=== PATIENT | male | born 1965 | race African-American/Black ===

== ENCOUNTER → 2017-07-02 | Day surgery (SDC) | payer MEDICARE ==
[2017-07-02 07:48] VITALS: TEMP 97.7
--- NOTE | 2017-07-02 11:56 | SPC ---
LEFT UPPER EXTREMITY ARTERIOVENOUS DIALYSIS FISTULOGRAM AND VENOGRAM TO THE SVC: TOOL DRAWING CHECKER FOCAL STENOSIS VENOUS OUTFLOW: 07/02/2017 HISTORY: End-stage renal disease. The patient has a left upper extremity arteriovenous dialysis fistula with inadequacy at dialysis. TECHNIQUE: After informed consent was obtained, the patient was placed on the angiography table in the supine po sition. The left upper extremity was meticulously prepped and draped in the usual sterile fashion. The skin and subcutaneous tissues were infiltrated with buffered 1% Lidocaine for local anesthesia at the intended puncture site. A left upper extremity arteriovenous dialysis fistula was accessed and directed in a venous direction utilizing a micropuncture technique. A 5 [place] Citizen introducer sheath was placed. A fistulogram and venogram of the SVC was performed. Manual compression was applied to the venous ou tflow, and contrast was refluxed into the arteriovenous anastomotic. A focal area of narrowing was seen in the venous outflow, at the level of the venous anastomosis. PT A with 6 mm followed by 7 mm in diameter angioplasty balloons was performed. There was persistence o f this narrowing after angioplasty, although the degree of narrowing was mildly improved. There was brisk flow and wash-out of the fistula. The procedure was terminated at this point. The guide wire and 5 [place] Citizen vascular sheath were removed. Hemostasis was achieved with direct pressure. The patien t tolerated the procedure well and without immediate complications. The patient was transported to [facility] radiology nurses' holding area for further monitoring prior to discharge. FINDINGS: LEFT UPPER EXTREMITY ARTERIOVENOUS DIALYSIS FISTULA: There is evidence of prior post surgical change s with a stent overlying the expected location of the cephalic vein outflow, at the level of the henrietta ohumeral joint. Embolization coils are also seen within collateral vessels. When compared to prior exam on 05/11/2016, there is a new venous anastomotic at the level of the proximal humerus. In this region, there is a focal area of moderate to severe narrowing, and the degree of narrowing is greater than 50%, compared to the caliber of the fistula proximal to this area of narrowing. As a result, a ngioplasty was performed with a 6 mm angioplasty balloon. The angioplasty balloon was able to achiev e full profile, but the area of narrowing did persist on follow-up venogram. As a result, a 7 mm fabby meter angioplasty balloon was then placed, and TOOL DRAWING CHECKER was performed; however, the waist in the balloon w as unable to be resolved after repeated insufflations. The area of narrowing did mildly improve but certainly persists. There is brisk flow and wash-out through the fistula. There is an additional area of narrowing seen in the proximal venous outflow, but this is also the si te of access of the fistula. This focal area of narrowing was also present on the study of 7. Angioplasty of this region was not performed due to the access site. Again, there is brisk flow and wash-out present. The proximal portion of the venous outflow is unchanged compared to the study on 05/11/2016. Arteriovenous anastomosis is patent, and the venous outflow is otherwise patent to the SVC. IMPRESSION: 1. Moderate to severe focal narrowing at the level of the venous anastomosis, and there has been int erval revision of the arteriovenous dialysis fistula when compared to the study on 05/11/2016. 2. Percutaneous transluminal angioplasty of a focal area of narrowing at the venous anastomosis, up to 7 mm in diameter. While there is mild improvement in the diameter in this region, the angioplasty balloon was unable to reach full profile. 3. Focal narrowing in the proximal venous outflow, but this was also present on the study of 017. 4. Patent arteriovenous anastomosis. The above findings were discussed with Dr. Pierre at the termination of this procedure. CODE CR POS: CALE
== END ==
LOC: SPEC 07:09
PROVIDERS: ATTEND Internal Medicine Nephrology
PROC: 057F3ZZ Dilation of Left Cephalic Vein, Percutaneous Approach (ICD-10-PCS; principal; 2017-07-02)
DX: T82.858A Stenosis of other vascular prosthetic devices, implants and grafts, initial encounter (principal); I12.0 Hypertensive chronic kidney disease with stage 5 chronic kidney disease or end stage renal disease; E11.22 Type 2 diabetes mellitus with diabetic chronic kidney disease; N18.6 End stage renal disease; Z79.84 Long term (current) use of oral hypoglycemic drugs; Z79.899 Other long term (current) drug therapy; Z99.2 Dependence on renal dialysis
CPT/HCPCS: 36901; 36902; C1725; C1769

== ENCOUNTER 2019-02-01 15:49 | Emergency (ER) | payer MEDICARE ==
[2019-02-01 16:34] LABS: #Basophils 0.1 thou/uL (0.0-0.2); #Eosinphils 0.4 thou/uL (0.0-0.7); #Lymphocytes 1.6 thou/uL (1.20-3.40); #Monocytes 1.2 thou/uL (0.11-0.59); #Neutrophils 7.6 thou/uL (1.40-6.50); %Basophils 0.5 % (0.0-1.0); %Monocytes 10.7 % (0.0-10.0); %Neutrophils 69.7 % (42.0-75.0); Hemoglobin 11.3 g/dL (14.0-18.0); Mean Corpuscular HGB CONC 33.3 g/dL (32.0-36.0); Mean Corpuscular Hemoglobin 30.6 pg (27.0-31.0); Mean Corpuscular Volume 91.8 fL (78.0-98.0); Mean Platelet Volume 7.2 fL (7.4-10.4); Platelet Count 305 thou/uL (130-400); RBC Distribution Width 12.6 % (11.5-14.5); Red Blood Cell (RBC) Count 3.68 mill/uL (4.70-6.10); White Blood Cell (WBC) Count 10.9 thou/uL (4.8-10.8)
[2019-02-01] MEDS ORDERED: Iopamidol-370 76% 500 ML 1 ML ONE (16:51)
[2019-02-01 16:53] LABS: ALT (SGPT) 7 U/L (8-55); AST (SGOT) 13 U/L (5-34); Albumin 3.7 g/dL (3.5-5.0); Alkaline Phosphatase 70 U/L (40-110); Anion Gap 19 mmol/L (10-20); BUN (Urea Nitrogen) 41 mg/dL (8.4-25.7); Bilirubin, Total 0.3 mg/dL (0.2-1.2); Calc. Creatinine Clearance 0 mL/min (70-130); Calcium 8.6 mg/dL (7.8-10.44); Carbon Dioxide 26 mmol/L (22-29); Chloride 96 mmol/L (98-107); Estimated GFR-MDRD 5; Globulin 4.4 g/dL (2.4-3.5); Glucose 102 mg/dL (70-105); Protein, Total 8.1 g/dL (6.0-8.3); Sodium 137 mmol/L (136-145)
[2019-02-01] MEDS ORDERED: Fentanyl 100 MCG/2 ML VIAL ONE (17:44)
--- NOTE | 2019-02-01 21:17 | CT ---
ABDOMEN CT WITH CONTRAST PELVIC CT WITH CONTRAST: Date: 02/01/19 COMPARISON: 05/14/16. HISTORY: Abdominal pain, hypertension and end-stage renal disease. FINDINGS: ABDOMEN CT: Dependent atelectatic changes in the lung bases. Heart is enlarged. No significant pericardial fluid. Visualized aorta has a normal caliber. No periaortic fat stranding. Atherosclerosis of the celiac ar louie is noted. Portal vein is patent. Unremarkable gallbladder. Liver, spleen, pancreas, and adrenal glands have appropriate attenuation. No gastrohepatic, retrocrural, or periportal lymphadenopathy. There are enlarged left periaortic lymp h nodes. Type Disk Quality Control Supervisor lymph node measures 1.2 cm. Symmetric attenuation of the psoas muscles. Symmetric enhancement of the kidneys. Exophytic hypodensities compatible with renal cortical cysts. B ilaterally, no obstructive uropathy. No mesenteric mass, lymphadenopathy, free air, or free fluid. Limited evaluation of the alimentary canal by lack of oral contrast. No evidence of bowel obstruction . Normal ileocecal junction. Normal caliber appendix. Scattered fecal material in nondistended, nondilated colon. CT PELVIS: Limited evaluation of the urinary bladder due to inadequate distention. No pelvic mass, lymphadenopat hy, free air, or free fluid. There is perirectal fat stranding. The possibility of proctitis cannot b e excluded. There are no lytic or blastic lesions in the osseous structures. IMPRESSION: Possible proctitis. POS: P[facility]
== END 2019-02-01 21:01 | disposition home or self-care (01) ==
LOC: ERS 15:49
DX: K62.89 Other specified diseases of anus and rectum (principal); I12.0 Hypertensive chronic kidney disease with stage 5 chronic kidney disease or end stage renal disease; E11.22 Type 2 diabetes mellitus with diabetic chronic kidney disease; N18.6 End stage renal disease; Z99.2 Dependence on renal dialysis; Z79.899 Other long term (current) drug therapy
CPT/HCPCS: 36415; 74177; 80053; 85025; 96372; 96374; J0500; J3010; Q9967

== ENCOUNTER 2019-02-09 15:38 | Emergency (ER) | payer MEDICARE ==
[2019-02-09 17:10] LABS: #Eosinphils 0.3 thou/uL (0.0-0.7); #Lymphocytes 1.8 thou/uL (1.20-3.40); %Basophils 0.3 % (0.0-1.0); %Eosinophils 3.1 % (0.0-10.0); %Lymphocytes 17.7 % (21.0-51.0); %Monocytes 9.6 % (0.0-10.0); %Neutrophils 69.4 % (42.0-75.0); Hemoglobin 10.3 g/dL (14.0-18.0); Mean Corpuscular Hemoglobin 29.7 pg (27.0-31.0); Mean Corpuscular Volume 92.8 fL (78.0-98.0); Mean Platelet Volume 6.6 fL (7.4-10.4); Platelet Count 349 thou/uL (130-400); RBC Distribution Width 12.8 % (11.5-14.5); Red Blood Cell (RBC) Count 3.46 mill/uL (4.70-6.10); White Blood Cell (WBC) Count 10.1 thou/uL (4.8-10.8)
[2019-02-09 17:39] LABS: ALT (SGPT) 10 U/L (8-55); AST (SGOT) 17 U/L (5-34); Albumin 3.7 g/dL (3.5-5.0); Alkaline Phosphatase 55 U/L (40-110); Anion Gap 16 mmol/L (10-20); BUN (Urea Nitrogen) 49 mg/dL (8.4-25.7); Bilirubin, Total 0.2 mg/dL (0.2-1.2); Calc. Creatinine Clearance 0 mL/min (70-130); Calcium 9.1 mg/dL (7.8-10.44); Carbon Dioxide 28 mmol/L (22-29); Chloride 96 mmol/L (98-107); Estimated GFR-MDRD 4; Globulin 4.5 g/dL (2.4-3.5); Glucose 108 mg/dL (70-105); Protein, Total 8.2 g/dL (6.0-8.3); Sodium 136 mmol/L (136-145)
== END 2019-02-09 18:05 | disposition home or self-care (01) ==
LOC: ERS 15:38
DX: I12.0 Hypertensive chronic kidney disease with stage 5 chronic kidney disease or end stage renal disease (principal); N18.6 End stage renal disease; E11.22 Type 2 diabetes mellitus with diabetic chronic kidney disease; Z79.891 Long term (current) use of opiate analgesic; Z79.899 Other long term (current) drug therapy
CPT/HCPCS: 36415; 80053; 85025; 99283

== ENCOUNTER 2019-03-21 18:30 | Emergency (ER) | payer MEDICARE ==
--- NOTE | 2019-03-21 19:22 | RAD ---
PORTABLE CHEST: 03/21/19 HISTORY: Cough and fever. COMPARISON: 08/13/14 study. Heart size is within normal limits for portable technique. Some slightly increased markings are seen in the lung bases. Cannot exclude this as some early developing infiltrative change although it coul d just be related to overlying soft tissue. IMPRESSION: Minimally increased markings in the lung bases. Cannot exclude some minimal infiltrate, particularly adjacent to the left heart border. POS: [facility]
[2019-03-21] MEDS ORDERED: Acetaminophen 500 MG TAB ONE (20:10)
[2019-03-21] MEDS ORDERED: cefTRIAXone\\ROCEPHIN 2 GM VIAL ONE (20:10)
[2019-03-21] MEDS ORDERED: Lidocaine 1% (PF) 30 ML VIAL ONE (20:10)
[2019-03-21] MEDS ORDERED: Ondansetron ODT 8 MG TAB ONE (20:10)
[2019-03-21 20:37] LABS: #Eosinphils 0.1 thou/uL (0.0-0.7); #Lymphocytes 1.5 thou/uL (1.20-3.40); #Monocytes 0.9 thou/uL (0.11-0.59); #Neutrophils 11.5 thou/uL (1.40-6.50); %Basophils 0.1 % (0.0-1.0); %Eosinophils 0.9 % (0.0-10.0); %Lymphocytes 10.4 % (21.0-51.0); %Monocytes 6.7 % (0.0-10.0); %Neutrophils 81.9 % (42.0-75.0); Hemoglobin 10.5 g/dL (14.0-18.0); Mean Corpuscular HGB CONC 31.5 g/dL (32.0-36.0); Mean Corpuscular Hemoglobin 29.4 pg (27.0-31.0); Mean Corpuscular Volume 93.4 fL (78.0-98.0); Mean Platelet Volume 8.8 fL (7.4-10.4); Platelet Count 195 thou/uL (130-400); RBC Distribution Width 14.4 % (11.5-14.5); Red Blood Cell (RBC) Count 3.58 mill/uL (4.70-6.10)
[2019-03-21 20:53] LABS: ALT (SGPT) 23 U/L (8-55); AST (SGOT) 13 U/L (5-34); Albumin 3.6 g/dL (3.5-5.0); Alkaline Phosphatase 53 U/L (40-110); Anion Gap 19 mmol/L (10-20); BUN (Urea Nitrogen) 35 mg/dL (8.4-25.7); Bilirubin, Total 0.5 mg/dL (0.2-1.2); Calc. Creatinine Clearance 0 mL/min (70-130); Calcium 8.9 mg/dL (7.8-10.44); Carbon Dioxide 24 mmol/L (22-29); Chloride 99 mmol/L (98-107); Estimated GFR-MDRD 7; Glucose 103 mg/dL (70-105); Potassium 3.7 mmol/L (3.5-5.1); Protein, Total 7.6 g/dL (6.0-8.3); Sodium 138 mmol/L (136-145)
[2019-03-21] MEDS ORDERED: cloNIDine 0.1 MG TAB ONE (21:35)
== END 2019-03-21 22:10 | disposition home or self-care (01) ==
LOC: ERS 18:30
DX: J18.9 Pneumonia, unspecified organism (principal); I12.0 Hypertensive chronic kidney disease with stage 5 chronic kidney disease or end stage renal disease; E11.22 Type 2 diabetes mellitus with diabetic chronic kidney disease; N18.6 End stage renal disease; Z99.2 Dependence on renal dialysis
CPT/HCPCS: 36415; 71045; 80053; 85025; 87040; 87804; 96372; J0696; J2001

== ENCOUNTER 2020-04-10 12:42 | Inpatient (IN) | payer MEDICARE ==
[2020-04-10] MEDS ORDERED: Vancomycin 1 GM/200 ML BAG ONE ×2 (13:28→16:18)
[2020-04-10] MEDS ORDERED: Cefepime 2 GM VIAL ONE (13:28)
[2020-04-10 14:15] LABS: Hemoglobin 11.4 g/dL (14.0-18.0); Mean Corpuscular HGB CONC 31.7 g/dL (32.0-36.0); Mean Corpuscular Hemoglobin 29.9 pg (27.0-31.0); Mean Corpuscular Volume 94.2 fL (78.0-98.0); Mean Platelet Volume 7.9 fL (7.4-10.4); Platelet Count 312 thou/uL (130-400); RBC Distribution Width 13.6 % (11.5-14.5); Red Blood Cell (RBC) Count 3.82 mill/uL (4.70-6.10); White Blood Cell (WBC) Count 19.1 thou/uL (4.8-10.8)
--- NOTE | 2020-04-10 14:16 | RAD ---
RIGHT FOOT RADIOGRAPHS: Date: 04-10-2020 PROVIDED CLINICAL HISTORY: Right foot blister Comparison: 09-22-15 FINDINGS: There is soft tissue swelling about the great toe proximally. Foci of soft tissue gas are seen. There is no osteolytic process evident. The first MTP and first IP joint spaces appear preserved. Small pl rusty calcaneal enthesophyte. Vascular calcification is noted. IMPRESSION: Soft tissue swelling and soft tissue gas about the proximal great toe compatible with infectious greer ge. There is no radiographic evidence for osteomyelitis. POS: [facility]
[2020-04-10] MEDS ORDERED: Lidocaine 1% (PF) 30 ML VIAL ONE (14:26)
[2020-04-10 14:30] LABS: Magnesium 2.4 mg/dL (1.6-2.6)
[2020-04-10 14:32] LABS: ALT (SGPT) 14 U/L (8-55); AST (SGOT) 25 U/L (5-34); Albumin 3.7 g/dL (3.5-5.0); Alkaline Phosphatase 76 U/L (40-110); Anion Gap 24 mmol/L (10-20); BUN (Urea Nitrogen) 55 mg/dL (8.4-25.7); Band 8 % (5-11); Bilirubin, Total 0.5 mg/dL (0.2-1.2); Calc. Creatinine Clearance 0 mL/min (70-130); Carbon Dioxide 24 mmol/L (22-29); Chloride 89 mmol/L (98-107); Globulin 4.4 g/dL (2.4-3.5); Glucose 159 mg/dL (70-105); Lymphocytes 2 % (21-51); MDiff Complete? YES; Monocytes 6 % (0-10); Neutrophil 84 % (42-75); Platelet Morphology Comment Appears Adequate; Polychromasia SLIGHT = 2-3 cells (100X) (0-2/hpf); Protein, Total 8.1 g/dL (6.0-8.3); Sodium 133 mmol/L (136-145)
[2020-04-10] MEDS ORDERED: Bacitracin 1 PK ONE (14:50)
[2020-04-10] MEDS ORDERED: Boostrix 0.5 ML (Tdap) VIAL ONE (15:26)
[2020-04-10] MEDS ORDERED: Acetaminophen 325 MG TAB PO PRN (16:01)
--- NOTE | 2020-04-10 16:07 | PDOC.HHP ---
Hospitalist HPI - History of Present Illness Abscess on right great toe History of Present Illness: 55-year-old gentleman with a history of end-stage renal disease on hemodialysis presented to the emergency department with a complaint of an abscess on the sole of the right great toe. Patient stated he developed a small blister on the right great toe 2 days ago. It rapidly progressed to form a fluctuant abcess. He denies any pain in the lesion. He denies any fever. Blood work in the emergency department demonstrated leukocytosis with BBC count up to 19,000. X- ray of the foot demonstrated soft tissue swelling and soft tissue gas in the right great toe. It demonstrated no bony involvement. Patient met criteria for sepsis in the ED with leukocytosis and tachycardia. He is afebrile. The ED ph ysician did an I&D and reports about 20 ml of pus was drained from the lesion. Patient is admitted for further management. ED Course: IV vancomycin IV cefepime Tetanus booster shot Hospitalist ROS - Medication Medications: Except as documented, all other systems reviewed and negative. Hospitalist History - Past Medical History Renal/: reports: Other (End-stage renal disease on hemodialysis) Endocrine: reports: Diabetes Other Medical History: Obesity. - Past Surgical History Other Surgical History: Left arm AV fistula. - Family History Family History: reports: cancer (Father had lung cancer), diabetes mellitus (Mother) - Social History Smoking Status: Never smoker Alcohol: reports: None - Exam General Appearance: NAD, awake alert Eye: PERRL, anicteric sclera ENT: normocephalic atraumatic, moist mucosa Neck: supple, no JVD Heart: RRR, no murmur, normal peripheral pulses Respiratory: CTAB, no wheezes, no rales, no ronchi Gastrointestinal: soft, non-tender, non-distended, normal bowel sounds Extremities: no cyanosis, no edema Skin - other findings: I & D Fluctuant lesion-dorsum of right great toe. Neurological: cranial nerve grossly intact, no weakness, no focal deficits Musculoskeletal: normal tone, normal strength Psychiatric: normal affect, normal behavior, A&O x 3 Hospitalist Results - Labs Result Diagrams: 04/10/20 13:32 04/10/20 13:32 Lab results: WBC 19.1 thou/uL (4.8-10.8) H 04/10/20 13:32 Hgb 11.4 g/dL (14.0-18.0) L 04/10/20 13:32 Hct 36.0 % (42.0-52.0) L 04/10/20 13:32 MCV 94.2 fL (78.0-98.0) 04/10/20 13:32 Plt Count 312 thou/uL (130-400) 04/10/20 13:32 Band Neuts % (Manual) 8 % (5-11) 04/10/20 13:32 Sodium 133 mmol/L (136-145) L 04/10/20 13:32 Potassium 4.0 mmol/L (3.5-5.1) 04/10/20 13:32 Chloride 89 mmol/L (98-107) L 04/10/20 13:32 Carbon Dioxide 24 mmol/L (22-29) 04/10/20 13:32 BUN 55 mg/dL (8.4-25.7) H 04/10/20 13:32 Creatinine 12.90 mg/dL (0.7-1.3) H 04/10/20 13:32 Glucose 159 mg/dL (70-105) H 04/10/20 13:32 Lactic Acid 1.4 mmol/L (0.5-2.2) 04/10/20 13:32 Calcium 9.0 mg/dL (7.8-10.44) 04/10/20 13:32 Total Bilirubin 0.5 mg/dL (0.2-1.2) 04/10/20 13:32 AST 25 U/L (5-34) 04/10/20 13:32 ALT 14 U/L (8-55) 04/10/20 13:32 Alkaline Phosphatase 76 U/L (40-110) 04/10/20 13:32 Serum Total Protein 8.1 g/dL (6.0-8.3) 04/10/20 13:32 Albumin 3.7 g/dL (3.5-5.0) 04/10/20 13:32 Hospitalist H&P A/P - Problem (1) Cellulitis and abscess of toe of right foot Code(s): L03.031 - CELLULITIS OF RIGHT TOE; L02.611 - CUTANEOUS ABSCESS OF RIGHT FOOT Status: Acute (2) Sepsis Code(s): A41.9 - SEPSIS, UNSPECIFIED ORGANISM Status: Acute (3) Diabetes mellitus type 2 in obese Code(s): E11.69 - TYPE 2 DIABETES MELLITUS WITH OTHER SPECIFIED COMPLICATION; E66.9 - OBESITY, UNSPECIFIED Status: Acute (4) End stage renal disease on dialysis Code(s): N18.6 - END STAGE RENAL DISEASE; Z99.2 - DEPENDENCE ON RENAL DIALYSIS Status: Chronic - Plan Plan: Sepsis protocol initiated in the ED. Lactate less than 2. Admit to the medical floor. Continue IV cefepime and vancomycin started in the ED. Follow blood cultures and deep tissue wound culture. Consult to nephrology for hemodialysis. Given the presence of gas in the lesion suggesting gas gangrene, will consult general surgery to evaluate. Wound care consult requested. Check hemoglobin A1c.
[2020-04-10] MEDS ORDERED: Vancomycin HCl 1 GM in Sodium Chloride 0.9% 250 ML 250 ML IVPB SCH (16:15)
--- NOTE | 2020-04-10 17:27 | CON ---
DATE OF CONSULTATION: 04/10/2020 CONSULTING PHYSICIAN: Dr. Tucker from ER. REASON FOR CONSULTATION: End-stage renal disease evaluation and care. REASON FOR ADMISSION: Right leg pain, positive for cellulitis. HISTORY OF PRESENT ILLNESS: This is a 55-year-old male with history of end-stage renal disease, hypertension, type 2 diabetes, who came to the hospital with above complaints and is evaluated and being admitted. He gets dialysis on Saturday, Saturday, and Saturday. Nephrology consulted for maintenance hemodialysis. He denies any nausea or vomiting. No shortness of breath. He is not hypoxic. PAST MEDICAL HISTORY: Positive for type 2 diabetes; end-stage renal disease, on hemodialysis on Saturday, Saturday, and Saturday; hypertension; and peripheral vascular disease. PAST SURGICAL HISTORY: Left great toe amputation and dialysis access placement. HOME MEDICATIONS: Reviewed. ALLERGIES: NO KNOWN DRUG ALLERGIES. SOCIAL HISTORY: No smoking, alcohol, or illicit drugs abuse. FAMILY HISTORY: No history of kidney disease. REVIEW OF SYSTEMS: CONSTITUTIONAL: Negative for weight loss or gain, ability to conduct usual activities. SKIN: Negative for rash, itching. EYES: Negative for double vision, pain. ENT/MOUTH: Negative for nose bleeding, neck stiffness, pain, tenderness. CARDIOVASCULAR: Negative for palpitations, dyspnea on exertion, orthopnea. RESPIRATORY: Negative for shortness of breath, wheezing, cough, hemoptysis, fever or night sweats. GASTROINTESTINAL: Negative for poor appetite, abdominal pain, heartburn, nausea, vomiting, constipation, or diarrhea. GENITOURINARY: Negative for urgency, frequency, dysuria, nocturia. MUSCULOSKELETAL: Negative for pain, swelling. NEUROLOGIC/PSYCHIATRIC: Negative for anxiety, depression. ALLERGY/IMMUNOLOGIC: Negative for skin rash, bleeding tendency. PHYSICAL EXAMINATION: GENERAL: This is a well-built male, in no apparent distress. VITAL SIGNS: Reviewed. HEENT: Atraumatic, normocephalic. NECK: Supple. CV: S1 and S2. Rate and rhythm regular. RESPIRATORY: Clear. GASTROINTESTINAL: Abdomen is soft. MUSCULOSKELETAL: 1+ edema and ulcer present in the right lower leg. NEUROLOGICAL: Alert, awake. Moving all the extremities. PSYCHIATRIC: Mood and affect normal. LABORATORY DATA: Hemoglobin 11.4. Potassium 4.0, BUN is 55, creatinine is 12.9. ASSESSMENT AND PLAN: 1. End-stage renal disease. We will continue dialysis on Saturday, Saturday, and Saturday. 2. Edema. 3. History of hypertension. 4. Anemia of chronic disease. 5. Hyponatremia. Continue dialysis on Saturday, Saturday, and Saturday. Thank you for the consult. Continue antibiotics. Job ID: [id number]
[2020-04-10] MEDS ORDERED: hydrALAZINE 20 MG/ML VIAL SLOW IVP PRN (19:01)
[2020-04-10 19:28] VITALS: BMI 38.0
[2020-04-10] MEDS: Heparin 5,000 UNITS/ML VIAL SC SCH (20:23)
[2020-04-10] MEDS ORDERED: cloNIDine 0.1 MG TAB PO SCH (21:00)
[2020-04-10] MEDS ORDERED: chlorproMAZINE HCl 25 MG TAB PO SCH (21:30)
[2020-04-10] MEDS: hydrALAZINE 25 MG TAB PO SCH (21:50)
[2020-04-10] MEDS: Labetalol 100 MG TAB PO SCH (21:50)
[2020-04-10 23:15] LABS: SARS-CoV-2 PCR by NAA Not Detected (NotDetected)
[2020-04-11] MEDS: Cefepime 1 GM in Sodium Chloride 0.9% 100 ML IVPB SCH ×2 (03:48→13:26)
[2020-04-11 06:40] LABS: Anion Gap 24 mmol/L (10-20); BUN (Urea Nitrogen) 69 mg/dL (8.4-25.7); Calc. Creatinine Clearance 10 mL/min (70-130); Calcium 8.9 mg/dL (7.8-10.44); Carbon Dioxide 22 mmol/L (22-29); Chloride 91 mmol/L (98-107); Glucose 135 mg/dL (70-105); Potassium 3.6 mmol/L (3.5-5.1); Sodium 133 mmol/L (136-145)
[2020-04-11 06:47] LABS: Hemoglobin 10.3 g/dL (14.0-18.0); Mean Corpuscular HGB CONC 31.2 g/dL (32.0-36.0); Mean Corpuscular Hemoglobin 29.4 pg (27.0-31.0); Mean Corpuscular Volume 94.2 fL (78.0-98.0); Mean Platelet Volume 7.7 fL (7.4-10.4); Platelet Count 322 thou/uL (130-400); RBC Distribution Width 13.8 % (11.5-14.5); Red Blood Cell (RBC) Count 3.52 mill/uL (4.70-6.10); White Blood Cell (WBC) Count 16.4 thou/uL (4.8-10.8)
[2020-04-11 06:48] LABS: Band 2 % (5-11); Eosinophils 5 % (0-10); Lymphocytes 12 % (21-51); MDiff Complete? YES; Monocytes 10 % (0-10); Neutrophil 71 % (42-75); Platelet Morphology Comment Appears Adequate
[2020-04-11] MEDS: Heparin 5,000 UNITS/ML VIAL SC SCH ×3 (08:46→21:01)
[2020-04-11] MEDS: Lisinopril 20 MG TAB PO SCH (08:47)
[2020-04-11] MEDS: Labetalol 100 MG TAB PO SCH ×2 (08:47→21:01)
[2020-04-11] MEDS: hydrALAZINE 25 MG TAB PO SCH ×4 (08:47→21:01)
--- NOTE | 2020-04-11 19:09 | PRG ---
DATE OF SERVICE: 04/11/2020 SUBJECTIVE: A 55-year-old gentleman being seen for end-stage renal disease. The patient denied any nausea, vomiting, or chest pain. OBJECTIVE: GENERAL: The patient is awake and alert. VITAL SIGNS: Afebrile, pulse 78, breathing at 16, blood pressure 124/60. HEENT: Head normocephalic and atraumatic. Eyes intact, no ulcers. Nose intact, no ulcers. Ears intact, no ulcers. NECK: Supple. No JVD. CHEST: Symmetrical and clear. CARDIOVASCULAR: Shows S1 and S2, no rub, no murmur. GASTROINTESTINAL: Abdomen is soft, bowel sounds positive. EXTREMITIES: Show no edema or ulcers. SKIN: Shows no rash or petechiae. MUSCULOSKELETAL: Shows no joint swelling or stiffness. GENITOURINARY: Shows no Madsen or CVA tenderness. NEUROLOGIC: Motor intact. Cranial nerves intact. LABORATORY DATA: Show hemoglobin 10.3. Creatinine 14.6. ASSESSMENT AND PLAN: 1. Chronic kidney disease, stage 6. Plan dialysis. 2. Hypertension, stable. 3. Anemia, stable. 4. Medication based on GFR, appropriate. Job ID: [id number]
--- NOTE | 2020-04-11 19:37 | PDOC.HOSPP ---
- Subjective Encounter Date: 04/11/20 Encounter Time: 18:00 Subjective: f/u for DM R great toe ulcer with plans for amputation 04/12/20. Receiving Cefepime/Vancomycin IV. Undergoing HD currently. - Objective Vital Signs & Weight: Vital Signs (12 hours) Temp Pulse Resp BP BP Pulse Ox 04/11/20 19:17 78 04/11/20 15:16 99.1 F 78 18 145/61 H 96 04/11/20 13:24 77 04/11/20 11:52 98.6 F 77 18 124/60 98 04/11/20 08:47 83 159/82 H Weight Weight 279 lb 15.793 oz I&O: 04/10/20 04/11/20 04/12/20 06:59 06:59 06:59 Intake Total 525 Balance 525 Result Diagrams: 04/11/20 05:52 04/11/20 05:52 Additional Labs: Microbiology 04/10/20 14:46 Foot - Pending Bacterial Culture - Preliminary Gram Negative Chivo 04/10/20 13:48 Venous blood - Right Hand Blood Culture - Preliminary Specimen has been received and culture in progress. No Growth to date. 04/10/20 13:32 Venous blood - Right Arm Blood Culture - Preliminary Specimen has been received and culture in progress. No Growth to date. Laboratory Tests 04/10/20 04/10/20 04/10/20 13:32 13:32 13:32 WBC 19.1 H Hgb 11.4 L Neutrophils % (Manual) 84 H Sodium 133 L BUN 55 H Creatinine 12.90 H Phosphorus 5.0 H Magnesium 2.4 SARS-CoV-2 RNA (CHRISTY) 04/10/20 18:25 WBC Hgb Neutrophils % (Manual) Sodium BUN Creatinine Phosphorus Magnesium SARS-CoV-2 RNA (CHRISTY) Not Detected Radiology Reviewed by me: Yes (R foot x-ray - ? osteolytic process of great toe distal phalanx, subq gas) Hospitalist ROS - Medication Medications: Active Medications Generic Name Dose Route Start Last Admin Trade Name Freq PRN Reason Stop Dose Admin Heparin Sodium (Porcine) 5,000 units 04/10/20 21:00 04/11/20 13:26 Heparin 5,000 Units/Ml Vial SC 5,000 units TID DARLENE Administration Hydralazine HCl 25 mg 04/10/20 21:00 04/11/20 19:17 Hydralazine 25 Mg Tab PO Not Given QID DARLENE Cefepime HCl 1 gm/ Sodium 100 mls @ 200 mls/hr 04/11/20 02:00 04/11/20 13:26 Chloride IVPB 100 mls 0200,1400 DARLENE Administration Labetalol HCl 100 mg 04/10/20 21:00 04/11/20 08:47 Labetalol 100 Mg Tab PO 100 mg BID DARLENE Administration Lisinopril 40 mg 04/11/20 09:00 04/11/20 08:47 Lisinopril 20 Mg Tab PO 40 mg DAILY DARLENE Administration Sodium Chloride 10 ml 04/10/20 21:00 04/11/20 08:47 Flush - Normal Saline 10 Ml Syringe IVF 10 ml Q12HR DARLENE Administration - Exam General Appearance: NAD, awake alert Eye: PERRL, anicteric sclera ENT: normocephalic atraumatic, no oropharyngeal lesions Neck: supple, symmetric, no JVD, no thyromegaly, no lymphadenopathy Heart: RRR, no gallops, no rubs, normal peripheral pulses Heart - other findings: S1, S2 Respiratory: CTAB, no wheezes, no rales, no ronchi, normal chest expansion, no tachypnea Gastrointestinal: soft, non-tender, non-distended, normal bowel sounds, no palpable masses Extremities: 1+ LE edema Extremities - other findings: R great toe edema/ulceration/erythema Skin: normal turgor Neurological: cranial nerve grossly intact, no new deficit Musculoskeletal: normal tone, normal strength Psychiatric: normal affect, A&O x 3 Hosp A/P (1) Osteomyelitis of great toe of right foot Code(s): M86.9 - OSTEOMYELITIS, UNSPECIFIED Status: Acute Plan: Plan for amputation of R great toe 04/12/20, continue Cefepime/Vancomycin (2) Cellulitis and abscess of toe of right foot Code(s): L03.031 - CELLULITIS OF RIGHT TOE; L02.611 - CUTANEOUS ABSCESS OF RIGHT FOOT Status: Acute Plan: Continue Cefepime/Vancomycin (3) Diabetes mellitus type 2 in obese Code(s): E11.69 - TYPE 2 DIABETES MELLITUS WITH OTHER SPECIFIED COMPLICATION; E66.9 - OBESITY, UNSPECIFIED Status: Chronic Plan: ISS, check A1C level, ADA, serial accuchecks (4) End stage renal disease on dialysis Code(s): N18.6 - END STAGE RENAL DISEASE; Z99.2 - DEPENDENCE ON RENAL DIALYSIS Status: Chronic Plan: HD per Renal service (5) HTN (hypertension) Code(s): I10 - ESSENTIAL (PRIMARY) HYPERTENSION Status: Chronic Qualifiers: Hypertension type: renovascular hypertension Qualified Code(s): I15.0 - Renovascular hypertension - Plan continue antibiotics, drug abuse social worker Stable currently Continue Cefepime/Vancomycin WCT for local care Pain control as clinically indicated ISS, serial accuchecks NPO after MN AM lab: BMP, CBC, A1C
[2020-04-11] MEDS ORDERED: Dextrose 5% in Water 1,000 ML IV PRN (19:47)
[2020-04-11] MEDS ORDERED: Dextrose 50% Abboject 50 ML SYRINGE SLOW IVP PRN (19:47)
[2020-04-11] MEDS ORDERED: HumaLOG 300 UNITS/3 ML VIAL SC PRN (19:47)
[2020-04-11] MEDS ORDERED: chlorproMAZINE HCl 25 MG TAB PO SCH (21:45)
--- NOTE | 2020-04-11 21:53 | CON ---
DATE OF CONSULTATION: 04/11/2020 CHIEF COMPLAINT: Right great toe infection. HISTORY OF PRESENT ILLNESS: The patient is a 55-year-old very pleasant black gentleman. He presented to the emergency room with concerns regarding his right great toe. He has a history of a left 1st and 2nd toe amputations a few years ago. He believes that this was a blister on his right foot. In the emergency room, a drainage procedure was performed with an incision on the plantar aspect at the base of the 1st toe. Apparently, some purulent material was expressed. Cultures were obtained. Initial culture results show gram-negative rods. The patient denies pain. He is uncertain how this occurred, but believes it may have been related to shoes that he was wearing. In the emergency room, he was apparently tachycardic, but currently his heart rate is in the 70s and regular. His blood pressure is 145/61. PAST MEDICAL HISTORY: Significant for end-stage renal disease, on dialysis; and hypertension. He specifically denies any knowledge of a history of diabetes and denies ever taking any diabetic medications. PAST SURGICAL HISTORY: Left arm AV fistula and had two toe amputations on the left foot. He denies other surgery. MEDICATIONS: He is uncertain of his medications, but takes medications for hypertension. ALLERGIES: NO KNOWN DRUG ALLERGIES. PERSONAL AND SOCIAL HISTORY: He is with one grown child. He does not smoke nor does drink alcohol. He lives here in [place] and his brother lives with him occasionally. The patient is disabled. REVIEW OF SYSTEMS: Otherwise, unremarkable. FAMILY HISTORY: Noncontributory. PHYSICAL EXAMINATION: VITAL SIGNS: Temperature is 99.1, pulse 78, blood pressure 145/61. GENERAL: A well-developed, well-nourished, pleasant black male, in no acute distress. He is alert and oriented x3. HEAD, EYES, EARS, NOSE, AND THROAT: Unremarkable. NECK: Supple without mass or tenderness. CHEST: Clear to auscultation. CARDIAC: Regular rate and rhythm without murmur. ABDOMEN: Soft, nontender, nondistended. EXTREMITIES: He has palpable femoral pulse. He has some swelling on his right foot that makes it difficult for me to palpate pedal pulses. He has a mottled area of skin surrounding the base of his right great toe. There is a large hard deep callus on the plantar aspect. There is clearly fluid underneath this mottled area of skin. I sharply debrided the overlying blister revealing an area of necrotic tissue underneath. There was penetration down to the medial aspect of the MTP joint, although no definite bone was exposed. As I debrided the skin around this area, I entered an area of necrotic tissue in the interdigital space that penetrated deeply and again I did not definitely visualize or palpate bone, but this was too far advanced for this area to heal. LABORATORY DATA: Electrolytes show changes consistent with renal failure. His creatinine today is 14.6, potassium count however is normal at 3.6. CBC shows a white blood cell count 16.4, hemoglobin of 10.3, platelet count is 322. ASSESSMENT: The patient with necrotic right great toe. Recommend right great toe ray amputation. I have discussed the operation with the patient as well as potential risks. I explained that this will have to be an open amputation and will have to heal by secondary intention. He understands and agrees to proceed in this fashion. His surgery is being scheduled for tomorrow. Job ID: [id number]
[2020-04-12] MEDS: Cefepime 1 GM in Sodium Chloride 0.9% 100 ML IVPB SCH ×2 (03:09→13:35)
[2020-04-12 06:02] LABS: Band 4 % (5-11); Hemoglobin 10.6 g/dL (14.0-18.0); Hypochromia SLIGHT = 6-15 cells (100X) (0-5/hpf); Lymphocytes 8 % (21-51); MDiff Complete? YES; Mean Corpuscular HGB CONC 32.8 g/dL (32.0-36.0); Mean Corpuscular Hemoglobin 31.1 pg (27.0-31.0); Mean Corpuscular Volume 94.7 fL (78.0-98.0); Mean Platelet Volume 7.9 fL (7.4-10.4); Monocytes 12 % (0-10); Neutrophil 76 % (42-75); Platelet Count 346 thou/uL (130-400); Platelet Morphology Comment Appears Adequate; RBC Distribution Width 13.7 % (11.5-14.5); Red Blood Cell (RBC) Count 3.41 mill/uL (4.70-6.10); White Blood Cell (WBC) Count 18.3 thou/uL (4.8-10.8)
[2020-04-12 06:25] LABS: Anion Gap 21 mmol/L (10-20); BUN (Urea Nitrogen) 47 mg/dL (8.4-25.7); Calc. Creatinine Clearance 13 mL/min (70-130); Calcium 9.1 mg/dL (7.8-10.44); Carbon Dioxide 25 mmol/L (22-29); Chloride 93 mmol/L (98-107); Glucose 146 mg/dL (70-105); Potassium 3.4 mmol/L (3.5-5.1); Sodium 136 mmol/L (136-145)
[2020-04-12] MEDS: Labetalol 100 MG TAB PO SCH ×2 (08:10→20:12)
[2020-04-12] MEDS ORDERED: Vancomycin HCl 1.5 GM in Sodium Chloride 0.9% 250 ML 300 ML IVPB SCH (09:00)
[2020-04-12] MEDS ORDERED: Vancomycin 1 GM in Premix Bag 1 BAG IVPB SCH (09:00)
[2020-04-12] MEDS ORDERED: Vancomycin HCl 1.25 GM in Sodium Chloride 0.9% 250 ML 250 ML IVPB SCH (09:00)
[2020-04-12] MEDS ORDERED: HOLD VANCOMYCIN FOR LEVEL >20 SLOW IVP SCH (09:00)
[2020-04-12] MEDS ORDERED: Vancomycin HCl 750 MG in Sodium Chloride 0.9% 250 ML 250 ML IVPB SCH (09:00)
[2020-04-12] MEDS ORDERED: Bupivacaine HCl 0.5%/Epinephrine 1:200,000/PF 30 ml Vial ONE (09:08)
[2020-04-12] MEDS ORDERED: Ondansetron PF 4 MG/2 ML Vial ONE (09:08)
[2020-04-12] MEDS ORDERED: Propofol 500 MG/50 ML VIAL ONE (11:30)
[2020-04-12] MEDS ORDERED: HYDROcodone/Acetaminophen 7.5/325 mg Tablet PO PRN ×2 (12:11)
--- NOTE | 2020-04-12 12:32 | PRG ---
DATE OF SERVICE: 04/12/2020 SUBJECTIVE: A 55-year-old gentleman, being seen for end-stage renal disease. The patient denied nausea, vomiting, or chest pain. PHYSICAL EXAMINATION: General: The patient is awake and alert. Vital Signs: Afebrile, pulse 80, breathing at 16, blood pressure 114/83. HEENT: Head normocephalic and atraumatic. Eyes intact, no ulcers. Nose intact, no ulcers. Ears intact, no ulcers. Neck: Supple. No JVD. Chest: Symmetrical and clear. Cardiovascular: Shows S1 and S2, no rub, no murmur. Gastrointestinal: Abdomen is soft, bowel sounds positive. Extremities: Show no edema or ulcers. Skin: Shows no rash or petechiae. Musculoskeletal: Shows no joint swelling or stiffness. Genitourinary: Shows no Madsen or CVA tenderness. Neurologic: Motor intact. Cranial nerves intact. LABORATORY DATA: Reviewed. ASSESSMENT AND PLAN: 1. Chronic kidney disease, stage 6, stable. 2. Hypertension, stable. 3. Anemia, stable. 4. Medication based on GFR, appropriate. Job ID: [id number]
[2020-04-12] MEDS: hydrALAZINE 25 MG TAB PO SCH ×4 (13:35→20:11)
[2020-04-12] MEDS: Heparin 5,000 UNITS/ML VIAL SC SCH ×3 (13:38→20:11)
[2020-04-12] MEDS: Lisinopril 20 MG TAB PO SCH (13:38)
[2020-04-12] MEDS: HumaLOG 300 UNITS/3 ML VIAL SC PRN (18:15)
--- NOTE | 2020-04-12 19:34 | PDOC.HOSPP ---
- Subjective Encounter Date: 04/12/20 Encounter Time: 14:05 Subjective: f/u s/p R great toe amputation due to osteomyelitis/abscess/DM ulcer. Feels ok overall and no pain currently. - Objective Vital Signs & Weight: Vital Signs (12 hours) Temp Pulse Resp BP BP Pulse Ox 04/12/20 18:15 76 04/12/20 16:43 98.2 F 76 16 146/71 H 96 04/12/20 13:38 80 136/76 04/12/20 13:35 80 04/12/20 08:12 98.1 F 80 14 114/83 94 L 04/12/20 08:10 84 Weight Admit Weight 279 lb 15.792 oz Weight 279 lb 15.792 oz I&O: 04/11/20 04/12/20 04/13/20 06:59 06:59 06:59 Intake Total 525 Balance 525 Result Diagrams: 04/12/20 05:06 04/12/20 05:06 Additional Labs: Accuchecks 04/12/20 04/12/20 04/11/20 15:51 05:35 20:51 POC Glucose 199 H 135 H 106 H Microbiology 04/10/20 14:46 Foot - Pending Bacterial Culture - Preliminary Gram Negative Chivo 04/10/20 13:48 Venous blood - Right Hand Blood Culture - Preliminary Specimen has been received and culture in progress. No Growth to date. 04/10/20 13:32 Venous blood - Right Arm Blood Culture - Preliminary Specimen has been received and culture in progress. No Growth to date. Laboratory Tests 04/10/20 04/10/20 04/10/20 13:32 13:32 13:32 WBC 19.1 H Hgb 11.4 L Neutrophils % (Manual) 84 H Sodium 133 L BUN 55 H Creatinine 12.90 H Phosphorus 5.0 H Magnesium 2.4 SARS-CoV-2 RNA (CHRISTY) 04/10/20 18:25 WBC Hgb Neutrophils % (Manual) Sodium BUN Creatinine Phosphorus Magnesium SARS-CoV-2 RNA (CHRISTY) Not Detected Laboratory Tests 12/22/11 04/12/20 11:36 05:06 Hemoglobin A1c 6.8 H 6.0 Hospitalist ROS - Medication Medications: Active Medications Generic Name Dose Route Start Last Admin Trade Name Freq PRN Reason Stop Dose Admin Heparin Sodium (Porcine) 5,000 units 04/10/20 21:00 04/12/20 18:15 Heparin 5,000 Units/Ml Vial SC 5,000 units TID [facility] Administration Hydralazine HCl 25 mg 04/10/20 21:00 04/12/20 18:15 Hydralazine 25 Mg Tab PO 25 mg QID [facility]ARLENE Administration Cefepime HCl 1 gm/ Sodium 100 mls @ 200 mls/hr 04/11/20 02:00 04/12/20 13:35 Chloride IVPB 100 mls 0200,1400 [facility] Administration Insulin Human Lispro 0 units 04/11/20 19:47 04/12/20 18:15 Humalog 300 Units/3 Ml Vial SC 2 unit .MILD SLIDING SCALE PRN Administration Mild Correctional Scale Labetalol HCl 100 mg 04/10/20 21:00 04/12/20 08:10 Labetalol 100 Mg Tab PO 100 mg BID [facility] Administration Lisinopril 40 mg 04/11/20 09:00 04/12/20 13:38 Lisinopril 20 Mg Tab PO Not Given DAILY [facility] Sodium Chloride 10 ml 04/10/20 21:00 04/12/20 13:38 Flush - Normal Saline 10 Ml Syringe IVF Not Given Q12HR [facility] Hospitalist Exam Vitals: Vital Signs (12 hours) Temp Pulse Resp BP BP Pulse Ox 04/12/20 18:15 76 04/12/20 16:43 98.2 F 76 16 146/71 H 96 04/12/20 13:38 80 136/76 04/12/20 13:35 80 04/12/20 08:12 98.1 F 80 14 114/83 94 L 04/12/20 08:10 84 Weight Admit Weight 279 lb 15.792 oz Weight 279 lb 15.792 oz General Appearance: NAD, awake alert Eye: PERRL, anicteric sclera ENT: normocephalic atraumatic, no oropharyngeal lesions Neck: supple, symmetric, no JVD, no thyromegaly, no lymphadenopathy Heart: RRR, no gallops, no rubs, normal peripheral pulses Heart - other findings: S1, S2 Respiratory: CTAB, no wheezes, no rales, no ronchi, normal chest expansion, no tachypnea Gastrointestinal: soft, non-tender, non-distended, normal bowel sounds, no palpable masses Extremities: no cyanosis, no clubbing Extremities - other findings: R foot with great toe amputation/dressing in place Neurological: cranial nerve grossly intact, no new deficit Musculoskeletal: normal tone, normal strength, no muscle wasting Psychiatric: normal affect, A&O x 3 Hosp A/P (1) Osteomyelitis of great toe of right foot Code(s): M86.9 - OSTEOMYELITIS, UNSPECIFIED Status: Acute Plan: s/p amputation of R great toe, continue local WCT, elevate, pain control, await final pathology (2) Cellulitis and abscess of toe of right foot Code(s): L03.031 - CELLULITIS OF RIGHT TOE; L02.611 - CUTANEOUS ABSCESS OF RIGHT FOOT Status: Acute Plan: Continue Cefepime/Vancomycin (3) Diabetes mellitus type 2 in obese Code(s): E11.69 - TYPE 2 DIABETES MELLITUS WITH OTHER SPECIFIED COMPLICATION; E66.9 - OBESITY, UNSPECIFIED Status: Chronic (4) End stage renal disease on dialysis Code(s): N18.6 - END STAGE RENAL DISEASE; Z99.2 - DEPENDENCE ON RENAL DIALYSIS Status: Chronic Plan: HD per Renal service (5) HTN (hypertension) Code(s): I10 - ESSENTIAL (PRIMARY) HYPERTENSION Status: Chronic Qualifiers: Hypertension type: renovascular hypertension Qualified Code(s): I15.0 - Renovascular hypertension - Plan continue antibiotics, 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
[2020-04-12] MEDS: Carvedilol 3.125 MG TAB PO SCH (20:12)
--- NOTE | 2020-04-13 01:17 | OP ---
DATE OF PROCEDURE: 04/12/2020 PREOPERATIVE DIAGNOSIS: Right great toe infection. POSTOPERATIVE DIAGNOSIS: Right great toe infection. OPERATION PERFORMED: Ray amputation of right great toe. ANESTHESIA: Total intravenous anesthesia with a block placed per Anesthesia. INDICATION: The patient is a 55-year-old black male with end-stage renal disease, on hemodialysis. He has had previous amputation of his left great and 2nd toe. He presents today with a severe infection circumferentially involving the base of the right great toe. I recommend open ray amputation. DESCRIPTION OF OPERATION: Informed consent was obtained. The patient taken to the operating room, where total intravenous anesthesia obtained. A block was placed per Anesthesia. Right foot was prepped with ChloraPrep and draped in sterile fashion. An incision was created from the affected space in the interdigital space and including the ulcer on the medial aspect of the metatarsal head. Dissection was carried through skin and subcutaneous tissue. The tissue was frankly gangrenous on the entire lateral aspect in the interdigital space. Dissection was carried down to the MTP joint and the toe was disarticulated at this level and passed off the field. The head of the underlying metatarsal was debrided back using a rongeur. Hemostasis maintained with electrocautery. The nonviable tissue extended laterally toward the 2nd toe. This was all debrided again with rongeur. This extended somewhat under the proximal phalanx of the 2nd toe, but there was no exposed bone on the 2nd toe, so I decided not to proceed with a 2nd toe amputation. After all nonviable tissue had been debrided, the wound was carefully irrigated. It was then packed with dry gauze and dry gauze was placed between the toes. A circumferential Kerlix roll was placed along with a Coban dressing. There were no complications. Blood loss was negligible. The patient tolerated the procedure well. Wound VAC will be placed tomorrow. The patient will be informed that there is a very reasonable chance he will eventually require amputation of the 2nd toe as well. Job ID: [id number]
[2020-04-13] MEDS: Cefepime 1 GM in Sodium Chloride 0.9% 100 ML IVPB SCH ×2 (01:28→12:39)
[2020-04-13 05:59] LABS: Band 3 % (5-11); Hemoglobin 10.5 g/dL (14.0-18.0); Lymphocytes 6 % (21-51); MDiff Complete? YES; Mean Corpuscular HGB CONC 32.3 g/dL (32.0-36.0); Mean Corpuscular Hemoglobin 30.6 pg (27.0-31.0); Mean Corpuscular Volume 94.9 fL (78.0-98.0); Mean Platelet Volume 7.5 fL (7.4-10.4); Monocytes 9 % (0-10); Neutrophil 80 % (42-75); Platelet Count 383 thou/uL (130-400); Platelet Morphology Comment Appears Adequate; RBC Distribution Width 13.9 % (11.5-14.5); Red Blood Cell (RBC) Count 3.43 mill/uL (4.70-6.10)
[2020-04-13] MEDS: HumaLOG 300 UNITS/3 ML VIAL SC PRN ×2 (05:59→12:39)
[2020-04-13 06:01] LABS: Anion Gap 23 mmol/L (10-20); BUN (Urea Nitrogen) 63 mg/dL (8.4-25.7); Calc. Creatinine Clearance 11 mL/min (70-130); Calcium 9.1 mg/dL (7.8-10.44); Carbon Dioxide 22 mmol/L (22-29); Chloride 93 mmol/L (98-107); Glucose 182 mg/dL (70-105); Potassium 3.6 mmol/L (3.5-5.1); Sodium 134 mmol/L (136-145)
[2020-04-13] MEDS: hydrALAZINE 25 MG TAB PO SCH ×4 (08:53→20:00)
[2020-04-13] MEDS: Heparin 5,000 UNITS/ML VIAL SC SCH ×3 (08:53→20:00)
[2020-04-13] MEDS: Carvedilol 3.125 MG TAB PO SCH ×2 (08:53→20:00)
[2020-04-13] MEDS: Labetalol 100 MG TAB PO SCH ×2 (08:54→20:00)
[2020-04-13] MEDS: Lisinopril 20 MG TAB PO SCH (08:54)
--- NOTE | 2020-04-13 09:54 | PRG ---
DATE OF SERVICE: 04/13/2020 SUBJECTIVE: A 55-year-old male being seen for end-stage renal disease. The patient denied any nausea, vomiting, or chest pain. OBJECTIVE: GENERAL: The patient is awake and alert. VITAL SIGNS: Afebrile, pulse 77, breathing at 16, blood pressure 158/73. HEENT: Head normocephalic and atraumatic. Eyes intact, no ulcers. Nose intact, no ulcers. Ears intact, no ulcers. NECK: Supple. No JVD. CHEST: Symmetrical and clear. CARDIOVASCULAR: Shows S1 and S2, no rub, no murmur. GASTROINTESTINAL: Abdomen is soft, bowel sounds positive. EXTREMITIES: Show no edema or ulcers. SKIN: Shows no rash or petechiae. MUSCULOSKELETAL: Shows no joint swelling or stiffness. GENITOURINARY: Shows no Madsen or CVA tenderness. NEUROLOGIC: Motor intact. Cranial nerves intact. LABORATORY DATA: Reviewed. ASSESSMENT AND PLAN: 1. Chronic kidney disease, stage 6, stable. 2. Hypertension, stable. 3. Anemia, stable. 4. Medication based on GFR, appropriate. Job ID: [id number]
--- NOTE | 2020-04-13 16:19 | PRG ---
DATE OF SERVICE: 04/13/2020 SUBJECTIVE: Mr. Kelley is postoperative day #1 from right great toe ray amputation. He is seen today while he is in hemodialysis. The wound VAC has already been placed on his right foot. He has no complaints and notes minimal discomfort. PHYSICAL EXAMINATION: VITAL SIGNS: He is afebrile with a pulse of 74, blood pressure is 173/76. EXTREMITIES: Dressing is intact on his right foot. LABORATORY DATA: His white blood cell count has gone from 18 down to 14 and hemoglobin stable at 10.5. The culture shows Enterobacter and Staphylococcus. They were certain to be anaerobic organisms as well. ASSESSMENT: He is stable following toe amputation. Since a VAC was placed today, it will be changed in 48 hours. I will see the wound at that time. Hopefully, a home wound VAC can be arranged during that time, and if I checked the wound on Saturday and it looks good, then he would be stable for discharge home at that time. Continue IV antibiotics while he is here in the hospital. Job ID: [id number]
--- NOTE | 2020-04-13 17:33 | PDOC.HOSPP ---
- Subjective Encounter Date: 04/13/20 Encounter Time: 16:35 Subjective: f/u for R great toe amputation due to osteomyelitis/DM toe ulcer POD #1. No new complaints. Wound vac placed. - Objective Vital Signs & Weight: Vital Signs (12 hours) Temp Pulse Resp BP Pulse Ox 04/13/20 12:39 74 04/13/20 12:00 96 04/13/20 11:49 97.9 F 74 16 163/76 H 96 04/13/20 08:54 78 04/13/20 08:53 78 04/13/20 08:00 95 04/13/20 07:45 98.2 F 78 16 167/76 H 95 Weight Admit Weight 279 lb 15.792 oz Weight 279 lb 15.792 oz I&O: 04/12/20 04/13/20 04/14/20 06:59 06:59 06:59 Intake Total 480 Balance 480 Result Diagrams: 04/13/20 05:14 04/13/20 05:14 Additional Labs: Accuchecks 04/13/20 04/13/20 04/12/20 10:58 05:20 19:54 POC Glucose 289 H 179 H 161 H Microbiology 04/10/20 14:46 Foot - Pending Bacterial Culture - Preliminary Gram Negative Chivo 04/10/20 13:48 Venous blood - Right Hand Blood Culture - Preliminary Specimen has been received and culture in progress. No Growth to date. 04/10/20 13:32 Venous blood - Right Arm Blood Culture - Preliminary Specimen has been received and culture in progress. No Growth to date. Laboratory Tests 12/22/11 04/10/20 04/10/20 11:36 13:32 13:32 WBC 19.1 H Hgb 11.4 L Neutrophils % (Manual) 84 H Sodium 133 L BUN 55 H Creatinine 12.90 H Hemoglobin A1c 6.8 H Phosphorus Magnesium SARS-CoV-2 RNA (CHRISTY) 04/10/20 04/10/20 04/12/20 13:32 18:25 05:06 WBC Hgb Neutrophils % (Manual) Sodium BUN Creatinine Hemoglobin A1c 6.0 Phosphorus 5.0 H Magnesium 2.4 SARS-CoV-2 RNA (CHRISTY) Not Detected Microbiology 04/10/20 14:46 Foot - Pending Bacterial Culture - Preliminary Gram Negative Chivo 04/10/20 14:46 Foot - Pending Bacterial Culture - Preliminary Enterobacter amnigenus 2 Staphylococcus aureus Hospitalist ROS - Medication Medications: Active Medications Generic Name Dose Route Start Last Admin Trade Name Freq PRN Reason Stop Dose Admin Carvedilol 3.125 mg 04/12/20 21:00 04/13/20 08:53 Carvedilol 3.125 Mg Tab PO 3.125 mg BID [facility] Administration Heparin Sodium (Porcine) 5,000 units 04/10/20 21:00 04/13/20 15:51 Heparin 5,000 Units/Ml Vial SC Not Given TID [facility] Hydralazine HCl 25 mg 04/10/20 21:00 04/13/20 12:39 Hydralazine 25 Mg Tab PO 25 mg QID [facility] Administration Cefepime HCl 1 gm/ Sodium 100 mls @ 200 mls/hr 04/11/20 02:00 04/13/20 12:39 Chloride IVPB 100 mls 0200,1400 [facility] Administration Insulin Human Lispro 0 units 04/11/20 19:47 04/13/20 12:39 Humalog 300 Units/3 Ml Vial SC 4 unit .MILD SLIDING SCALE PRN Administration Mild Correctional Scale Labetalol HCl 100 mg 04/10/20 21:00 04/13/20 08:54 Labetalol 100 Mg Tab PO 100 mg BID [facility] Administration Lisinopril 40 mg 04/11/20 09:00 04/13/20 08:54 Lisinopril 20 Mg Tab PO 40 mg DAILY [facility] Administration Sodium Chloride 10 ml 04/10/20 21:00 04/13/20 08:54 Flush - Normal Saline 10 Ml Syringe IVF 10 ml Q12HR [facility] Administration Hospitalist Exam Vitals: Vital Signs (12 hours) Temp Pulse Resp BP Pulse Ox 04/13/20 12:39 74 04/13/20 12:00 96 04/13/20 11:49 97.9 F 74 16 163/76 H 96 04/13/20 08:54 78 04/13/20 08:53 78 04/13/20 08:00 95 04/13/20 07:45 98.2 F 78 16 167/76 H 95 Weight Admit Weight 279 lb 15.792 oz Weight 279 lb 15.792 oz General Appearance: NAD, awake alert Eye: PERRL, anicteric sclera ENT: normocephalic atraumatic, no oropharyngeal lesions Neck: supple, symmetric, no JVD, no thyromegaly, no lymphadenopathy Heart: RRR, no murmur, no gallops, no rubs, normal peripheral pulses Heart - other findings: S1, S2 Respiratory: CTAB, no wheezes, no rales, no ronchi, normal chest expansion, no tachypnea Gastrointestinal: soft, non-tender, non-distended, normal bowel sounds, no palpable masses Extremities: no cyanosis Extremities - other findings: R foot with great toe amputation/wound vac in place Skin: normal turgor Neurological: cranial nerve grossly intact, no new deficit Musculoskeletal: normal tone, generalized weakness Psychiatric: normal affect, A&O x 3 Hosp A/P (1) Osteomyelitis of great toe of right foot Code(s): M86.9 - OSTEOMYELITIS, UNSPECIFIED Status: Acute Plan: s/p R great toe ray amputation POD #1, continue wound vac, local care with WCT, continue IV abx (2) Cellulitis and abscess of toe of right foot Code(s): L03.031 - CELLULITIS OF RIGHT TOE; L02.611 - CUTANEOUS ABSCESS OF RIGHT FOOT Status: Acute (3) Diabetes mellitus type 2 in obese Code(s): E11.69 - TYPE 2 DIABETES MELLITUS WITH OTHER SPECIFIED COMPLICATION; E66.9 - OBESITY, UNSPECIFIED Status: Chronic (4) End stage renal disease on dialysis Code(s): N18.6 - END STAGE RENAL DISEASE; Z99.2 - DEPENDENCE ON RENAL DIALYSIS Status: Chronic Plan: HD per Renal service (5) HTN (hypertension) Code(s): I10 - ESSENTIAL (PRIMARY) HYPERTENSION Status: Chronic Qualifiers: Hypertension type: renovascular hypertension Qualified Code(s): I15.0 - Renovascular hypertension - Plan continue antibiotics, social insurance specialist, out of bed/ambulate, DVT proph w/SCDs Stable currently Continue Cefepime/Vancomycin WCT for local care Wound vac placement Pain control as clinically indicated ISS, serial accuchecks Resume ADA AM lab: BMP, CBC
[2020-04-14] MEDS: Cefepime 1 GM in Sodium Chloride 0.9% 100 ML IVPB SCH ×2 (01:18→12:58)
[2020-04-14 05:54] LABS: #Eosinphils 0.5 thou/uL (0.0-0.7); #Lymphocytes 1.8 thou/uL (1.20-3.40); #Monocytes 1.3 thou/uL (0.11-0.59); #Neutrophils 10.5 thou/uL (1.40-6.50); %Basophils 0.3 % (0.0-1.0); %Eosinophils 3.2 % (0.0-10.0); %Lymphocytes 12.7 % (21.0-51.0); %Monocytes 9.5 % (0.0-10.0); %Neutrophils 74.3 % (42.0-75.0); Hemoglobin 10.9 g/dL (14.0-18.0); Mean Corpuscular HGB CONC 32.5 g/dL (32.0-36.0); Mean Corpuscular Hemoglobin 30.8 pg (27.0-31.0); Mean Corpuscular Volume 94.9 fL (78.0-98.0); Mean Platelet Volume 7.6 fL (7.4-10.4); Platelet Count 410 thou/uL (130-400); RBC Distribution Width 13.9 % (11.5-14.5); Red Blood Cell (RBC) Count 3.54 mill/uL (4.70-6.10); White Blood Cell (WBC) Count 14.1 thou/uL (4.8-10.8)
[2020-04-14 06:21] LABS: Anion Gap 19 mmol/L (10-20); BUN (Urea Nitrogen) 34 mg/dL (8.4-25.7); Calc. Creatinine Clearance 16 mL/min (70-130); Calcium 9.3 mg/dL (7.8-10.44); Carbon Dioxide 24 mmol/L (22-29); Chloride 95 mmol/L (98-107); Glucose 156 mg/dL (70-105); Sodium 134 mmol/L (136-145)
[2020-04-14 09:06] LABS: Vancomycin, Random 12.8 ug/mL (See Comment)
[2020-04-14] MEDS: Heparin 5,000 UNITS/ML VIAL SC SCH ×3 (09:54→19:39)
[2020-04-14] MEDS: Carvedilol 3.125 MG TAB PO SCH ×2 (09:54→19:39)
[2020-04-14] MEDS: Lisinopril 20 MG TAB PO SCH (09:54)
[2020-04-14] MEDS: hydrALAZINE 25 MG TAB PO SCH ×4 (09:54→19:39)
[2020-04-14] MEDS: Labetalol 100 MG TAB PO SCH ×2 (09:55→19:39)
--- NOTE | 2020-04-14 12:54 | PDOC.HOSPP ---
- Subjective Encounter Date: 04/14/20 Encounter Time: 12:00 Subjective: f/u s/p R Great toe amputation due to osteomylelitis/DM ulcer. Wound vac in place without any drainage. Minimal pain. - Objective Vital Signs & Weight: Vital Signs (12 hours) Temp Pulse Resp BP BP Pulse Ox 04/14/20 12:00 97 04/14/20 11:30 99.0 F 79 18 117/64 97 04/14/20 09:55 79 04/14/20 09:54 79 140/76 04/14/20 08:00 96 04/14/20 07:36 99.0 F 79 18 133/77 96 04/14/20 03:29 98.6 F 81 16 130/61 96 Weight Admit Weight 279 lb 15.792 oz Weight 279 lb 15.792 oz I&O: 04/13/20 04/14/20 04/15/20 06:59 06:59 06:59 Intake Total 480 720 Output Total 3800 Balance 480 -3080 Result Diagrams: 04/14/20 05:35 04/14/20 05:35 Additional Labs: Accuchecks 04/14/20 04/13/20 04/13/20 05:56 21:00 18:07 POC Glucose 152 H 212 H 93 Microbiology 04/10/20 14:46 Foot - Pending Bacterial Culture - Preliminary Gram Negative Chivo 04/10/20 14:46 Foot - Pending Bacterial Culture - Preliminary Enterobacter amnigenus 2 Staphylococcus aureus 04/10/20 13:48 Venous blood - Right Hand Blood Culture - Preliminary Specimen has been received and culture in progress. No Growth to date. 04/10/20 13:32 Venous blood - Right Arm Blood Culture - Preliminary Specimen has been received and culture in progress. No Growth to date. Laboratory Tests 12/22/11 04/10/20 04/10/20 11:36 13:32 13:32 WBC 19.1 H Hgb 11.4 L Neutrophils % (Manual) 84 H Sodium 133 L BUN 55 H Creatinine 12.90 H Hemoglobin A1c 6.8 H Phosphorus Magnesium SARS-CoV-2 RNA ([facility]STY) 04/10/20 04/10/20 04/12/20 13:32 18:25 05:06 WBC Hgb Neutrophils % (Manual) Sodium BUN Creatinine Hemoglobin A1c 6.0 Phosphorus 5.0 H Magnesium 2.4 SARS-CoV-2 RNA ([facility]STY) Not Detected Hospitalist ROS - Medication Medications: Active Medications Generic Name Dose Route Start Last Admin Trade Name Freq PRN Reason Stop Dose Admin Carvedilol 3.125 mg 04/12/20 21:00 04/14/20 09:54 Carvedilol 3.125 Mg Tab PO 3.125 mg BID [facility] Administration Heparin Sodium (Porcine) 5,000 units 04/10/20 21:00 04/14/20 09:54 Heparin 5,000 Units/Ml Vial SC 5,000 units TID [facility] Administration Hydralazine HCl 25 mg 04/10/20 21:00 04/14/20 09:54 Hydralazine 25 Mg Tab PO 25 mg QID [facility] Administration Cefepime HCl 1 gm/ Sodium 100 mls @ 200 mls/hr 04/11/20 02:00 04/14/20 01:18 Chloride IVPB 100 mls 0200,1400 [facility] Administration Insulin Human Lispro 0 units 04/11/20 19:47 04/13/20 12:39 Humalog 300 Units/3 Ml Vial SC 4 unit .MILD SLIDING SCALE PRN Administration Mild Correctional Scale Labetalol HCl 100 mg 04/10/20 21:00 04/14/20 09:55 Labetalol 100 Mg Tab PO 100 mg BID [facility] Administration Lisinopril 40 mg 04/11/20 09:00 04/14/20 09:54 Lisinopril 20 Mg Tab PO 40 mg DAILY [facility] Administration Sodium Chloride 10 ml 04/10/20 21:00 04/14/20 09:55 Flush - Normal Saline 10 Ml Syringe IVF 10 ml Q12HR [facility] Administration Hospitalist Exam Vitals: Vital Signs (12 hours) Temp Pulse Resp BP BP Pulse Ox 04/14/20 12:00 97 04/14/20 11:30 99.0 F 79 18 117/64 97 04/14/20 09:55 79 04/14/20 09:54 79 140/76 04/14/20 08:00 96 04/14/20 07:36 99.0 F 79 18 133/77 96 04/14/20 03:29 98.6 F 81 16 130/61 96 Weight Admit Weight 279 lb 15.792 oz Weight 279 lb 15.792 oz General Appearance: NAD, awake alert Eye: PERRL, anicteric sclera ENT: normocephalic atraumatic, no oropharyngeal lesions Heart: RRR, no gallops, no rubs, normal peripheral pulses Heart - other findings: S1, S2 Respiratory: CTAB, no wheezes, no rales, no ronchi, normal chest expansion Gastrointestinal: soft, non-tender, non-distended, normal bowel sounds, no palpable masses Extremities - other findings: R foot with wound vac in place Skin: normal turgor Neurological: cranial nerve grossly intact, no new deficit Musculoskeletal: normal tone, normal strength, no muscle wasting Psychiatric: normal affect, A&O x 3 Hosp A/P (1) Osteomyelitis of great toe of right foot Code(s): M86.9 - OSTEOMYELITIS, UNSPECIFIED Status: Acute Plan: s/p R great toe amputation, wound vac in place, ? need for home vac, WCT (2) Cellulitis and abscess of toe of right foot Code(s): L03.031 - CELLULITIS OF RIGHT TOE; L02.611 - CUTANEOUS ABSCESS OF RIGHT FOOT Status: Acute Plan: Continue Cefepime/Vancomycin (3) Diabetes mellitus type 2 in obese Code(s): E11.69 - TYPE 2 DIABETES MELLITUS WITH OTHER SPECIFIED COMPLICATION; E66.9 - OBESITY, UNSPECIFIED Status: Chronic (4) End stage renal disease on dialysis Code(s): N18.6 - END STAGE RENAL DISEASE; Z99.2 - DEPENDENCE ON RENAL DIALYSIS Status: Chronic Plan: HD per Renal service (5) HTN (hypertension) Code(s): I10 - ESSENTIAL (PRIMARY) HYPERTENSION Status: Chronic Qualifiers: Hypertension type: renovascular hypertension Qualified Code(s): I15.0 - Renovascular hypertension - Plan continue antibiotics, 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
[2020-04-14] MEDS: HumaLOG 300 UNITS/3 ML VIAL SC PRN (13:00)
--- NOTE | 2020-04-14 15:07 | PRG ---
DATE OF SERVICE: 04/14/2020 SUBJECTIVE: A 55-year-old gentleman, being seen for end-stage renal disease. The patient denied nausea, vomiting, or chest pain. PHYSICAL EXAMINATION: GENERAL: The patient is awake and alert. VITAL SIGNS: Afebrile, pulse 79, breathing at 16, blood pressure 117/64. HEENT: Head normocephalic and atraumatic. Eyes intact, no ulcers. Nose intact, no ulcers. Ears intact, no ulcers. NECK: Supple. No JVD. CHEST: Symmetrical and clear. CARDIOVASCULAR: Shows S1 and S2, no rub, no murmur. GASTROINTESTINAL: Abdomen is soft, bowel sounds positive. EXTREMITIES: Show no edema or ulcers. SKIN: Shows no rash or petechiae. MUSCULOSKELETAL: Shows no joint swelling or stiffness. GENITOURINARY: Shows no Madsen or CVA tenderness. NEUROLOGIC: Motor intact. Cranial nerves intact. DIAGNOSTIC STUDIES: Labs show hemoglobin 10.9. ASSESSMENT AND PLAN: 1. Stage 6 chronic kidney disease, plan dialysis. 2. Hypertension, stable. 3. Anemia, stable. Medication based on GFR appropriate. Job ID: [id number]
[2020-04-15] MEDS: Cefepime 1 GM in Sodium Chloride 0.9% 100 ML IVPB SCH ×2 (01:10→18:45)
[2020-04-15 06:06] LABS: Anion Gap 20 mmol/L (10-20); BUN (Urea Nitrogen) 59 mg/dL (8.4-25.7); Calc. Creatinine Clearance 12 mL/min (70-130); Calcium 9.4 mg/dL (7.8-10.44); Carbon Dioxide 24 mmol/L (22-29); Chloride 97 mmol/L (98-107); Glucose 147 mg/dL (70-105); Potassium 4.1 mmol/L (3.5-5.1); Sodium 137 mmol/L (136-145)
[2020-04-15] MEDS: hydrALAZINE 25 MG TAB PO SCH ×3 (09:19→18:49)
[2020-04-15] MEDS: Lisinopril 20 MG TAB PO SCH (09:19)
[2020-04-15] MEDS: Heparin 5,000 UNITS/ML VIAL SC SCH ×2 (09:20→14:40)
[2020-04-15] MEDS: Labetalol 100 MG TAB PO SCH (09:20)
[2020-04-15] MEDS: Carvedilol 3.125 MG TAB PO SCH (09:20)
--- NOTE | 2020-04-15 10:23 | PRG ---
DATE OF SERVICE: 04/15/2020 SUBJECTIVE: A 55-year-old gentleman being seen for end-stage renal disease. The patient denied nausea, vomiting, or chest pain. OBJECTIVE: GENERAL: The patient is awake and alert. VITAL SIGNS: Pulse 75, breathing 16, blood pressure 139/75. HEENT: Head normocephalic and atraumatic. Eyes intact, no ulcers. Nose intact, no ulcers. Ears intact, no ulcers. NECK: Supple. No JVD. CHEST: Symmetrical and clear. CARDIOVASCULAR: Shows S1 and S2, no rub, no murmur. GASTROINTESTINAL: Abdomen is soft, bowel sounds positive. EXTREMITIES: Show no edema or ulcers. SKIN: Shows no rash or petechiae. MUSCULOSKELETAL: Shows no joint swelling or stiffness. GENITOURINARY: Shows no Madsen or CVA tenderness. NEUROLOGIC: Motor intact. Cranial nerves intact. DIAGNOSTIC STUDIES: Labs show hemoglobin 10.9. ASSESSMENT AND PLAN: 1. Stage 6 chronic kidney disease, plan dialysis. 2. Hypertension, stable. 3. Anemia, stable. Medication based on GFR appropriate. Job ID: [id number]
--- NOTE | 2020-04-15 15:19 | PRG ---
DATE OF SERVICE: 04/15/2020 SUBJECTIVE: Mr. Kelley is postoperative day #3 from right great toe ray amputation. His wound VAC is being changed today and I examined the wound with the Wound Care team. He denies any significant pain or discomfort. He is ambulating with heel weightbearing only. OBJECTIVE: VITAL SIGNS: He is afebrile. Vital signs within normal limits. EXTREMITIES: Examination is focused upon his right foot. The wound has reasonable appropriate granulation tissue, at this point out from surgery. Some of the surrounding superficial skin layers are sloughing along with the resolution of his edema. There is minimal focal tenderness. There is no obvious necrosis or purulence within the wound. LABORATORY DATA: His white blood cell count from yesterday was still 14 with a hemoglobin of 10.9. Labs were not obtained today. His creatinine is 12.5. The final culture results have shown Enterobacter and Staphylococcus. I am uncertain if there is still an anaerobic culture pending or not. ASSESSMENT AND PLAN: The patient is stable following toe amputation. The wound appears to be healing appropriately. He is cleared for discharge from a Surgery standpoint. A home wound VAC has already been approved and arranged as has home health nursing. I will see him back in 2 weeks. Home health nursing should perform the VAC dressing changes 3 times a week per usual protocol. Job ID: [id number]
--- NOTE | 2020-04-15 16:14 | PDOC.HOSPP ---
- Subjective Encounter Date: 04/15/20 Encounter Time: 16:10 Subjective: f/u for COVID PNA/Resp failure on mech vent/ESRD on HD/A-fib RVR. Nursing reports hypotensive after HD today but holding with SBP in 90's. Remains on low- dose Amiodarone/ - Objective Vital Signs & Weight: Vital Signs (12 hours) Temp Pulse Resp BP Pulse Ox 04/15/20 15:26 98.6 F 98 16 112/70 98 04/15/20 07:05 98.2 F 78 14 139/75 97 Weight Admit Weight 279 lb 15.792 oz Weight 279 lb 15.792 oz I&O: 04/14/20 04/15/20 04/16/20 06:59 06:59 06:59 Intake Total 720 1320 Output Total 3800 0 Balance -3080 1320 Result Diagrams: 04/14/20 05:35 04/15/20 05:22 Additional Labs: Accuchecks 04/15/20 04/14/20 04/14/20 15:25 19:52 15:51 POC Glucose 136 H 176 H 145 H Hospitalist ROS - Medication Medications: Active Medications Generic Name Dose Route Start Last Admin Trade Name Freq PRN Reason Stop Dose Admin Hydrocodone Bitart/Acetaminophen 2 tab 04/12/20 12:11 04/15/20 14:40 Hydrocodone/Acetaminophen 7.5/325 Mg Tablet PO 2 tab Q4H PRN Administration Moderate Pain (4-6) Carvedilol 3.125 mg 04/12/20 21:00 04/15/20 09:20 Carvedilol 3.125 Mg Tab PO 3.125 mg BID DARLENE Administration Heparin Sodium (Porcine) 5,000 units 04/10/20 21:00 04/15/20 14:40 Heparin 5,000 Units/Ml Vial SC 5,000 units TID DARLENE Administration Hydralazine HCl 25 mg 04/10/20 21:00 04/15/20 14:39 Hydralazine 25 Mg Tab PO 25 mg QID DARLENE Administration Cefepime HCl 1 gm/ Sodium 100 mls @ 200 mls/hr 04/11/20 02:00 04/15/20 01:10 Chloride IVPB 100 mls 0200,1400 DARLENE Administration Insulin Human Lispro 0 units 04/11/20 19:47 04/14/20 13:00 Humalog 300 Units/3 Ml Vial SC 2 unit .MILD SLIDING SCALE PRN Administration Mild Correctional Scale Labetalol HCl 100 mg 04/10/20 21:00 04/15/20 09:20 Labetalol 100 Mg Tab PO 100 mg BID DARLENE Administration Lisinopril 40 mg 04/11/20 09:00 04/15/20 09:19 Lisinopril 20 Mg Tab PO 40 mg DAILY DARLENE Administration Sodium Chloride 10 ml 04/10/20 21:00 04/15/20 11:19 Flush - Normal Saline 10 Ml Syringe IVF Not Given Q12HR [facility] Hospitalist Exam Vitals: Vital Signs (12 hours) Temp Pulse Resp BP Pulse Ox 04/15/20 15:26 98.6 F 98 16 112/70 98 04/15/20 07:05 98.2 F 78 14 139/75 97 Weight Admit Weight 279 lb 15.792 oz Weight 279 lb 15.792 oz Hosp A/P (1) Osteomyelitis of great toe of right foot Code(s): M86.9 - OSTEOMYELITIS, UNSPECIFIED Status: Acute (2) Cellulitis and abscess of toe of right foot Code(s): L03.031 - CELLULITIS OF RIGHT TOE; L02.611 - CUTANEOUS ABSCESS OF RIGHT FOOT Status: Acute (3) Diabetes mellitus type 2 in obese Code(s): E11.69 - TYPE 2 DIABETES MELLITUS WITH OTHER SPECIFIED COMPLICATION; E66.9 - OBESITY, UNSPECIFIED Status: Chronic (4) End stage renal disease on dialysis Code(s): N18.6 - END STAGE RENAL DISEASE; Z99.2 - DEPENDENCE ON RENAL DIALYSIS Status: Chronic (5) HTN (hypertension) Code(s): I10 - ESSENTIAL (PRIMARY) HYPERTENSION Status: Chronic Qualifiers: Hypertension type: renovascular hypertension Qualified Code(s): I15.0 - Renovascular hypertension - Plan Stable currently Continue Cefepime/Vancomycin WCT for local care Wound vac placement, plan for exchange in am Pain control as clinically indicated ISS, serial accuchecks Resume ADA AM lab: BMP
[2020-04-15 19:49] VITALS: BP 121/77; TEMP 97.5
--- NOTE | 2020-04-15 21:23 | DIS ---
DATE OF ADMISSION: 04/10/2020 DATE OF DISCHARGE: 04/15/2020 DISCHARGE DIAGNOSES: 1. Osteomyelitis of the right great toe. 2. Abscess of the right great toe/diabetic foot ulceration. 3. Diabetes mellitus, type 2 with peripheral neuropathy and diabetic nephropathy. 4. End-stage renal disease with hemodialysis. 5. Hypertension. CONSULTATIONS: 1. Dr. Pierre with Nephrology Service. 2. Dr. Mitchell with General Surgery Service. PERTINENT LABORATORY AND X-RAY FINDINGS: Creatinine ranged between 9.83 to 14.63. Hemoglobin A1c of 6.0. Lactic acid level 1.4. Phosphorus 5.0, magnesium level 2.4. CBC showed a white blood cell count ranging between 14.0 to 19.1, hemoglobin ranged between 10.3 to 11.4. COVID-19 PCR not detected on 04/10/2020. Blood cultures x2 dated 04/10/2020 showed no growth at 48 hours. Right foot wound culture dated 04/10/2020, showed Enterobacter amnigenus 2 and Staphylococcus aureus. Three views of the right foot dated 04/10/2020, showed destructive changes at the proximal phalanx of the right great toe. Soft tissue edema with soft tissue gas noted at the proximal area of the great toe. Right great toe pathological sample dated 04/12/2020, showed ischemic ulceration consistent with gangrene. HOSPITAL COURSE: The patient was initially admitted after presenting with abscess and diabetic ulceration of the right great toe in the context of diabetes mellitus and end-stage renal disease. The patient underwent general evaluation in the emergency room including plain radiographs showing soft tissue gas in the proximal aspect of the right great toe. The patient initially had approximately 20 mL of purulent drainage from the region in the emergency room, prompting a General Surgery evaluation of the toe and foot. The patient was taken for primary amputation of the right great toe on 04/12/2020. Wound VAC application was given postoperatively. The patient remained on IV cefepime and vancomycin throughout the hospital course. The patient clinically improved with surgical resection of the right great toe with plans for outpatient management including wound VAC and wound care. I have examined the patient at the time of discharge and discussed followup instructions. The patient verbalized understanding and in agreement and ready for discharge on 04/15/2020. DISCHARGE MEDICATIONS: 1. Augmentin 500 mg one tablet p.o. b.i.d. x7 days. 2. Hydralazine 100 mg p.o. t.i.d. 3. Carvedilol 3.125 mg p.o. b.i.d. 4. Lisinopril 40 mg p.o. daily. 5. p.o. b.i.d. FOLLOWUP: The patient may follow up with Dr. Mitchell with General Surgery Service 2 weeks after discharge. The patient may follow up with Dr. Garo Bran with Podiatry Service. The patient may follow up with Dr. Lakhwinder Pierre for maintenance hemodialysis. CONDITION ON DISCHARGE: Fair. ACTIVITY: [place]. DIET: ADA and heart healthy. CODE STATUS: Full. SPECIAL INSTRUCTIONS: Wound VAC application per General Surgery recommendations. DISPOSITION: Home on 04/15/2020. TIME SPENT: Total time preparing and coordinating discharge, 33 minutes. Job ID: [id number]
--- NOTE | 2020-04-18 07:02 | PQF ---
CLINICAL DOCUMENTATION CLARIFICATION FORM: Dear : Antolin Gillespie Date / Time: 04/18/20 07:02 Please exercise your independent, professional judgment in responding to the clarification form. Clinical indicators are provided on the bottom of this form for your review Please check appropriate box(es): [ ] Sepsis [ x ] Localized infection without sepsis [ ] Other diagnosis, please specify [ ] Unable to determine Physician Signature: Date/Time: For continuity of documentation, please document condition throughout progress notes and discharge summary. Thank You. To be completed by CDI/Coding staff for physician review: Present Clinical Indicators - Signs / Symptoms / Labs Results and Location in Medical Record [x] Sepsis HP 04/10 [x] Cellulitis and abscess of foot HP 04/10 [x] OM foot PN 04/11 [x] Temp=99.3 Pulse=95 CL=689/82 Respi=16 Vital Sign 04/10 [x] WBC: 04/10=19.1 04/12=18.3 04/14=14.1 Laboratory 04/10 [x] Lactic: 04/10=1.4 Laboratory 04/10 [x] Blood culture: no growth Laboratory 04/10 Present Risk Factors Results and Location in Medical Record [x] ESRD HP 04/10 [x] Obesity HP 04/10 [x] DM HP 04/10 [x] Cellulitis and abscess of foot HP 04/10 [x] OM foot PN 04/11 Present Treatments Results and Location in Medical Record [x] Sepsis protocol initiated HP 04/10 [x] Debridement Consult 04/11 [x] Vancomycin 1gm IV MAY 16 [x] Cefepime 2gm IV MAY 16 [x] IVF MAY 16 [x] Amputation OP Note 04/13 CDS/Breadman Signature: Mitali Dillon Phone #: ext [phone] Date/Time: 04/18/20 This is a permanent part of the Medical Record [facility]
== END 2020-04-15 19:25 | disposition home or self-care (01) | DRG 617 ==
LOC: ERS 12:42 → SJJU 16:38
PROVIDERS: ADMIT Internal Medicine; ATTEND Family Medicine
PROC: 5A1D70Z Performance of Urinary Filtration, Intermittent, Less than 6 Hours Per Day (ICD-10-PCS; 2020-04-11)
PROC: 0JBQ0ZZ Excision of Right Foot Subcutaneous Tissue and Fascia, Open Approach (ICD-10-PCS; 2020-04-11)
PROC: 0Y6P0Z0 Detachment at Right 1st Toe, Complete, Open Approach (ICD-10-PCS; principal; 2020-04-12)
DX: E11.621 Type 2 diabetes mellitus with foot ulcer (principal); L02.611 Cutaneous abscess of right foot; E11.52 Type 2 diabetes mellitus with diabetic peripheral angiopathy with gangrene; I96 Gangrene, not elsewhere classified; E87.1 Hypo-osmolality and hyponatremia; M86.8X7 Other osteomyelitis, ankle and foot; I12.0 Hypertensive chronic kidney disease with stage 5 chronic kidney disease or end stage renal disease; N18.6 End stage renal disease; Z20.822 Contact with and (suspected) exposure to COVID-19; L03.031 Cellulitis of right toe; E11.22 Type 2 diabetes mellitus with diabetic chronic kidney disease; E66.9 Obesity, unspecified; D63.1 Anemia in chronic kidney disease; E11.69 Type 2 diabetes mellitus with other specified complication; L97.519 Non-pressure chronic ulcer of other part of right foot with unspecified severity; B95.8 Unspecified staphylococcus as the cause of diseases classified elsewhere; B96.89 Other specified bacterial agents as the cause of diseases classified elsewhere; Z99.2 Dependence on renal dialysis; Z68.38 Body mass index [BMI] 38.0-38.9, adult; Z89.412 Acquired absence of left great toe
CPT/HCPCS: 10060; 36415; 36416; 80048; 80053; 80202; 83036; 83605; 83735; 84100; 85025; 87040; 87070; 87077; 87186; 87205; 87635; 88305; 88311; 90471; 90715; 90935; 96365; 96366; 96367; G0257; J0692; J1644; J2001; J2405; J2704; J3370; J3490; Q0161; U0003; U0005

== ENCOUNTER 2020-04-23 18:28 | Inpatient (IN) | payer MEDICARE ==
[~2020-04-23 18:28] MED LIST: Iopamidol-370 76% 500 ML 1 ML ONE
[2020-04-23] MEDS ORDERED: Morphine 4 MG/ML VIAL ONE (19:09)
--- NOTE | 2020-04-23 19:10 | RAD ---
RADIOGRAPH CHEST 1 VIEW: DATE: 04/23/2020 HISTORY: 55-year-old male with chest pain FINDINGS: There are no airspace densities, pulmonary edema, pneumothorax, or cardiomegaly. The lateral costophr enic angles are sharp. IMPRESSION: No acute cardiopulmonary findings.
--- NOTE | 2020-04-23 19:12 | RAD ---
Radiograph right shoulder 3 views: HISTORY: 55-year-old male with nontraumatic right shoulder pain FINDINGS: No fracture or dislocation. Moderate DJD at AC joint. No major pathology of glenohumeral joint. No ro tator cuff calcifications. No destructive osseous lesion. IMPRESSION: Osteoarthrosis of acromioclavicular joint.
[2020-04-23 19:40] LABS: #Eosinphils 0.3 thou/uL (0.0-0.7); #Lymphocytes 1.6 thou/uL (1.20-3.40); #Monocytes 0.7 thou/uL (0.11-0.59); #Neutrophils 5.7 thou/uL (1.40-6.50); %Basophils 0.2 % (0.0-1.0); %Eosinophils 4.2 % (0.0-10.0); %Lymphocytes 18.8 % (21.0-51.0); %Monocytes 8.4 % (0.0-10.0); %Neutrophils 68.4 % (42.0-75.0); Hemoglobin 10.3 g/dL (14.0-18.0); Mean Corpuscular HGB CONC 31.2 g/dL (32.0-36.0); Mean Corpuscular Hemoglobin 29.7 pg (27.0-31.0); Mean Corpuscular Volume 95.2 fL (78.0-98.0); Mean Platelet Volume 7.1 fL (7.4-10.4); Platelet Count 405 thou/uL (130-400); RBC Distribution Width 14.2 % (11.5-14.5); Red Blood Cell (RBC) Count 3.46 mill/uL (4.70-6.10); White Blood Cell (WBC) Count 8.3 thou/uL (4.8-10.8)
[2020-04-23 20:02] LABS: ALT (SGPT) 18 U/L (8-55); AST (SGOT) 15 U/L (5-34); Albumin 3.3 g/dL (3.5-5.0); Alkaline Phosphatase 77 U/L (40-110); Anion Gap 19 mmol/L (10-20); BUN (Urea Nitrogen) 49 mg/dL (8.4-25.7); Bilirubin, Total 0.2 mg/dL (0.2-1.2); Calc. Creatinine Clearance 0 mL/min (70-130); Calcium 8.6 mg/dL (7.8-10.44); Carbon Dioxide 30 mmol/L (22-29); Chloride 97 mmol/L (98-107); Globulin 4.7 g/dL (2.4-3.5); Glucose 108 mg/dL (70-105); Lipase 23 U/L (8-78); Potassium 4.4 mmol/L (3.5-5.1); Sodium 142 mmol/L (136-145)
[2020-04-23 20:24] LABS: CKMB 1.6 ng/mL (0-6.6)
[2020-04-23] MEDS ORDERED: Nitroglycerin 2% Ointment 1 INCH/1 GM Packet ONE (20:27)
[2020-04-23] MEDS ORDERED: Aspirin 325 MG TAB ONE (20:27)
--- NOTE | 2020-04-23 21:11 | CT ---
CT ANGIOGRAM THORAX WITH CONTRAST: (CTA pulmonary angiogram) DATE: 04/23/2020 HISTORY: 55-year-old male with chest pain and elevated d-dimer TECHNIQUE: IV injection of iodinated contrast. Scan acquisition timing attempted to coincide with iodinated contrast bolus reaching maximal density in pulmonary arteries. 3-D MIP reconstructions. FINDINGS: There is clot in a medial basilar segmental branch of left lower lobe pulmonary artery, involving fif th order branch of the left lower lobe pulmonary artery and distal to that. There is no focal consolidation. Minimal nonspecific dependent changes at posterior bases of bilatera l lower lobes. No other groundglass lesions: No convincing evidence of COVID 19 pneumonia. No pleural effusion or pneumothorax. Trachea and major bronchi are patent and clear. No clot in right pulmonary artery branches and focal pulmonary arteries. No thoracic aortic aneurysm or dissection. No mediastinal or hilar lymphadenopathy. Atherosclerotic calcification of left main, LAD, LCx, RCA, and branches. IMPRESSION: 1) positive for pulmonary thromboembolism involving distal branches of left lower lobe pulmonary nargis ry. 2) ICD-10: I 25.84: Coronary atherosclerosis due to calcified coronary lesion.
[2020-04-23] MEDS ORDERED: Acetaminophen 650 MG Suppository PR PRN (22:38)
[2020-04-23] MEDS ORDERED: Apixaban 5 MG TAB PO SCH (23:30)
[2020-04-23 23:39] LABS: CKMB 1.8 ng/mL (0-6.6)
[2020-04-24] MEDS ORDERED: Acetaminophen 325 MG TAB ONE (00:38)
[2020-04-24] MEDS ORDERED: Activated Charcoal/Sorbitol 25 GM/120 ML TUBE ONE (00:38)
[2020-04-24] MEDS ORDERED: Morphine 2 MG/ML VIAL ONE (00:43)
--- NOTE | 2020-04-24 01:41 | PDOC.HHP ---
Hospitalist HPI History of Present Illness: ADMISSION DATE: 04/23/2020 TIME OF ASSESSMENT: 1999 CHIEF COMPLAINT: Right shoulder pain HPI: This is a 55-year-old gentleman who presents to the emergency department with complaints of severe right upper chest and right shoulder pain that has been intermittent since he was discharged from the hospital on 04/15/2020. The patient states that he developed severe pain yesterday evening which she states was a 10 out of 10 in severity and nonradiating. Denies having any associated shortness of breath and did not experience any substernal chest pain. Denies any nausea vomiting or abdominal discomfort. He states the pain has settled since he was given pain meds in the emergency department. Denies any trauma, falls, injuries or strenuous activity. States that when he first came into the ED he had limited range of motion due to the discomfort and that it was tender. At the moment however he denies having any tenderness or pain with range of motion. He was admitted from 04/10/2020 to 04/15/2020 with osteomyelitis of the right great toe is status post amputation of the right great toe done by Dr. Mitchell on 04/12/2020. He has a wound VAC in place and is being followed by wound care with the dressing changed earlier today. Is not due for dressing change again until next week. ROS: Denies having any fevers, chills or sweats. Denies having any urinary symptoms. No lower leg swelling or edema. No cough or hemoptysis. All other review of systems apart from what is mentioned above are negative. ED COURSE: In the emergency department the patient underwent an EKG demonstrated normal sinus rhythm with a heart rate of 80. He had laboratory studies which showed an elevated troponin of 0.082. White cell count 8.3, hemoglobin 10.3, platelets 405, neutrophils 68.4%. D-dimer was elevated at 1.83. BUN 49, creatinine 9.51, GFR 70, glucose 108. Given the elevated D-dimer he underwent a CT angiogram of the chest which demonstrated a pulmonary thromboembolism involving the distal branches of the left lower lobe pulmonary artery. He had coronary atherosclerosis due to calcified coronary lesion. Chest x-ray showed no acute cardiopulmonary findings. He did have a right shoulder x-ray that showed osteoarthrosis of the acromi oclavicular joint. He received 4 mg of morphine at initial presentation for shoulder pain. He was given Nitro-Bid 1 inch due to the elevated troponin. He had 325 mg of aspirin. Results of the CT angiogram were provided to Dr. Andrews who recommended Eliquis 5 mg p.o. twice daily. Allergies/Adverse Reactions: Allergy/AdvReac Type Severity Reaction Status Date / Time No Known Allergies Allergy Verified 06/21/16 13:59 Home Medications: Medication Instructions Recorded Confirmed Type Labetalol [Normodyne] 350 mg PO BID 03/05/16 04/10/20 History Lisinopril 40 mg PO DAILY 03/05/16 04/10/20 History hydrALAZINE [Apresoline] 100 mg PO TID 01/24/17 04/10/20 History Carvedilol [Coreg] 1 tab PO BID 04/10/20 04/10/20 History Amoxicillin/Potassium Clav 1 each PO BID #14 tablet 04/15/20 Rx [Augmentin 500-125 Tablet] Past History: PAST MEDICAL HISTORY: 1. End-stage renal disease on dialysis 2. Type 2 diabetes mellitus 3. Hypertension 4. Obesity PAST SURGICAL HISTORY: 1. Right great toe amputation 2. Left great toe amputation Dialysis shunt to left arm 3. PD dialysis shunt to left lower quadrant SOCIAL HISTORY: Patient lives with his family. Denies any tobacco use or alcohol consumption. He has a history of former drug use consisting of "crack". FAMILY HISTORY: Noncontributory Hospitalist Exam General Appearance: NAD, awake alert General - other findings: VS: Temp 98.2, HR 83, BP 152/87, RR 16, O2 sat 96% on room air. Eye: PERRL, anicteric sclera ENT: normocephalic atraumatic, no oropharyngeal lesions, moist mucosa Neck: supple, no lymphadenopathy Heart: RRR, normal peripheral pulses Respiratory: CTAB, no wheezes, no rales, no ronchi, normal chest expansion Gastrointestinal: soft, non-tender, non-distended, normal bowel sounds, no guarding, no rigidity Extremities: no edema Extremities - other findings: No right shoulder pain/tenderness, full ROM Skin: normal turgor, no rashes Neurological: cranial nerve grossly intact, normal sensation to touch Musculoskeletal: normal tone, normal strength, no muscle wasting Psychiatric: normal affect, normal behavior, A&O x 3 Hospitalist Results Result Diagrams: 04/23/20 19:26 04/23/20 19:26 Lab results: Laboratory Last Values WBC 8.3 thou/uL (4.8-10.8) 04/23/20 19:26 RBC 3.46 mill/uL (4.70-6.10) L 04/23/20 19:26 Hgb 10.3 g/dL (14.0-18.0) L 04/23/20 19:26 Hct 33.0 % (42.0-52.0) L 04/23/20 19:26 MCV 95.2 fL (78.0-98.0) 04/23/20 19:26 MCH 29.7 pg (27.0-31.0) 04/23/20 19: MCHC 31.2 g/dL (32.0-36.0) L 04/23/20 19:26 RDW 14.2 % (11.5-14.5) 04/23/20 19:26 Plt Count 405 thou/uL (130-400) H 04/23/20 19:26 MPV 7.1 fL (7.4-10.4) L 04/23/20 19:26 Neutrophils % 68.4 % (42.0-75.0) 04/23/20 19: Lymphocytes % 18.8 % (21.0-51.0) L 04/23/20 19:26 Monocytes % 8.4 % (0.0-10.0) 04/23/20 19: Eosinophils % 4.2 % (0.0-10.0) 04/23/20 19: Basophils % 0.2 % (0.0-1.0) 04/23/20 19:26 Neutrophils # 5.7 thou/uL (1.40-6.50) 04/23/20 19: Lymphocytes # 1.6 thou/uL (1.20-3.40) 04/23/20 19: Monocytes # 0.7 thou/uL (0.11-0.59) H 04/23/20 19:26 Eosinophils # 0.3 thou/uL (0.0-0.7) 04/23/20 19:26 Basophils # 0.0 thou/uL (0.0-0.2) 04/23/20 19:26 D-Dimer 1.83 *mcg/mL (0.27-0.43) H 04/23/20 19:26 Sodium 142 mmol/L (136-145) 04/23/20 19:26 Potassium 4.4 mmol/L (3.5-5.1) 04/23/20 19:26 Chloride 97 mmol/L (98-107) L 04/23/20 19:26 Carbon Dioxide 30 mmol/L (22-29) H 04/23/20 19:26 Anion Gap 19 mmol/L (10-20) 04/23/20 19:26 BUN 49 mg/dL (8.4-25.7) H 04/23/20 19:26 Creatinine 9.51 mg/dL (0.7-1.3) H 04/23/20 19:26 Estimated GFR (MDRD) 7 04/23/20 19:26 Glucose 108 mg/dL (70-105) H 04/23/20 19:26 Calcium 8.6 mg/dL (7.8-10.44) 04/23/20 19:26 Magnesium 2.0 mg/dL (1.6-2.6) 04/23/20 22:35 Total Bilirubin 0.2 mg/dL (0.2-1.2) 04/23/20 19:26 AST 15 U/L (5-34) 04/23/20 19:26 ALT 18 U/L (8-55) 04/23/20 19:26 Alkaline Phosphatase 77 U/L (40-110) 04/23/20 19:26 CK-MB (CK-2) 1.8 ng/mL (0-6.6) 04/23/20 22:35 Troponin I 0.076 ng/mL (< 0.028) H 04/23/20 22:35 Serum Total Protein 8.0 g/dL (6.0-8.3) 04/23/20 19:26 Albumin 3.3 g/dL (3.5-5.0) L 04/23/20 19:26 Globulin 4.7 g/dL (2.4-3.5) H 04/23/20 19:26 Albumin/Globulin Ratio 0.7 g/dL (1.2-2.2) L 04/23/20 19:26 Lipase 23 U/L (8-78) 04/23/20 19:26 Hospitalist H&P A/P (1) Pulmonary embolism Code(s): I26.99 - OTHER PULMONARY EMBOLISM WITHOUT ACUTE COR PULMONALE Status: Acute (2) Elevated troponin I level Code(s): R77.8 - OTHER SPECIFIED ABNORMALITIES OF PLASMA PROTEINS Status: Ac ernestina (3) Diabetes mellitus type 2 in obese Code(s): E11.69 - TYPE 2 DIABETES MELLITUS WITH OTHER SPECIFIED COMPLICATION; E66.9 - OBESITY, UNSPECIFIED Status: Chronic (4) End stage renal disease on dialysis Code(s): N18.6 - END STAGE RENAL DISEASE; Z99.2 - DEPENDENCE ON RENAL DIALYSIS Status: Chronic (5) HTN (hypertension) Code(s): I10 - ESSENTIAL (PRIMARY) HYPERTENSION Status: Chronic Qualifiers: Hypertension type: renovascular hypertension Qualified Code(s): I15.0 - Renovascular hypertension Plan: Continue Eliquis as per Dr. Andrews Continuous cardiac monitoring Monitor O2 sats Serial troponins ordered Nephrology consult placed Wound care consulted Monitor BP Accu-cheks ACHS ISS initiated Resume home medications once verified, as appropriate CODE STATUS FULL
[2020-04-24 02:58] LABS: SARS-CoV-2 PCR by NAA Not Detected (NotDetected)
[2020-04-24] MEDS ORDERED: HumaLOG 300 UNITS/3 ML VIAL SC PRN ×2 (03:41)
[2020-04-24] MEDS ORDERED: Dextrose 5% in Water 1,000 ML IV PRN (03:41)
[2020-04-24] MEDS ORDERED: Dextrose 50% Abboject 50 ML SYRINGE SLOW IVP PRN (03:41)
[2020-04-24 03:42] VITALS: BMI 35.0
[2020-04-24] MEDS ORDERED: Morphine 2 MG/ML VIAL SLOW IVP SCH (04:15)
[2020-04-24 04:50] LABS: #Eosinphils 0.3 thou/uL (0.0-0.7); #Lymphocytes 1.3 thou/uL (1.20-3.40); #Monocytes 0.6 thou/uL (0.11-0.59); #Neutrophils 4.7 thou/uL (1.40-6.50); %Basophils 0.4 % (0.0-1.0); %Lymphocytes 18.7 % (21.0-51.0); %Monocytes 8.2 % (0.0-10.0); %Neutrophils 68.6 % (42.0-75.0); Hemoglobin 9.4 g/dL (14.0-18.0); Mean Corpuscular Hemoglobin 30.3 pg (27.0-31.0); Mean Corpuscular Volume 94.9 fL (78.0-98.0); Mean Platelet Volume 6.9 fL (7.4-10.4); Platelet Count 338 thou/uL (130-400); RBC Distribution Width 14.2 % (11.5-14.5); Red Blood Cell (RBC) Count 3.11 mill/uL (4.70-6.10); White Blood Cell (WBC) Count 6.9 thou/uL (4.8-10.8)
[2020-04-24 05:08] LABS: Anion Gap 17 mmol/L (10-20); BUN (Urea Nitrogen) 49 mg/dL (8.4-25.7); Calc. Creatinine Clearance 14 mL/min (70-130); Calcium 8.4 mg/dL (7.8-10.44); Carbon Dioxide 27 mmol/L (22-29); Chloride 97 mmol/L (98-107); Glucose 118 mg/dL (70-105); Potassium 3.6 mmol/L (3.5-5.1); Sodium 137 mmol/L (136-145)
[2020-04-24] MEDS: Acetaminophen 325 MG TAB PO PRN ×2 (10:33→21:35)
[2020-04-24] MEDS: Apixaban 5 MG TAB PO SCH ×2 (10:33→21:36)
[2020-04-24] MEDS: Lidocaine 5% Patch TD SCH (10:33)
--- NOTE | 2020-04-24 12:30 | PDOC.HOSPP ---
- Subjective Encounter Date: 04/24/20 (f/u PE) Encounter Time: 12:26 Subjective: Pt reports that the pain is curerntly controlled. He has a lidocaine patch on and had tylenol earlier. He denies any n/v/abd pain. He denies any shortness of breath. - Objective Vital Signs & Weight: Vital Signs (12 hours) Temp Pulse Resp BP Pulse Ox 04/24/20 08:09 97.8 F 77 18 142/76 H 96 04/24/20 03:54 98 F 75 20 157/82 H 95 Weight Weight 258 lb 6 oz I&O: 04/23/20 04/24/20 04/25/20 06:59 06:59 06:59 Intake Total 0 Output Total 0 Balance 0 Result Diagrams: 04/24/20 04:39 04/24/20 04:39 Additional Labs: Accuchecks 04/24/20 04/24/20 05:56 04:19 POC Glucose 123 H 116 H EKG Reviewed by me: Yes (tele - sinus 70's with inverted t waves) Hospitalist ROS - Medication Medications: Active Medications Generic Name Dose Route Start Last Admin Trade Name Freq PRN Reason Stop Dose Admin Acetaminophen 650 mg 04/23/20 22:38 04/24/20 10:33 Acetaminophen 325 Mg Tab PO 650 mg Q4H PRN Administration Headache/Fever/Mild Pain (1-3) Apixaban 5 mg 04/24/20 09:00 04/24/20 10:33 Apixaban 5 Mg Tab PO 5 mg BID DARLENE Administration Lidocaine 1 patch 04/24/20 09:00 04/24/20 10:33 Lidocaine 5% Patch TD 1 patch DAILY DARLENE Administration Hospitalist Exam Vitals: Vital Signs (12 hours) Temp Pulse Resp BP Pulse Ox 04/24/20 08:09 97.8 F 77 18 142/76 H 96 04/24/20 03:54 98 F 75 20 157/82 H 95 Weight Weight 258 lb 6 oz General Appearance: NAD Heart: RRR, no murmur Respiratory: no wheezes, no rales, no ronchi Gastrointestinal: soft, non-tender, non-distended, normal bowel sounds Extremities: no cyanosis, no clubbing, no edema Skin - other findings: right great toe/LE with dressing Psychiatric: normal affect Hosp A/P (1) Pulmonary embolism Code(s): I26.99 - OTHER PULMONARY EMBOLISM WITHOUT ACUTE COR PULMONALE Status: Acute (2) Osteomyelitis of great toe of right foot Code(s): M86.9 - OSTEOMYELITIS, UNSPECIFIED Status: Acute (3) End stage renal disease on dialysis Code(s): N18.6 - END STAGE RENAL DISEASE; Z99.2 - DEPENDENCE ON RENAL DIALYSIS Status: Chronic (4) HTN (hypertension) Code(s): I10 - ESSENTIAL (PRIMARY) HYPERTENSION Status: Chronic Qualifiers: Hypertension type: renovascular hypertension Qualified Code(s): I15.0 - Renovascular hypertension - Plan PE - new diagnosis - continue eliquis and telemetry monitoring - add additional oral and IV pain med options HTN - resume home meds then reconcilled Recent osteomyelitis and toe amputation - continue antibiotics as pt reports he only started it recently as an outpatient. - wound care consult for wound vac ESRD on hemodialysis - nephrology consult to arrange. Pt no longer has a peritoneal dialysis catheter - renal diet gi prophy - not indicated code status full will continue monitoring for another 24 hours. If pt doing well, anticipate d/c tomorrow after dialysis. change to inpatient status as pt meets Medicare critieria.
--- NOTE | 2020-04-24 13:31 | CON ---
DATE OF CONSULTATION: CONSULTING PHYSICIAN: Karla Corea PA-C REASON FOR CONSULTATION: End-stage renal disease evaluation. REASON FOR ADMISSION: Shoulder pain. HISTORY OF PRESENT ILLNESS: A 55-year-old male with history of end-stage renal disease, hypertension, type 2 diabetes, who came to the hospital with shoulder pain and is being admitted. No nausea or vomiting. No chest pain or palpitation. PAST MEDICAL HISTORY: Positive for end-stage renal disease, type 2 diabetes, hypertension, and obesity. PAST SURGICAL HISTORY: Toe amputation, dialysis access placement. HOME MEDICATIONS: Reviewed. ALLERGIES: NO KNOWN DRUG ALLERGIES. SOCIAL HISTORY: No smoking, alcohol, or drug use. FAMILY HISTORY: No history of kidney disease. REVIEW OF SYSTEMS: The following complete review of systems was negative, unless otherwise mentioned in the HPI or below: Constitutional: Weight loss or gain, ability to conduct usual activities. Skin: Rash, itching. Eyes: Double vision, pain. ENT/Mouth: Nose bleeding, neck stiffness, pain, tenderness. Cardiovascular: Palpitations, dyspnea on exertion, orthopnea. Respiratory: Shortness of breath, wheezing, cough, hemoptysis, fever or night sweats. Gastrointestinal: Poor appetite, abdominal pain, heartburn, nausea, vomiting, constipation, or diarrhea. Genitourinary: Urgency, frequency, dysuria, nocturia. Musculoskeletal: Pain, swelling. Neurologic/Psychiatric: Anxiety, depression. Allergy/Immunologic: Skin rash, bleeding tendency. PHYSICAL EXAMINATION: GENERAL: This is a well-built male, in no apparent distress. VITAL SIGNS: Revealed temperature 97.8, pulse 77, respiratory rate 18, blood pressure 143/76. HEENT: Atraumatic, normocephalic. Oral mucosa moist. NECK: Supple. CVS: S1, S2 heard. Rate and rhythm are regular. RESPIRATORY: Clear. GI: Abdomen is soft. MUSCULOSKELETAL: No tenderness. No edema. DERMATOLOGIC: Denies. NEUROLOGIC: . LABORATORY DATA: Potassium is 3.6, BUN is 49, creatinine is 7.3. ASSESSMENT AND PLAN: 1. End-stage renal disease. Continue dialysis on Saturday, Saturday, and Saturday. 2. History of hypertension. 3. Anemia of chronic disease. 4. Edema. We will continue dialysis on Saturday, Saturday, and Saturday. Job ID: [id number]
[2020-04-24] MEDS: Carvedilol 3.125 MG TAB PO SCH (21:36)
[2020-04-24] MEDS: Labetalol 100 MG TAB PO SCH (21:36)
[2020-04-24] MEDS: Amoxicillin/Potassium Clav 500 MG TAB PO SCH (21:36)
[2020-04-24] MEDS: hydrALAZINE 25 MG TAB PO SCH (21:36)
[2020-04-24] MEDS: Lidocaine Patch Removal TOP SCH (21:39)
[2020-04-24] MEDS: traMADol HCl 50 MG TAB PO PRN (23:37)
[2020-04-25 05:26] LABS: #Eosinphils 0.4 thou/uL (0.0-0.7); #Lymphocytes 1.4 thou/uL (1.20-3.40); #Monocytes 0.7 thou/uL (0.11-0.59); #Neutrophils 5.1 thou/uL (1.40-6.50); %Basophils 0.4 % (0.0-1.0); %Eosinophils 4.6 % (0.0-10.0); %Lymphocytes 18.6 % (21.0-51.0); %Monocytes 9.6 % (0.0-10.0); %Neutrophils 66.7 % (42.0-75.0); Hemoglobin 9.6 g/dL (14.0-18.0); Mean Corpuscular HGB CONC 32.4 g/dL (32.0-36.0); Mean Corpuscular Hemoglobin 30.4 pg (27.0-31.0); Mean Corpuscular Volume 93.7 fL (78.0-98.0); Platelet Count 338 thou/uL (130-400); RBC Distribution Width 14.2 % (11.5-14.5); Red Blood Cell (RBC) Count 3.16 mill/uL (4.70-6.10); White Blood Cell (WBC) Count 7.7 thou/uL (4.8-10.8)
[2020-04-25] MEDS: Morphine 2 MG/ML VIAL SLOW IVP PRN ×2 (05:31→09:36)
[2020-04-25 05:49] LABS: Anion Gap 23 mmol/L (10-20); BUN (Urea Nitrogen) 66 mg/dL (8.4-25.7); Calc. Creatinine Clearance 11 mL/min (70-130); Calcium 8.2 mg/dL (7.8-10.44); Carbon Dioxide 22 mmol/L (22-29); Chloride 96 mmol/L (98-107); Glucose 84 mg/dL (70-105); Potassium 4.3 mmol/L (3.5-5.1); Sodium 137 mmol/L (136-145)
--- NOTE | 2020-04-25 08:42 | PDOC.HOSPP ---
- Subjective Encounter Date: 04/25/20 Encounter Time: 08:33 Subjective: cont to complain of shoulder pain - Objective Vital Signs & Weight: Vital Signs (12 hours) Temp Pulse Resp BP BP Pulse Ox 04/25/20 07:16 97.8 F 69 17 164/88 H 96 04/25/20 04:00 97.6 F 78 12 193/115 H 92 L 04/24/20 21:36 70 04/24/20 21:31 98 F 73 16 198/92 H 95 Weight Weight 258 lb 6 oz I&O: 04/24/20 04/25/20 04/26/20 06:59 06:59 06:59 Intake Total 0 500 Output Total 0 Balance 0 500 Result Diagrams: 04/25/20 04:46 04/25/20 04:46 Additional Labs: Accuchecks 04/25/20 04/24/20 04/24/20 06:20 21:16 17:57 POC Glucose 78 151 H 76 04/24/20 14:39 POC Glucose 108 H Hospitalist ROS - Medication Medications: Active Medications Generic Name Dose Route Start Last Admin Trade Name Freq PRN Reason Stop Dose Admin Acetaminophen 650 mg 04/23/20 22:38 04/24/20 21:35 Acetaminophen 325 Mg Tab PO 650 mg Q4H PRN Administration Headache/Fever/Mild Pain (1-3) Amoxicillin/Clavulanate Potassium 500 mg 04/24/20 21:00 04/24/20 21:36 Amoxicillin/Potassium Clav 500 Mg Tab PO 05/01/20 21:01 500 mg BID DARLENE Administration Apixaban 5 mg 04/24/20 09:00 04/24/20 21:36 Apixaban 5 Mg Tab PO 5 mg BID DARLENE Administration Carvedilol 3.125 mg 04/24/20 21:00 04/24/20 21:36 Carvedilol 3.125 Mg Tab PO 3.125 mg BID DARLENE Administration Hydralazine HCl 100 mg 04/24/20 21:00 04/24/20 21:36 Hydralazine 25 Mg Tab PO 100 mg TID DARLENE Administration Labetalol HCl 350 mg 04/24/20 21:00 04/24/20 21:36 Labetalol 100 Mg Tab PO 350 mg BID DARLENE Administration Lidocaine 1 patch 04/24/20 09:00 04/24/20 10:33 Lidocaine 5% Patch TD 1 patch DAILY DARLENE Administration Miscellaneous Medication 1 each 04/24/20 21:00 04/24/20 21:39 Lidocaine Patch Removal TOP 1 each 2100 DARLENE Administration Morphine Sulfate 2 mg 04/24/20 12:03 04/25/20 05:31 Morphine 2 Mg/Ml Vial SLOW IVP 2 mg Q4H PRN Administration Moderate Pain (4-6) Tramadol HCl 50 mg 04/24/20 12:03 04/24/20 23:37 Tramadol Hcl 50 Mg Tab PO 50 mg Q12H PRN Administration Mild-Moderate Pain (1-5) Hospitalist Exam Vitals: Vital Signs (12 hours) Temp Pulse Resp BP BP Pulse Ox 04/25/20 07:16 97.8 F 69 17 164/88 H 96 04/25/20 04:00 97.6 F 78 12 193/115 H 92 L 04/24/20 21:36 70 04/24/20 21:31 98 F 73 16 198/92 H 95 Weight Weight 258 lb 6 oz General Appearance: awake alert Neck: no JVD Heart: RRR, no murmur Respiratory: CTAB Gastrointestinal: soft, normal bowel sounds Extremities: no edema Hosp A/P (1) Shoulder pain Code(s): M25.519 - PAIN IN UNSPECIFIED SHOULDER Status: Acute Qualifiers: Chronicity: acute Laterality: right Qualified Code(s): M25.511 - Pain in right shoulder (2) Pulmonary embolism Code(s): I26.99 - OTHER PULMONARY EMBOLISM WITHOUT ACUTE COR PULMONALE Status: Acute Qualifiers: Chronicity: acute Acute cor pulmonale presence: without acute cor pulmonale (3) Diabetes mellitus type 2 in nonobese Code(s): E11.9 - TYPE 2 DIABETES MELLITUS WITHOUT COMPLICATIONS Status: Chronic (4) End stage renal disease on dialysis Code(s): N18.6 - END STAGE RENAL DISEASE; Z99.2 - DEPENDENCE ON RENAL DIALYSIS Status: Chronic (5) HTN (hypertension) Code(s): I10 - ESSENTIAL (PRIMARY) HYPERTENSION Status: Chronic Qualifiers: Hypertension type: renovascular hypertension Qualified Code(s): I15.0 - Renovascular hypertension - Plan cont anticoag cont routine HD check uric acid level
--- NOTE | 2020-04-25 13:03 | PRG ---
DATE OF SERVICE: 04/25/2020 SUBJECTIVE: A 55-year-old gentleman being seen for end-stage renal disease. The patient denied nausea, vomiting or chest pain. OBJECTIVE: GENERAL: The patient is awake and alert. VITAL SIGNS: Afebrile, pulse 75, breathing 16, blood pressure . HEENT: Head normocephalic and atraumatic. Eyes intact, no ulcers. Nose intact, no ulcers. Ears intact, no ulcers. NECK: Supple. No JVD. CHEST: Symmetrical and clear. CARDIOVASCULAR: Shows S1 and S2, no rub, no murmur. GASTROINTESTINAL: Abdomen is soft, bowel sounds positive. EXTREMITIES: Show no edema or ulcers. SKIN: Shows no rash or petechiae. MUSCULOSKELETAL: Shows no joint swelling or stiffness. GENITOURINARY: Shows no Madsen or CVA tenderness. NEUROLOGIC: Motor intact. Cranial nerves intact. LABORATORY DATA: Reviewed. ASSESSMENT AND PLAN: 1. Chronic kidney disease stage 6, stable. 2. Hypertension, stable. 3. Anemia, stable. Medication based on GFR appropriate. Job ID: [id number]
[2020-04-25] MEDS: Amoxicillin/Potassium Clav 500 MG TAB PO SCH ×2 (13:23→21:14)
[2020-04-25] MEDS: hydrALAZINE 25 MG TAB PO SCH ×3 (13:23→21:14)
[2020-04-25] MEDS: Labetalol 100 MG TAB PO SCH ×2 (13:24→21:16)
[2020-04-25] MEDS: Carvedilol 3.125 MG TAB PO SCH ×2 (13:25→21:14)
[2020-04-25] MEDS: Lisinopril 20 MG TAB PO SCH (13:25)
[2020-04-25] MEDS: Apixaban 5 MG TAB PO SCH ×2 (13:25→21:16)
[2020-04-25] MEDS: Lidocaine 5% Patch TD SCH (13:25)
[2020-04-25] MEDS: Zolpidem Tartrate 5 MG TAB PO PRN (21:17)
[2020-04-25] MEDS: Lidocaine Patch Removal TOP SCH (21:18)
[2020-04-26] MEDS ORDERED: diphenhydrAMINE 25 MG CAP PO SCH (01:30)
[2020-04-26 01:48] LABS: #Eosinphils 0.3 thou/uL (0.0-0.7); #Lymphocytes 1.3 thou/uL (1.20-3.40); #Monocytes 0.7 thou/uL (0.11-0.59); #Neutrophils 6.1 thou/uL (1.40-6.50); %Basophils 0.6 % (0.0-1.0); %Eosinophils 3.4 % (0.0-10.0); %Lymphocytes 15.6 % (21.0-51.0); %Monocytes 8.3 % (0.0-10.0); %Neutrophils 72.1 % (42.0-75.0); Hemoglobin 11.1 g/dL (14.0-18.0); Mean Corpuscular HGB CONC 32.6 g/dL (32.0-36.0); Mean Corpuscular Hemoglobin 30.8 pg (27.0-31.0); Mean Corpuscular Volume 94.4 fL (78.0-98.0); Mean Platelet Volume 6.8 fL (7.4-10.4); Platelet Count 364 thou/uL (130-400); RBC Distribution Width 14.5 % (11.5-14.5); Red Blood Cell (RBC) Count 3.62 mill/uL (4.70-6.10); White Blood Cell (WBC) Count 8.5 thou/uL (4.8-10.8)
[2020-04-26 02:05] LABS: Lactic Acid 1.1 mmol/L (0.5-2.2)
[2020-04-26 02:10] LABS: Anion Gap 20 mmol/L (10-20); BUN (Urea Nitrogen) 38 mg/dL (8.4-25.7); Calc. Creatinine Clearance 15 mL/min (70-130); Calcium 8.7 mg/dL (7.8-10.44); Carbon Dioxide 25 mmol/L (22-29); Chloride 97 mmol/L (98-107); Glucose 118 mg/dL (70-105); Magnesium 2.1 mg/dL (1.6-2.6); Potassium 3.9 mmol/L (3.5-5.1); Sodium 138 mmol/L (136-145)
--- NOTE | 2020-04-26 08:19 | CT ---
PRELIMINARY REPORT/[facility]/EMERGENCY AFTER HOURS PROCEDURE: EXAM: CT Head Without Intravenous Contrast. CLINICAL HISTORY: M55, New onset stutter and slurred speech TECHNIQUE: Axial computed tomography images of the head/brain without intravenous contrast. COMPARISON: None provided. FINDINGS: BRAIN: Periventricular deep white matter low attenuation changes are present. A chronic appearing lac unar infarct is suggested within the anterior right basal ganglia. A small focus of encephalomalacia is also present within the right pontine portion of the brainstem. VENTRICLES: No hydrocephalus. ORBITS: The orbits are unremarkable. SINUSES AND MASTOIDS: The paranasal sinuses and mastoid air cells are clear. SOFT TISSUES: No significant facial or scalp soft tissue swelling evident. No radiopaque foreign body is seen. BONES: No acute skull fracture. IMPRESSION: 1. No evidence of acute intracranial hemorrhage. 2. Periventricular deep white matter low attenuation changes, likely reflecting early small vessel is chemia with chronic appearing punctate areas of lacunar infarction suggested within the pontine porti on of the brainstem, and the anterior right basal ganglia. 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 There is moderate small-vessel ischemic disease without acute intracranial abnormality. POS: RIC
[2020-04-26] MEDS: Apixaban 5 MG TAB PO SCH ×2 (08:42→20:02)
[2020-04-26] MEDS: Carvedilol 3.125 MG TAB PO SCH ×2 (08:42→20:02)
[2020-04-26] MEDS: Amoxicillin/Potassium Clav 500 MG TAB PO SCH ×2 (08:42→20:02)
[2020-04-26] MEDS: hydrALAZINE 25 MG TAB PO SCH ×3 (08:43→20:03)
[2020-04-26] MEDS: Lidocaine 5% Patch TD SCH (08:43)
[2020-04-26] MEDS: Lisinopril 20 MG TAB PO SCH (08:44)
[2020-04-26] MEDS: Labetalol 100 MG TAB PO SCH ×2 (08:44→20:12)
--- NOTE | 2020-04-26 14:22 | PDOC.HOSPP ---
- Subjective Encounter Date: 04/26/20 Encounter Time: 14:20 Subjective: only complint is stutterring speech - Objective Vital Signs & Weight: Vital Signs (12 hours) Temp Pulse Resp BP BP BP Pulse Ox 04/26/20 12:10 98.6 F 73 18 140/73 97 04/26/20 08:44 78 141/69 H 04/26/20 08:43 78 141/69 H 04/26/20 08:37 141/67 H 04/26/20 07:48 98.7 F 78 15 111/63 95 04/26/20 04:39 98.5 F 79 14 140/74 97 Weight Admit Weight 258 lb 6 oz Weight 258 lb 6 oz I&O: 04/25/20 04/26/20 04/27/20 06:59 06:59 06:59 Intake Total 500 240 Balance 500 240 Result Diagrams: 04/26/20 01:35 04/26/20 01:35 Additional Labs: Accuchecks 04/26/20 04/26/20 04/26/20 12:08 10:46 06:03 POC Glucose 131 H 97 125 H 04/25/20 04/25/20 20:33 16:45 POC Glucose 169 H 127 H Radiology Reviewed by me: Yes (CT Brain- no acue process) EKG Reviewed by me: Yes (brain, awaiting radioloical confirmation) Hospitalist ROS - Medication Medications: Active Medications Generic Name Dose Route Start Last Admin Trade Name Freq PRN Reason Stop Dose Admin Acetaminophen 650 mg 04/23/20 22:38 04/24/20 21:35 Acetaminophen 325 Mg Tab PO 650 mg Q4H PRN Administration Headache/Fever/Mild Pain (1-3) Amoxicillin/Clavulanate Potassium 500 mg 04/24/20 21:00 04/26/20 08:42 Amoxicillin/Potassium Clav 500 Mg Tab PO 05/01/20 21:01 500 mg BID DARLENE Administration Apixaban 5 mg 04/24/20 09:00 04/26/20 08:42 Apixaban 5 Mg Tab PO 5 mg BID DARLENE Administration Carvedilol 3.125 mg 04/24/20 21:00 04/26/20 08:42 Carvedilol 3.125 Mg Tab PO 3.125 mg BID DARLENE Administration Hydralazine HCl 100 mg 04/24/20 21:00 04/26/20 08:43 Hydralazine 25 Mg Tab PO 100 mg TID DARLENE Administration Labetalol HCl 350 mg 04/24/20 21:00 04/26/20 08:44 Labetalol 100 Mg Tab PO 350 mg BID DARLENE Administration Lidocaine 1 patch 04/24/20 09:00 04/26/20 08:43 Lidocaine 5% Patch TD 1 patch DAILY DARLENE Administration Lisinopril 40 mg 04/25/20 09:00 04/26/20 08:44 Lisinopril 20 Mg Tab PO 40 mg DAILY DARLENE Administration Miscellaneous Medication 1 each 04/24/20 21:00 04/25/20 21:18 Lidocaine Patch Removal TOP 1 each 2100 DARLENE Administration Morphine Sulfate 2 mg 04/24/20 12:03 04/25/20 09:36 Morphine 2 Mg/Ml Vial SLOW IVP 2 mg Q4H PRN Administration Moderate Pain (4-6) Tramadol HCl 50 mg 04/24/20 12:03 04/24/20 23:37 Tramadol Hcl 50 Mg Tab PO 50 mg Q12H PRN Administration Mild-Moderate Pain (1-5) Zolpidem Tartrate 5 mg 04/25/20 15:01 04/25/20 21:17 Zolpidem Tartrate 5 Mg Tab PO 5 mg HS PRN Administration Insomnia Hospitalist Exam Vitals: Vital Signs (12 hours) Temp Pulse Resp BP BP BP Pulse Ox 04/26/20 12:10 98.6 F 73 18 140/73 97 04/26/20 08:44 78 141/69 H 04/26/20 08:43 78 141/69 H 04/26/20 08:37 141/67 H 04/26/20 07:48 98.7 F 78 15 111/63 95 04/26/20 04:39 98.5 F 79 14 140/74 97 Weight Admit Weight 258 lb 6 oz Weight 258 lb 6 oz General Appearance: awake alert Neck: no JVD Heart: RRR, no murmur, irregular Respiratory: CTAB Gastrointestinal: soft, non-distended, normal bowel sounds Extremities: no edema Extremities - other findings: open post amp R greay toe Neurological: cranial nerve grossly intact, no focal deficits, speech deficit Hosp A/P (1) Shoulder pain Code(s): M25.519 - PAIN IN UNSPECIFIED SHOULDER Status: Acute Qualifiers: Chronicity: acute Laterality: right Qualified Code(s): M25.511 - Pain in right shoulder (2) Pulmonary embolism Code(s): I26.99 - OTHER PULMONARY EMBOLISM WITHOUT ACUTE COR PULMONALE Status: Acute Qualifiers: Chronicity: acute Acute cor pulmonale presence: without acute cor pulmonale (3) Diabetes mellitus type 2 in nonobese Code(s): E11.9 - TYPE 2 DIABETES MELLITUS WITHOUT COMPLICATIONS Status: Chronic (4) End stage renal disease on dialysis Code(s): N18.6 - END STAGE RENAL DISEASE; Z99.2 - DEPENDENCE ON RENAL DIALYSIS Status: Chronic (5) HTN (hypertension) Code(s): I10 - ESSENTIAL (PRIMARY) HYPERTENSION Status: Chronic Qualifiers: Hypertension type: renovascular hypertension Qualified Code(s): I15.0 - Renovascular hypertension - Plan cont anticoag cont routine HD await MRI for further eval of dysarthria
--- NOTE | 2020-04-26 14:40 | MRI ---
MRI OF THE BRAIN WITHOUT CONTRAST: 04/26/20 HISTORY: New speech changes, stuttering and slurred speech. FINDINGS: Correlation is made with the CT scan of earlier today. There is a small focal area of restricted diffusion with hypointensity on the ADC images in the left basal ganglia. There are changes of chronic small vessel ischemic disease in the periventricular whit e matter. The ventricular size is appropriate and the basilar cisterns patent. There is a mucous rete ntion cyst versus polyp in the left maxillary sinus. No transcortical infarct, hemorrhage, midline sh ift, or abnormal extra-axial fluid collections are seen. IMPRESSION: Acute lacunar infarction in the left basal ganglia. POS: OFF
--- NOTE | 2020-04-26 15:33 | PRG ---
DATE OF SERVICE: SUBJECTIVE: A 55-year-old gentleman, being seen for end-stage renal disease. The patient denied nausea, vomiting, or chest pain. OBJECTIVE: GENERAL: The patient is awake and alert. VITAL SIGNS: Afebrile, pulse 70, breathing at 16, blood pressure 140/70. HEENT: Head normocephalic and atraumatic. Eyes intact, no ulcers. Nose intact, no ulcers. Ears intact, no ulcers. NECK: Supple. No JVD. CHEST: Symmetrical and clear. CARDIOVASCULAR: Shows S1 and S2, no rub, no murmur. GASTROINTESTINAL: Abdomen is soft, bowel sounds positive. EXTREMITIES: Show no edema or ulcers. SKIN: Shows no rash or petechiae. MUSCULOSKELETAL: Shows no joint swelling or stiffness. GENITOURINARY: Shows no Madsen or CVA tenderness. NEUROLOGIC: Motor intact. Cranial nerves intact. LABORATORY DATA: Reviewed. ASSESSMENT AND PLAN: 1. Stage 6 chronic kidney disease. Plan dialysis. 2. Hypertension, stable. 3. Anemia, stable. Medication based on GFR appropriate. Job ID: [id number]
--- NOTE | 2020-04-26 16:02 | PDOC.BPN ---
- Brief Progress Note Encounter Date: 04/26/20 Encounter Time: 16:01 MRI -lacunar infarct, acute. sttatr ASA, statin, consult speech therapy
--- NOTE | 2020-04-26 17:31 | PRG ---
DATE OF SERVICE: 04/26/2020 Mr. Kelley is postoperative day #14 from a right great toe ray amputation. He had gone home and apparently returned after being discharged home with what I believe has been diagnosed with a pulmonary embolism. He was readmitted to the hospital three days ago. At some point, he has apparently developed speech changes and is slurring his speech now and he has undergone an MRI of the brain that shows an acute lacunar infarct of the left basal ganglia. I was asked to evaluate him in regard to healing of his foot wound. I met with the Wound Care team and examined his foot at the time of the dressing change. On examination, he is afebrile, pulse 79, blood pressure 142/82. The right foot open wound is generally healing okay. The bone is well vascularized, but the surrounding tissue seems to have shrunk back to where the bone is almost protruding in level with the tissue rather than back within the soft tissue. The surrounding soft tissue viable. The second toe which I was concerned might become necrotic is still viable and functional. There is no purulence within the wound. There is no debridement necessary. Wound VAC was reapplied. It is possible that he will require additional debridement of the 1st metatarsal bone to allow appropriate healing. For right now, I would discontinue the wound VAC wound care and pressure avoidance and I will see him in a couple of weeks to check on the continued healing of this. Job ID: [id number]
[2020-04-26] MEDS: Morphine 2 MG/ML VIAL SLOW IVP PRN (17:35)
[2020-04-26] MEDS: Atorvastatin Calcium 40 MG TAB PO SCH (20:02)
[2020-04-26] MEDS: Lidocaine Patch Removal TOP SCH (20:04)
[2020-04-27] MEDS: Zolpidem Tartrate 5 MG TAB PO PRN ×2 (00:16→21:07)
[2020-04-27] MEDS: Acetaminophen 325 MG TAB PO PRN (06:30)
[2020-04-27] MEDS ORDERED: Heparin 10,000 UNITS/ 10 ML VIAL ONE (10:11)
[2020-04-27] MEDS: Aspirin 325 MG TAB PO SCH (12:24)
[2020-04-27] MEDS: Lisinopril 20 MG TAB PO SCH (12:24)
[2020-04-27] MEDS: hydrALAZINE 25 MG TAB PO SCH ×3 (12:24→21:04)
[2020-04-27] MEDS: Carvedilol 3.125 MG TAB PO SCH ×2 (12:24→21:04)
[2020-04-27] MEDS: Amoxicillin/Potassium Clav 500 MG TAB PO SCH ×2 (12:25→21:03)
[2020-04-27] MEDS: Apixaban 5 MG TAB PO SCH ×2 (12:25→21:03)
[2020-04-27] MEDS: Morphine 2 MG/ML VIAL SLOW IVP PRN (14:27)
[2020-04-27] MEDS: Labetalol 100 MG TAB PO SCH ×2 (14:28→21:05)
--- NOTE | 2020-04-27 14:29 | PDOC.HOSPP ---
- Subjective Encounter Date: 04/27/20 Encounter Time: 14:27 Subjective: DYSARTHRIA IMPROVING - Objective Vital Signs & Weight: Vital Signs (12 hours) Temp Pulse Resp BP BP BP Pulse Ox 04/27/20 12:24 78 163/83 H 04/27/20 11:44 97.3 F L 78 16 163/83 H 98 04/27/20 07:26 98.3 F 78 15 129/66 97 04/27/20 04:19 98.5 F 84 14 137/63 94 L Weight Admit Weight 258 lb 6 oz Weight 258 lb 6 oz I&O: 04/26/20 04/27/20 04/28/20 06:59 06:59 06:59 Intake Total 1087 480 Output Total 0 2900 Balance 1087 -2420 Result Diagrams: 04/26/20 01:35 04/26/20 01:35 Additional Labs: Accuchecks 04/27/20 04/27/20 04/26/20 11:25 06:05 21:15 POC Glucose 94 113 H 120 H 04/26/20 16:27 POC Glucose 107 H Hospitalist ROS - Medication Medications: Active Medications Generic Name Dose Route Start Last Admin Trade Name Freq PRN Reason Stop Dose Admin Acetaminophen 650 mg 04/23/20 22:38 04/27/20 06:30 Acetaminophen 325 Mg Tab PO 650 mg Q4H PRN Administration Headache/Fever/Mild Pain (1-3) Amoxicillin/Clavulanate Potassium 500 mg 04/24/20 21:00 04/27/20 12:25 Amoxicillin/Potassium Clav 500 Mg Tab PO 05/01/20 21:01 500 mg BID DARLENE Administration Apixaban 5 mg 04/24/20 09:00 04/27/20 12:25 Apixaban 5 Mg Tab PO 5 mg BID DARLENE Administration Aspirin 325 mg 04/27/20 09:00 04/27/20 12:24 Aspirin 325 Mg Tab PO 325 mg DAILY DARLENE Administration Atorvastatin Calcium 40 mg 04/26/20 21:00 04/26/20 20:02 Atorvastatin Calcium 40 Mg Tab PO 40 mg HS DARLENE Administration Carvedilol 3.125 mg 04/24/20 21:00 04/27/20 12:24 Carvedilol 3.125 Mg Tab PO 3.125 mg BID DARLENE Administration Hydralazine HCl 100 mg 04/24/20 21:00 04/27/20 12:24 Hydralazine 25 Mg Tab PO 100 mg TID DARLENE Administration Labetalol HCl 350 mg 04/24/20 21:00 04/26/20 20:12 Labetalol 100 Mg Tab PO 350 mg BID DARLENE Administration Lidocaine 1 patch 04/24/20 09:00 04/26/20 08:43 Lidocaine 5% Patch TD 1 patch DAILY DARLENE Administration Lisinopril 40 mg 04/25/20 09:00 04/27/20 12:24 Lisinopril 20 Mg Tab PO 40 mg DAILY DARLENE Administration Miscellaneous Medication 1 each 04/24/20 21:00 04/26/20 20:04 Lidocaine Patch Removal TOP Not Given 2100 [facility] Morphine Sulfate 2 mg 04/24/20 12:03 04/26/20 17:35 Morphine 2 Mg/Ml Vial SLOW IVP 2 mg Q4H PRN Administration Moderate Pain (4-6) Tramadol HCl 50 mg 04/24/20 12:03 04/24/20 23:37 Tramadol Hcl 50 Mg Tab PO 50 mg Q12H PRN Administration Mild-Moderate Pain (1-5) Zolpidem Tartrate 5 mg 04/25/20 15:01 04/27/20 00:16 Zolpidem Tartrate 5 Mg Tab PO 5 mg HS PRN Administration Insomnia Hospitalist Exam Vitals: Vital Signs (12 hours) Temp Pulse Resp BP BP BP Pulse Ox 04/27/20 12:24 78 163/83 H 04/27/20 11:44 97.3 F L 78 16 163/83 H 98 04/27/20 07:26 98.3 F 78 15 129/66 97 04/27/20 04:19 98.5 F 84 14 137/63 94 L Weight Admit Weight 258 lb 6 oz Weight 258 lb 6 oz General Appearance: awake alert Neck: no JVD Heart: RRR, no murmur Respiratory: CTAB Gastrointestinal: soft, normal bowel sounds Extremities: no edema Hosp A/P (1) Shoulder pain Code(s): M25.519 - PAIN IN UNSPECIFIED SHOULDER Status: Resolved Qualifiers: Chronicity: acute Laterality: right Qualified Code(s): M25.511 - Pain in right shoulder (2) Pulmonary embolism Code(s): I26.99 - OTHER PULMONARY EMBOLISM WITHOUT ACUTE COR PULMONALE Status: Acute Qualifiers: Chronicity: acute Acute cor pulmonale presence: without acute cor pulmonale (3) Diabetes mellitus type 2 in nonobese Code(s): E11.9 - TYPE 2 DIABETES MELLITUS WITHOUT COMPLICATIONS Status: Chronic (4) End stage renal disease on dialysis Code(s): N18.6 - END STAGE RENAL DISEASE; Z99.2 - DEPENDENCE ON RENAL DIALYSIS Status: Chronic (5) HTN (hypertension) Code(s): I10 - ESSENTIAL (PRIMARY) HYPERTENSION Status: Chronic Qualifiers: Hypertension type: renovascular hypertension Qualified Code(s): I15.0 - Renovascular hypertension (6) CVA (cerebral vascular accident) Code(s): I63.9 - CEREBRAL INFARCTION, UNSPECIFIED Status: Acute (7) Dysarthria Code(s): R47.1 - DYSARTHRIA AND ANARTHRIA Status: Acute - Plan cont anticoag cont routine HD mri REVEALS ACUTE INFARCT ECHO cardiagram ordered PT consult
[2020-04-27] MEDS: Lidocaine 5% Patch TD SCH (14:33)
--- NOTE | 2020-04-27 16:17 | PRG ---
DATE OF SERVICE: 04/27/2020 SUBJECTIVE: A 55-year-old gentleman, being seen for end-stage renal disease. The patient denied any nausea, vomiting, or chest pain. PHYSICAL EXAMINATION: GENERAL: The patient is awake and alert. VITAL SIGNS: Afebrile, pulse 78, breathing at 16, blood pressure 121/67. HEENT: Head normocephalic and atraumatic. Eyes intact, no ulcers. Nose intact, no ulcers. Ears intact, no ulcers. NECK: Supple. No JVD. CHEST: Symmetrical and clear. CARDIOVASCULAR: Shows S1 and S2, no rub, no murmur. GASTROINTESTINAL: Abdomen is soft, bowel sounds positive. EXTREMITIES: Show no edema or ulcers. SKIN: Shows no rash or petechiae. MUSCULOSKELETAL: Shows no joint swelling or stiffness. GENITOURINARY: Shows no Madsen or CVA tenderness. NEUROLOGIC: Motor intact. Cranial nerves intact. LABORATORY DATA: Reviewed. ASSESSMENT AND PLAN: 1. Stage 6 chronic kidney disease, stable. 2. Hypertension, stable. 3. Anemia, stable. Medication based on GFR appropriate. Job ID: [id number]
[2020-04-27] MEDS: Atorvastatin Calcium 40 MG TAB PO SCH (21:04)
[2020-04-27] MEDS: Lidocaine Patch Removal TOP SCH (21:06)
[2020-04-28] MEDS: Carvedilol 3.125 MG TAB PO SCH ×2 (09:46→20:20)
[2020-04-28] MEDS: Lisinopril 20 MG TAB PO SCH (09:47)
[2020-04-28] MEDS: Labetalol 100 MG TAB PO SCH ×2 (09:47→20:18)
[2020-04-28] MEDS: Amoxicillin/Potassium Clav 500 MG TAB PO SCH ×2 (09:48→20:20)
[2020-04-28] MEDS: hydrALAZINE 25 MG TAB PO SCH ×3 (09:48→20:19)
[2020-04-28] MEDS: Aspirin 325 MG TAB PO SCH (09:48)
[2020-04-28] MEDS: Apixaban 5 MG TAB PO SCH ×2 (09:48→20:19)
[2020-04-28] MEDS: Lidocaine 5% Patch TD SCH (09:48)
--- NOTE | 2020-04-28 13:16 | DIS ---
DATE OF ADMISSION: 04/24/2020 DATE OF DISCHARGE: 04/28/2020 DISPOSITION: Discharged home. FINAL DIAGNOSES: Acute pulmonary thromboembolism, cerebrovascular accident, end-stage renal disease, chronic kidney disease stage 3, diabetes mellitus type 2, hypertension. DISCHARGE MEDICATIONS: 1. New; Eliquis 5 mg p.o. b.i.d., aspirin 81 mg a day, Lipitor 40 mg a day. 2. Old; hydralazine 100 mg p.o. t.i.d., lisinopril 40 mg a day, labetalol 350 mg p.o. b.i.d., Coreg 3.125 mg twice a day. DIET: Diabetic. CODE STATUS: Full. ALLERGIES: NONE. HOSPITAL COURSE: The patient admitted through the emergency room to [facility]. He presented with right shoulder pain. He was found to have an acute pulmonary embolus, elevated troponins consistent with his chronic renal failure. He was started on Eliquis. Neurology consult placed. The patient had an amputation of his great toe in the past. Consultations were with Marnie Boo, Nephrology; Rahul Mitchell, General Surgery. Dr. Marnie Boo managed his three times weekly therapy. His pulmonary embolus was documented on CT of the thorax with pulmonary thromboembolism involving distal branches of left lower lobe. During his hospital stay, he had echocardiogram which was unremarkable. experienced dysarthria. Brain CT was unremarkable. His MRI showed an acute lacunar in the left basal ganglia. Aspirin was added to the Eliquis. His dysarthria slowly improved. During his hospital stay, he was seen by Dr. Mitchell postoperative 14 days from the right great toe amputation. At the time of discharge, he is going to continue his wound care. He does not have a PCP. Nursing services has done processing of getting him a name of a [facility] physician to go to. He will be given a 30-day coupon for his Eliquis. Blood studies done during his hospital stay included serial Accu-Cheks which were essentially normal without specific therapy. His troponins were 0.08, 0.08, 0.07. His initial sodium 142, potassium 4.4, BUN 49, creatinine 9.51. CBC; white count 8.3, hemoglobin 10.3, platelet count 405,000. D-dimer was 1.83 and COVID test was negative. At the time of discharge, the patient still has a modest dysarthria but is improving rapidly. His neurological exam is normal. Other than that, he will be continuing wound care. He will be followed up by PCP in 3 to 7 days. He will continue his three times weekly hemodialysis. He will need to be on the Eliquis 6 months. Job ID: [id number] [facility]
--- NOTE | 2020-04-28 15:16 | PRG ---
DATE OF SERVICE: SUBJECTIVE: A 55-year-old gentleman, being seen for end-stage renal disease. The patient denied any nausea, vomiting, or chest pain. PHYSICAL EXAMINATION: GENERAL: Awake, alert. VITAL SIGNS: Afebrile, pulse 85, breathing at 16, blood pressure 127/69. HEENT: Head normocephalic and atraumatic. Eyes intact, no ulcers. Nose intact, no ulcers. Ears intact, no ulcers. NECK: Supple. No JVD. CHEST: Symmetrical and clear. CARDIOVASCULAR: Shows S1 and S2, no rub, no murmur. GASTROINTESTINAL: Abdomen is soft, bowel sounds positive. EXTREMITIES: Show no edema or ulcers. SKIN: Shows no rash or petechiae. MUSCULOSKELETAL: Shows no joint swelling or stiffness. GENITOURINARY: Shows no Madsen or CVA tenderness. NEUROLOGIC: Motor intact. Cranial nerves intact. LABORATORY DATA: Reviewed. ASSESSMENT: 1. Chronic kidney disease stage 6, stable. 2. Hypertension, stable. 3. Anemia, stable. PLAN: Medication based on GFR appropriate. Job ID: [id number]
--- NOTE | 2020-04-28 17:04 | PDOC.BPN ---
- Brief Progress Note Encounter Date: 04/28/20 Encounter Time: 17:02 patient discharged. his desire. siste comes in , demands he stay as he is not safe. cancelled DC. Rehab referral at sisters request ,, he did agree to it
--- NOTE | 2020-04-28 17:32 | PDOC.HOSPP ---
- Subjective Encounter Date: 04/28/20 Encounter Time: 17:28 Subjective: speech improved. walking unassisted - Objective Vital Signs & Weight: Vital Signs (12 hours) Temp Pulse Pulse Pulse Resp BP BP 04/28/20 15:22 84 134/63 04/28/20 13:52 98.1 F 88 23 H 04/28/20 10:20 75 79 142/68 H 04/28/20 09:47 78 123/69 04/28/20 07:30 98.2 F 78 17 BP BP Pulse Ox 04/28/20 15:22 04/28/20 13:52 127/69 95 04/28/20 10:20 157/75 H 04/28/20 09:47 04/28/20 07:30 142/63 H 95 Weight Admit Weight 258 lb 6 oz Weight 258 lb 6 oz I&O: 04/27/20 04/28/20 04/29/20 06:59 06:59 06:59 Intake Total 1087 957 120 Output Total 0 2900 Balance 1087 -1943 120 Result Diagrams: 04/26/20 01:35 04/26/20 01:35 Additional Labs: Accuchecks 04/28/20 04/28/20 04/28/20 17:02 10:50 06:00 POC Glucose 77 106 H 112 H Hospitalist ROS - Medication Medications: Active Medications Generic Name Dose Route Start Last Admin Trade Name Freq PRN Reason Stop Dose Admin Acetaminophen 650 mg 04/23/20 22:38 04/27/20 06:30 Acetaminophen 325 Mg Tab PO 650 mg Q4H PRN Administration Headache/Fever/Mild Pain (1-3) Amoxicillin/Clavulanate Potassium 500 mg 04/24/20 21:00 04/28/20 09:48 Amoxicillin/Potassium Clav 500 Mg Tab PO 05/01/20 21:01 500 mg BID DARLENE Administration Apixaban 5 mg 04/24/20 09:00 04/28/20 09:48 Apixaban 5 Mg Tab PO 5 mg BID DARLENE Administration Aspirin 325 mg 04/27/20 09:00 04/28/20 09:48 Aspirin 325 Mg Tab PO 325 mg DAILY DARLENE Administration Atorvastatin Calcium 40 mg 04/26/20 21:00 04/27/20 21:04 Atorvastatin Calcium 40 Mg Tab PO 40 mg HS DARLENE Administration Carvedilol 3.125 mg 04/24/20 21:00 04/28/20 09:46 Carvedilol 3.125 Mg Tab PO Not Given BID DARLENE Hydralazine HCl 100 mg 04/24/20 21:00 04/28/20 15:22 Hydralazine 25 Mg Tab PO 100 mg TID DARLENE Administration Labetalol HCl 350 mg 04/24/20 21:00 04/28/20 09:47 Labetalol 100 Mg Tab PO Not Given BID DARLENE Lidocaine 1 patch 04/24/20 09:00 04/28/20 09:48 Lidocaine 5% Patch TD 1 patch DAILY DARLENE Administration Lisinopril 40 mg 04/25/20 09:00 04/28/20 09:47 Lisinopril 20 Mg Tab PO Not Given DAILY [facility] Miscellaneous Medication 1 each 04/24/20 21:00 04/27/20 21:06 Lidocaine Patch Removal TOP 1 each 2100 DARLENE Administration Morphine Sulfate 2 mg 04/24/20 12:03 04/27/20 14:27 Morphine 2 Mg/Ml Vial SLOW IVP 2 mg Q4H PRN Administration Moderate Pain (4-6) Tramadol HCl 50 mg 04/24/20 12:03 04/24/20 23:37 Tramadol Hcl 50 Mg Tab PO 50 mg Q12H PRN Administration Mild-Moderate Pain (1-5) Zolpidem Tartrate 5 mg 04/25/20 15:01 04/27/20 21:07 Zolpidem Tartrate 5 Mg Tab PO 5 mg HS PRN Administration Insomnia Hospitalist Exam Vitals: Vital Signs (12 hours) Temp Pulse Pulse Pulse Resp BP BP 04/28/20 15:22 84 134/63 04/28/20 13:52 98.1 F 88 23 H 04/28/20 10:20 75 79 142/68 H 04/28/20 09:47 78 123/69 04/28/20 07:30 98.2 F 78 17 BP BP Pulse Ox 04/28/20 15:22 04/28/20 13:52 127/69 95 04/28/20 10:20 157/75 H 04/28/20 09:47 04/28/20 07:30 142/63 H 95 Weight Admit Weight 258 lb 6 oz Weight 258 lb 6 oz General Appearance: awake alert Neck: no JVD Heart: RRR Respiratory: CTAB Gastrointestinal: soft, normal bowel sounds Extremities: no edema Extremities - other findings: R foot wrapped by wound care Hosp A/P (1) Shoulder pain Code(s): M25.519 - PAIN IN UNSPECIFIED SHOULDER Status: Resolved Qualifiers: Chronicity: acute Laterality: right Qualified Code(s): M25.511 - Pain in right shoulder (2) Pulmonary embolism Code(s): I26.99 - OTHER PULMONARY EMBOLISM WITHOUT ACUTE COR PULMONALE Status: Acute Qualifiers: Chronicity: acute Acute cor pulmonale presence: without acute cor pulmonale (3) Diabetes mellitus type 2 in nonobese Code(s): E11.9 - TYPE 2 DIABETES MELLITUS WITHOUT COMPLICATIONS Status: Chronic (4) End stage renal disease on dialysis Code(s): N18.6 - END STAGE RENAL DISEASE; Z99.2 - DEPENDENCE ON RENAL DIALYSIS Status: Chronic (5) HTN (hypertension) Code(s): I10 - ESSENTIAL (PRIMARY) HYPERTENSION Status: Chronic Qualifiers: Hypertension type: renovascular hypertension Qualified Code(s): I15.0 - Renovascular hypertension (6) CVA (cerebral vascular accident) Code(s): I63.9 - CEREBRAL INFARCTION, UNSPECIFIED Status: Acute (7) Dysarthria Code(s): R47.1 - DYSARTHRIA AND ANARTHRIA Status: Acute - Plan cont eliquis x 3-6m0s for PE cont ASA/statin for CVA cont wound care appointments cont 3x weekly HD cont BP meds DC to home completed. he declined Rehab
[2020-04-28] MEDS: Atorvastatin Calcium 40 MG TAB PO SCH (20:20)
[2020-04-28] MEDS: Zolpidem Tartrate 5 MG TAB PO PRN (20:20)
[2020-04-28] MEDS: Lidocaine Patch Removal TOP SCH (20:20)
[2020-04-29] MEDS: Morphine 2 MG/ML VIAL SLOW IVP PRN (00:39)
[2020-04-29 11:34] LABS: Anion Gap 19 mmol/L (10-20); BUN (Urea Nitrogen) 56 mg/dL (8.4-25.7); Calc. Creatinine Clearance 11 mL/min (70-130); Calcium 8.6 mg/dL (7.8-10.44); Carbon Dioxide 25 mmol/L (22-29); Chloride 96 mmol/L (98-107); Glucose 167 mg/dL (70-105); Potassium 4.2 mmol/L (3.5-5.1); Sodium 136 mmol/L (136-145)
[2020-04-29 11:41] LABS: Mean Corpuscular HGB CONC 32.1 g/dL (32.0-36.0); Mean Corpuscular Hemoglobin 30.3 pg (27.0-31.0); Mean Corpuscular Volume 94.3 fL (78.0-98.0); Mean Platelet Volume 6.9 fL (7.4-10.4); Platelet Count 255 thou/uL (130-400); RBC Distribution Width 14.5 % (11.5-14.5); Red Blood Cell (RBC) Count 3.32 mill/uL (4.70-6.10); White Blood Cell (WBC) Count 7.3 thou/uL (4.8-10.8)
[2020-04-29 11:55] LABS: MDiff Complete? YES; RBC Morphology Normal
[2020-04-29 12:05] LABS: Band 5 % (5-11); Neutrophil 69 % (42-75)
[2020-04-29 12:06] LABS: Eosinophils 1 % (0-10); Lymphocytes 17 % (21-51); Monocytes 7 % (0-10); Platelet Morphology Comment Appears Adequate; Reactive Lymphocytes 1 % (0-10)
[2020-04-29 12:07] LABS: Polychromasia SLIGHT = 2-3 cells (100X) (0-2/hpf)
[2020-04-29] MEDS: traMADol HCl 50 MG TAB PO PRN (12:17)
[2020-04-29] MEDS: Lidocaine 5% Patch TD SCH (12:17)
--- NOTE | 2020-04-29 12:17 | PRG ---
DATE OF SERVICE: 04/29/2020 SUBJECTIVE: A 55-year-old gentleman, being seen for end-stage renal disease. The patient denied nausea, vomiting, or chest pain. OBJECTIVE: GENERAL: The patient is awake and alert. VITAL SIGNS: Afebrile, pulse 75, breathing at 16, blood pressure 129/72. HEENT: Head normocephalic and atraumatic. Eyes intact, no ulcers. Nose intact, no ulcers. Ears intact, no ulcers. NECK: Supple. No JVD. CHEST: Symmetrical and clear. CARDIOVASCULAR: Shows S1 and S2, no rub, no murmur. GASTROINTESTINAL: Abdomen is soft, bowel sounds positive. EXTREMITIES: Show no edema or ulcers. SKIN: Shows no rash or petechiae. MUSCULOSKELETAL: Shows no joint swelling or stiffness. GENITOURINARY: Shows no Madsen or CVA tenderness. NEUROLOGIC: Motor intact. Cranial nerves intact. LABORATORY DATA: Hemoglobin 11.1, creatinine is 9.2. ASSESSMENT AND PLAN: 1. Chronic kidney disease, stage 6, stable. 2. Hypertension, stable. 3. Anemia, stable. 4. Medication based on GFR, appropriate. Job ID: [id number]
--- NOTE | 2020-04-29 13:31 | PDOC.DS.DS ---
Provider Date of Admission: 04/24/20 17:57 Date of Discharge: 04/29/20 Admitting Provider: Rip Andrews MD Consultations: Nephrology (Dr. Pierre) Primary Care Physician: NO PCP PROVIDER Course Hospital Course: Discharge diagnosis: 1. Pulmonary embolism 2. Cerebrovascular accident 3. End-stage renal disease on hemodialysis 4. COVID-19 test negative Hospital course: Patient is a pleasant 55-year-old gentleman who was admitted to the hospital on April 24, 2020 for right shoulder pain secondary to acute pulmonary embolism. He was started on Eliquis. During this hospitalization, he experienced dysarthria. MRI of the brain showed an acute lacunar infarct in the left basal ganglia. Dysarthria improved. He was also seen by general surgery service because he was postoperative 14 days from right great toe amputation. He is being discharged to inpatient rehab for further management. Many thanks for allowing me to participate in your patient's care. Please feel free to contact me with any questions or concerns. Discharge destination: Inpatient rehab Total amount of time spent coordinating this discharge: 32 minutes Resuscitation Status: 04/23/20 22:37 Resuscitation Status Routine Co-Sign Provider: Resuscitation Status: FULL: Full Resuscitation Lab Results: 04/29/20 10:55 04/29/20 10:55 Abnormal Lab Results - Last 48 hrs 04/29/20 10:55: Chloride 96 L, BUN 56 H, Creatinine 12.58 H 04/29/20 10:55: RBC 3.32 L, Hgb 10.0 L, Hct 31.3 L, MPV 6.9 L, Lymphocytes % (Manual) 17 L Vitals: Vital Signs (12 hours) Temp Pulse Pulse Pulse Resp BP BP 04/29/20 12:15 97.8 F 84 20 04/29/20 09:22 78 129/72 04/29/20 08:51 75 131/75 04/29/20 07:45 98.4 F 74 18 04/29/20 03:31 98.4 F 80 18 BP BP Pulse Ox 04/29/20 12:15 150/72 H 95 04/29/20 09:22 04/29/20 08:51 04/29/20 07:45 133/66 96 04/29/20 03:31 143/70 H 95 Weight Admit Weight 258 lb 6 oz Weight 258 lb 6 oz Physical Exam: The patient was seen and examined on the day of discharge. Patient denies chest pain or shortness of breath. Vital signs are stable. S1 and S2 are heard. Lungs are clear to auscultation bilaterally. Plan Prescriptions: Apixaban [Eliquis] 5 mg PO BID #60 tab Atorvastatin Calcium [Lipitor] 40 mg PO HS #30 tab Home Medications: Medication Instructions Recorded Confirmed Type Labetalol [Normodyne] 350 mg PO BID 03/05/16 04/24/20 History Lisinopril 40 mg PO DAILY 03/05/16 04/24/20 History hydrALAZINE [Apresoline] 100 mg PO TID 01/24/17 04/24/20 History Carvedilol [Coreg] 1 tab PO BID 04/10/20 04/24/20 History Apixaban [Eliquis] 5 mg PO BID #60 tab 04/28/20 Rx Atorvastatin Calcium [Lipitor] 40 mg PO HS #30 tab 04/28/20 Rx Apixaban [Eliquis] 10 mg PO BID tab 04/29/20 Rx Allergies: No Known Allergies Allergy (Verified 04/24/20 05:16) Discharge Instructions:: needs PCP for FU APIXABAN 10 MG TWO TIMES A DAY X 7 DAYS, THEN 5 MG TWO TIMES A DAY Activity:: Activity as Tolerated Nourishment:: Heart Healthy Diet Referrals: [facility], [facility] [Other] (inpatient rehab admit.) Teresa Neal MD [Active] - (Accept[facility]cp [facility] PROVIDER,NO PCP [Primary Care Provider] - Disposition: HOME
[2020-04-29] MEDS: Carvedilol 3.125 MG TAB PO SCH (13:51)
[2020-04-29] MEDS: hydrALAZINE 25 MG TAB PO SCH ×2 (13:51→16:32)
[2020-04-29] MEDS: Labetalol 100 MG TAB PO SCH (13:52)
[2020-04-29] MEDS: Lisinopril 20 MG TAB PO SCH (16:30)
[2020-04-29] MEDS: Apixaban 5 MG TAB PO SCH (16:32)
[2020-04-29] MEDS: Amoxicillin/Potassium Clav 500 MG TAB PO SCH (16:32)
[2020-04-29] MEDS: Aspirin 325 MG TAB PO SCH (16:32)
[2020-04-29 19:22] VITALS: BP 140/74; TEMP 97.9
[2020-04-29] MEDS ORDERED: Apixaban 5 MG TAB PO SCH (21:00)
== END 2020-04-29 19:55 | DRG 175 ==
LOC: ERS 18:28 → ERHOLD 20:44 → 2NO 04-24 03:52 → OBSVTOIN 04-24 17:57
PROVIDERS: ADMIT Internal Medicine; ATTEND Internal Medicine
PROC: 5A1D70Z Performance of Urinary Filtration, Intermittent, Less than 6 Hours Per Day (ICD-10-PCS; principal; 2020-04-25)
DX: I26.99 Other pulmonary embolism without acute cor pulmonale (principal); N18.6 End stage renal disease; I63.81 Other cerebral infarction due to occlusion or stenosis of small artery; I12.0 Hypertensive chronic kidney disease with stage 5 chronic kidney disease or end stage renal disease; R77.8 Other specified abnormalities of plasma proteins; D63.1 Anemia in chronic kidney disease; E66.9 Obesity, unspecified; E11.22 Type 2 diabetes mellitus with diabetic chronic kidney disease; Z20.822 Contact with and (suspected) exposure to COVID-19; R47.1 Dysarthria and anarthria; Z89.411 Acquired absence of right great toe; Z99.2 Dependence on renal dialysis; Z68.35 Body mass index [BMI] 35.0-35.9, adult
CPT/HCPCS: 36415; 36416; 70450; 70551; 71045; 71275; 80048; 80053; 82553; 83605; 83690; 83735; 84484; 84550; 85007; 85025; 85027; 85379; 87635; 90935; 93005; 93306; 96374; 96376; G0257; J1644; J2270; Q9967; U0003; U0005

== ENCOUNTER 2020-06-15 21:06 | Emergency (ER) | payer MEDICARE | END 2020-06-15 23:16 | disposition home or self-care (01) | LOC: ERS 21:06 | DX: T82.838A Hemorrhage due to vascular prosthetic devices, implants and grafts, initial encounter (principal); E11.22 Type 2 diabetes mellitus with diabetic chronic kidney disease; I12.0 Hypertensive chronic kidney disease with stage 5 chronic kidney disease or end stage renal disease; N18.6 End stage renal disease | CPT/HCPCS: 99283 ==

== ENCOUNTER 2020-08-13 20:58 | Inpatient (IN) | payer MEDICARE ==
[2020-08-13] MEDS ORDERED: cloNIDine 0.1 MG TAB ONE (22:35)
[2020-08-13 22:36] LABS: #Eosinphils 0.4 thou/uL (0.0-0.7); #Lymphocytes 1.6 thou/uL (1.20-3.40); #Monocytes 0.7 thou/uL (0.11-0.59); #Neutrophils 3.1 thou/uL (1.40-6.50); %Basophils 0.4 % (0.0-1.0); %Eosinophils 7.4 % (0.0-10.0); %Lymphocytes 27.9 % (21.0-51.0); %Monocytes 11.7 % (0.0-10.0); %Neutrophils 52.7 % (42.0-75.0); Hemoglobin 8.5 g/dL (14.0-18.0); Mean Corpuscular HGB CONC 32.6 g/dL (32.0-36.0); Mean Corpuscular Hemoglobin 30.4 pg (27.0-31.0); Mean Corpuscular Volume 93.2 fL (78.0-98.0); Mean Platelet Volume 7.6 fL (7.4-10.4); Platelet Count 217 thou/uL (130-400); RBC Distribution Width 14.8 % (11.5-14.5); Red Blood Cell (RBC) Count 2.79 mill/uL (4.70-6.10); White Blood Cell (WBC) Count 5.8 thou/uL (4.8-10.8)
[2020-08-13 22:58] LABS: ALT (SGPT) Less than 7 U/L (8-55); AST (SGOT) 12 U/L (5-34); Albumin 3.7 g/dL (3.5-5.0); Alkaline Phosphatase 79 U/L (40-110); Anion Gap 14 mmol/L (10-20); BUN (Urea Nitrogen) 41 mg/dL (8.4-25.7); Bilirubin, Total 0.5 mg/dL (0.2-1.2); Calc. Creatinine Clearance 0 mL/min (70-130); Calcium 8.9 mg/dL (7.8-10.44); Carbon Dioxide 36 mmol/L (22-29); Chloride 97 mmol/L (98-107); Globulin 4.5 g/dL (2.4-3.5); Glucose 70 mg/dL (70-105); Potassium 3.6 mmol/L (3.5-5.1); Protein, Total 8.2 g/dL (6.0-8.3); Sodium 143 mmol/L (136-145)
[2020-08-13 23:19] LABS: CKMB 1.2 ng/mL (0-6.6)
[2020-08-13] MEDS ORDERED: Aspirin 325 MG TAB ONE (23:44)
[2020-08-13] MEDS ORDERED: Nitroglycerin 2% Ointment 1 INCH/1 GM Packet ONE (23:44)
[2020-08-14] MEDS ORDERED: hydrALAZINE 20 MG/ML VIAL ONE (00:11)
[2020-08-14] MEDS ORDERED: Acetaminophen 325 MG TAB PO PRN (00:11)
[2020-08-14] MEDS ORDERED: Lisinopril 10 MG TAB ONE (00:11)
[2020-08-14] MEDS ORDERED: Nitroglycerin 0.4 MG TAB (25 Tab Bottle) SL PRN (00:18)
[2020-08-14 01:54] LABS: Iron 37 ug/dL (65-175); Iron Binding Capacity, Total 163 mcg/dL (261-462)
[2020-08-14 01:58] LABS: Troponin I 0.109 ng/mL (< 0.028)
[2020-08-14] MEDS ORDERED: hydrALAZINE 25 MG TAB PO SCH (02:15)
[2020-08-14 02:40] LABS: SARS-CoV-2 NAA Rapid Test Not Detected (NotDetected)
[2020-08-14 02:54] LABS: Ferritin 565.55 ng/mL (22-322)
[2020-08-14] MEDS ORDERED: cloNIDine 0.1 MG TAB PO SCH (03:00)
[2020-08-14 05:19] LABS: #Eosinphils 0.4 thou/uL (0.0-0.7); #Lymphocytes 1.3 thou/uL (1.20-3.40); #Monocytes 0.5 thou/uL (0.11-0.59); #Neutrophils 2.8 thou/uL (1.40-6.50); %Basophils 0.3 % (0.0-1.0); %Eosinophils 7.8 % (0.0-10.0); %Monocytes 10.4 % (0.0-10.0); %Neutrophils 55.6 % (42.0-75.0); Hemoglobin 7.7 g/dL (14.0-18.0); Mean Corpuscular HGB CONC 31.6 g/dL (32.0-36.0); Mean Corpuscular Hemoglobin 29.2 pg (27.0-31.0); Mean Corpuscular Volume 92.6 fL (78.0-98.0); Mean Platelet Volume 7.5 fL (7.4-10.4); Platelet Count 202 thou/uL (130-400); RBC Distribution Width 15.1 % (11.5-14.5); Red Blood Cell (RBC) Count 2.63 mill/uL (4.70-6.10); White Blood Cell (WBC) Count 5.1 thou/uL (4.8-10.8)
[2020-08-14 05:33] LABS: Anion Gap 11 mmol/L (10-20); BUN (Urea Nitrogen) 46 mg/dL (8.4-25.7); Calc. Creatinine Clearance 12 mL/min (70-130); Calcium 8.4 mg/dL (7.8-10.44); Carbon Dioxide 36 mmol/L (22-29); Cardiac Risk 2.9 (Less than 4.5); Chloride 97 mmol/L (98-107); Cholesterol 103 mg/dl (< 200 Desired); Glucose 156 mg/dL (70-105); HDL Cholesterol 35 mg/dL (>60 Neg Risk); LDL Cholesterol, Calculated 56 mg/dL; Potassium 3.1 mmol/L (3.5-5.1); Sodium 141 mmol/L (136-145); Triglycerides 59 mg/dL (Less than 150)
[2020-08-14 05:38] LABS: Troponin I 0.111 ng/mL (< 0.028)
[2020-08-14] MEDS ORDERED: Potassium Chloride 20 MEQ TAB PO SCH (06:30)
[2020-08-14] MEDS: Apixaban 5 MG TAB PO SCH ×2 (08:46→20:14)
[2020-08-14] MEDS: Lisinopril 20 MG TAB PO SCH (08:46)
[2020-08-14] MEDS: hydrALAZINE 25 MG TAB PO SCH ×3 (08:46→20:14)
[2020-08-14] MEDS ORDERED: Labetalol 100 MG TAB PO SCH (10:30)
[2020-08-14 13:05] LABS: HBSAg Index 0.19 S/CO (0-0.99); Hep B Surf Ag Non-Reactive S/CO (NonReactive)
[2020-08-14 20:04] LABS: Hemoglobin 9.2 g/dL (14.0-18.0)
[2020-08-14] MEDS: Atorvastatin Calcium 40 MG TAB PO SCH (20:14)
[2020-08-14] MEDS: Labetalol 100 MG TAB PO SCH (20:14)
[2020-08-14] MEDS ORDERED: Prevnar 13-Val Conj/PF 0.5 ML SYRINGE IM ONE (21:00)
[2020-08-14 21:38] LABS: Hemoglobin 8.9 g/dL (14.0-18.0); Platelet Count 214 thou/uL (130-400)
[2020-08-15] MEDS: hydrALAZINE 20 MG/ML VIAL SLOW IVP PRN ×2 (00:08→04:04)
[2020-08-15] MEDS: cloNIDine 0.1 MG TAB PO PRN ×2 (01:53→18:02)
[2020-08-15 05:07] LABS: #Eosinphils 0.4 thou/uL (0.0-0.7); #Lymphocytes 1.6 thou/uL (1.20-3.40); #Monocytes 0.6 thou/uL (0.11-0.59); #Neutrophils 3.3 thou/uL (1.40-6.50); %Basophils 0.3 % (0.0-1.0); %Eosinophils 7.2 % (0.0-10.0); %Monocytes 10.4 % (0.0-10.0); %Neutrophils 55.1 % (42.0-75.0); Hemoglobin 8.9 g/dL (14.0-18.0); Mean Corpuscular Hemoglobin 28.7 pg (27.0-31.0); Mean Corpuscular Volume 89.7 fL (78.0-98.0); Mean Platelet Volume 7.8 fL (7.4-10.4); Platelet Count 217 thou/uL (130-400); RBC Distribution Width 15.8 % (11.5-14.5); Red Blood Cell (RBC) Count 3.09 mill/uL (4.70-6.10); White Blood Cell (WBC) Count 5.9 thou/uL (4.8-10.8)
[2020-08-15 05:22] LABS: Anion Gap 14 mmol/L (10-20); BUN (Urea Nitrogen) 38 mg/dL (8.4-25.7); Calc. Creatinine Clearance 13 mL/min (70-130); Carbon Dioxide 31 mmol/L (22-29); Chloride 98 mmol/L (98-107); Glucose 95 mg/dL (70-105); Potassium 3.6 mmol/L (3.5-5.1); Sodium 139 mmol/L (136-145)
[2020-08-15] MEDS: Lisinopril 20 MG TAB PO SCH (06:30)
[2020-08-15] MEDS ORDERED: Ondansetron ODT 4 MG TAB PO PRN (10:36)
[2020-08-15] MEDS: hydrALAZINE 25 MG TAB PO SCH ×3 (11:18→20:22)
[2020-08-15] MEDS: Labetalol 100 MG TAB PO SCH (11:19)
[2020-08-15] MEDS: Apixaban 5 MG TAB PO SCH ×2 (12:17→20:22)
[2020-08-15 14:09] LABS: Magnesium 2.1 mg/dL (1.6-2.6)
[2020-08-15 14:15] VITALS: BMI 31.8
[2020-08-15] MEDS: Atorvastatin Calcium 40 MG TAB PO SCH (20:22)
[2020-08-16] MEDS: cloNIDine 0.1 MG TAB PO PRN (03:31)
[2020-08-16 05:40] LABS: #Eosinphils 0.4 thou/uL (0.0-0.7); #Lymphocytes 1.4 thou/uL (1.20-3.40); #Monocytes 0.7 thou/uL (0.11-0.59); #Neutrophils 4.3 thou/uL (1.40-6.50); %Basophils 0.5 % (0.0-1.0); %Lymphocytes 20.3 % (21.0-51.0); %Monocytes 10.4 % (0.0-10.0); %Neutrophils 62.8 % (42.0-75.0); Mean Corpuscular HGB CONC 32.6 g/dL (32.0-36.0); Mean Corpuscular Hemoglobin 29.7 pg (27.0-31.0); Mean Corpuscular Volume 91.2 fL (78.0-98.0); Mean Platelet Volume 7.8 fL (7.4-10.4); Platelet Count 248 thou/uL (130-400); RBC Distribution Width 15.6 % (11.5-14.5); Red Blood Cell (RBC) Count 3.36 mill/uL (4.70-6.10); White Blood Cell (WBC) Count 6.8 thou/uL (4.8-10.8)
[2020-08-16 06:03] LABS: Anion Gap 15 mmol/L (10-20); BUN (Urea Nitrogen) 29 mg/dL (8.4-25.7); Calc. Creatinine Clearance 15 mL/min (70-130); Calcium 9.4 mg/dL (7.8-10.44); Carbon Dioxide 28 mmol/L (22-29); Chloride 98 mmol/L (98-107); Glucose 102 mg/dL (70-105); Potassium 3.8 mmol/L (3.5-5.1); Sodium 137 mmol/L (136-145)
[2020-08-16] MEDS ORDERED: Regadenoson 0.4 MG/5 ML SYRINGE ONE (08:26)
[2020-08-16] MEDS: Lisinopril 20 MG TAB PO SCH ×2 (08:29→20:36)
[2020-08-16] MEDS: hydrALAZINE 25 MG TAB PO SCH ×3 (08:29→20:35)
[2020-08-16] MEDS: Apixaban 5 MG TAB PO SCH ×2 (08:29→20:36)
[2020-08-16] MEDS ORDERED: NIFEdipine XL 30 MG TAB PO SCH (09:30)
[2020-08-16] MEDS ORDERED: Labetalol 100 MG TAB PO SCH (12:15)
[2020-08-16] MEDS: NIFEdipine XL 60 MG TAB PO SCH (20:33)
[2020-08-16] MEDS: Labetalol 100 MG TAB PO SCH (20:34)
[2020-08-16] MEDS: Atorvastatin Calcium 40 MG TAB PO SCH (20:38)
[2020-08-17 07:29] LABS: Calcium 9.1 mg/dL (7.8-10.44); Chloride 99 mmol/L (98-107); Potassium 3.6 mmol/L (3.5-5.1); Sodium 137 mmol/L (136-145)
[2020-08-17 07:30] LABS: Glucose 117 mg/dL (70-105)
[2020-08-17 07:32] LABS: Anion Gap 15 mmol/L (10-20); Carbon Dioxide 27 mmol/L (22-29)
[2020-08-17 07:33] LABS: Calc. Creatinine Clearance 11 mL/min (70-130)
[2020-08-17 07:34] LABS: BUN (Urea Nitrogen) 46 mg/dL (8.4-25.7)
[2020-08-17] MEDS: Labetalol 100 MG TAB PO SCH ×2 (08:49→20:00)
[2020-08-17] MEDS: NIFEdipine XL 60 MG TAB PO SCH ×2 (08:49→20:01)
[2020-08-17] MEDS: Lisinopril 20 MG TAB PO SCH ×2 (08:50→20:02)
[2020-08-17] MEDS: hydrALAZINE 25 MG TAB PO SCH ×3 (08:50→20:01)
[2020-08-17] MEDS: Apixaban 5 MG TAB PO SCH ×2 (08:50→20:01)
[2020-08-17] MEDS ORDERED: NIFEdipine XL 30 MG TAB PO SCH (09:00)
[2020-08-17] MEDS: Atorvastatin Calcium 40 MG TAB PO SCH (20:02)
[2020-08-17 20:53] VITALS: BP 172/81; TEMP 99
== END 2020-08-17 20:45 | disposition home or self-care (01) | DRG 304 ==
LOC: ERS 20:58 → 2SW 08-14 00:08 → OBSVTOIN 08-16 10:19
PROVIDERS: ADMIT Family Medicine; ATTEND Family Medicine
PROC: 30233N1 Transfusion of Nonautologous Red Blood Cells into Peripheral Vein, Percutaneous Approach (ICD-10-PCS; principal; 2020-08-16)
PROC: 5A1D70Z Performance of Urinary Filtration, Intermittent, Less than 6 Hours Per Day (ICD-10-PCS; 2020-08-17)
DX: I16.0 Hypertensive urgency (principal); N18.6 End stage renal disease; I69.951 Hemiplegia and hemiparesis following unspecified cerebrovascular disease affecting right dominant side; E87.3 Alkalosis; I42.9 Cardiomyopathy, unspecified; R07.89 Other chest pain; Z20.822 Contact with and (suspected) exposure to COVID-19; E11.22 Type 2 diabetes mellitus with diabetic chronic kidney disease; D63.1 Anemia in chronic kidney disease; E87.6 Hypokalemia; I12.0 Hypertensive chronic kidney disease with stage 5 chronic kidney disease or end stage renal disease; Z99.2 Dependence on renal dialysis; Z86.711 Personal history of pulmonary embolism; Z79.01 Long term (current) use of anticoagulants; Z79.899 Other long term (current) drug therapy; Z89.412 Acquired absence of left great toe; Z89.411 Acquired absence of right great toe
CPT/HCPCS: 36415; 36430; 71045; 78452; 80048; 80053; 80061; 82553; 82607; 82728; 82746; 83036; 83540; 83550; 83690; 83735; 84100; 84443; 84484; 85025; 86850; 86900; 86901; 87340; 90471; 90670; 90935; 93005; 93017; 93306; 96374; 96376; A9500; G0009; G0257; G0378; J0360; J2785; P9016; U0002; U0005

== ENCOUNTER 2020-08-21 09:03 | Inpatient (IN) | payer MEDICARE ==
[2020-08-21] MEDS ORDERED: Fentanyl 100 MCG/2 ML VIAL ONE (09:23)
[2020-08-21 09:33] LABS: #Eosinphils 0.1 thou/uL (0.0-0.7); #Lymphocytes 1.3 thou/uL (1.20-3.40); %Basophils 0.3 % (0.0-1.0); %Eosinophils 0.5 % (0.0-10.0); %Lymphocytes 8.2 % (21.0-51.0); %Monocytes 6.5 % (0.0-10.0); %Neutrophils 84.5 % (42.0-75.0); Hemoglobin 10.1 g/dL (14.0-18.0); Mean Corpuscular HGB CONC 32.6 g/dL (32.0-36.0); Mean Corpuscular Hemoglobin 29.2 pg (27.0-31.0); Mean Corpuscular Volume 89.4 fL (78.0-98.0); Mean Platelet Volume 8.2 fL (7.4-10.4); Platelet Count 252 thou/uL (130-400); RBC Distribution Width 15.4 % (11.5-14.5); Red Blood Cell (RBC) Count 3.47 mill/uL (4.70-6.10); White Blood Cell (WBC) Count 15.4 thou/uL (4.8-10.8)
[2020-08-21 10:05] LABS: INR-International Normal Ratio 1.3; PTT 32.5 sec (22.9-36.1); Prothrombin Time 16.2 sec (12.0-14.7)
[2020-08-21] MEDS ORDERED: Cefepime 2 GM VIAL ONE (10:15)
[2020-08-21] MEDS ORDERED: Acetaminophen 500 MG TAB ONE (10:22)
[2020-08-21 10:31] LABS: ALT (SGPT) 9 U/L (8-55); AST (SGOT) 16 U/L (5-34); Alkaline Phosphatase 83 U/L (40-110); Anion Gap 17 mmol/L (10-20); BUN (Urea Nitrogen) 47 mg/dL (8.4-25.7); Bilirubin, Total 0.4 mg/dL (0.2-1.2); Calc. Creatinine Clearance 0 mL/min (70-130); Calcium 9.6 mg/dL (7.8-10.44); Carbon Dioxide 27 mmol/L (22-29); Chloride 95 mmol/L (98-107); Globulin 5.1 g/dL (2.4-3.5); Glucose 132 mg/dL (70-105); Potassium 3.9 mmol/L (3.5-5.1); Protein, Total 9.1 g/dL (6.0-8.3); Sodium 135 mmol/L (136-145)
[2020-08-21] MEDS ORDERED: Vancomycin 1 GM/200 ML BAG ONE (10:55)
[2020-08-21] MEDS ORDERED: Ondansetron ODT 4 MG TAB PO PRN (11:09)
[2020-08-21] MEDS ORDERED: Ondansetron PF 4 MG/2 ML Vial IVP PRN (11:09)
[2020-08-21] MEDS ORDERED: Acetaminophen 650 MG Suppository PR PRN (11:09)
[2020-08-21] MEDS ORDERED: Acetaminophen 325 MG TAB PO PRN (11:09)
[2020-08-21] MEDS ORDERED: Morphine 4 MG/ML VIAL ONE (11:46)
[2020-08-21] MEDS ORDERED: Ibuprofen 800 MG TAB ONE (12:45)
[2020-08-21] MEDS: Acetaminophen 500 MG TAB PO SCH ×2 (15:26→18:31)
[2020-08-21] MEDS: hydrALAZINE 25 MG TAB PO SCH ×2 (15:26→21:56)
[2020-08-21] MEDS ORDERED: HOLD VANCOMYCIN FOR LEVEL >20 FS SCH (15:45)
[2020-08-21] MEDS ORDERED: Vancomycin 1 GM in Premix Bag 1 BAG IVPB SCH (15:45)
[2020-08-21] MEDS ORDERED: VANCOMYCIN 1.25 GM/250 ML BAG 1.25 GM in Premix Bag 1 BAG IVPB SCH (15:45)
[2020-08-21] MEDS ORDERED: Vancomycin 1.5 GRAM/300 ML BAG 1.5 GM in Premix Bag 1 BAG IVPB SCH (15:45)
[2020-08-21] MEDS ORDERED: Vancomycin HCl 750 MG in Sodium Chloride 0.9% 250 ML 250 ML IVPB SCH (15:45)
[2020-08-21] MEDS: HYDROcodone/Acetaminophen 5/325 mg Tablet PO PRN (18:32)
[2020-08-21 20:59] LABS: SARS-CoV-2 PCR by NAA Not Detected (NotDetected)
[2020-08-21] MEDS ORDERED: Apixaban 5 MG TAB PO SCH (21:00)
[2020-08-21] MEDS: Morphine 4 MG/ML VIAL SLOW IVP PRN (21:44)
[2020-08-21] MEDS: NIFEdipine XL 60 MG TAB PO SCH (21:56)
[2020-08-21] MEDS: Lisinopril 20 MG TAB PO SCH (21:56)
[2020-08-21] MEDS: Atorvastatin Calcium 40 MG TAB PO SCH (21:56)
[2020-08-21] MEDS: Acetaminophen 325 MG TAB PO PRN (23:01)
[2020-08-21] MEDS: Labetalol 100 MG TAB PO SCH (23:02)
[2020-08-22] MEDS: Morphine 4 MG/ML VIAL SLOW IVP PRN ×3 (01:40→13:20)
[2020-08-22] MEDS: hydrALAZINE 20 MG/ML VIAL SLOW IVP PRN ×2 (03:23→12:14)
[2020-08-22] MEDS: HYDROcodone/Acetaminophen 5/325 mg Tablet PO PRN (04:27)
[2020-08-22 06:26] LABS: Band 7 % (5-11); Eosinophils 1 % (0-10); Lymphocytes 7 % (21-51); MDiff Complete? YES; Mean Corpuscular HGB CONC 31.6 g/dL (32.0-36.0); Mean Corpuscular Hemoglobin 28.6 pg (27.0-31.0); Mean Corpuscular Volume 90.3 fL (78.0-98.0); Monocytes 6 % (0-10); Neutrophil 78 % (42-75); Platelet Count 255 thou/uL (130-400); RBC Distribution Width 15.3 % (11.5-14.5); Red Blood Cell (RBC) Count 3.14 mill/uL (4.70-6.10); White Blood Cell (WBC) Count 20.4 thou/uL (4.8-10.8)
[2020-08-22 06:52] LABS: Anion Gap 19 mmol/L (10-20); BUN (Urea Nitrogen) 62 mg/dL (8.4-25.7); Calc. Creatinine Clearance 8 mL/min (70-130); Calcium 8.8 mg/dL (7.8-10.44); Carbon Dioxide 22 mmol/L (22-29); Chloride 97 mmol/L (98-107); Glucose 95 mg/dL (70-105); Potassium 4.2 mmol/L (3.5-5.1); Sodium 134 mmol/L (136-145)
[2020-08-22] MEDS: Morphine 2 MG/ML VIAL SLOW IVP PRN (08:31)
[2020-08-22 08:42] LABS: Vancomycin, Random 10.2 ug/mL (See Comment)
[2020-08-22] MEDS: hydrALAZINE 25 MG TAB PO SCH ×4 (08:43→20:39)
[2020-08-22] MEDS: NIFEdipine XL 60 MG TAB PO SCH ×3 (08:43→20:39)
[2020-08-22] MEDS: Labetalol 100 MG TAB PO SCH ×3 (08:43→20:39)
[2020-08-22] MEDS: Lisinopril 20 MG TAB PO SCH ×3 (08:43→20:39)
[2020-08-22] MEDS ORDERED: Vancomycin 1 GM in Premix Bag 1 BAG IVPB SCH (10:30)
[2020-08-22] MEDS ORDERED: Senokot 8.6 MG TAB PO SCH (11:00)
[2020-08-22] MEDS ORDERED: Cefepime 2 GM in Sodium Chloride 0.9% 100 ML IVPB SCH (12:00)
[2020-08-22] MEDS: Acetaminophen 325 MG TAB PO PRN ×2 (12:14→23:43)
[2020-08-22] MEDS: Polyethylene Glycol 3350 17 GM Packet PO SCH ×2 (13:01→14:24)
[2020-08-22] MEDS: Cefepime 2 GM in Sodium Chloride 0.9% 100 ML IVPB SCH (13:18)
[2020-08-22] MEDS: EPOETIN ALFA-EPBX (ESRD) 2,000 UNIT/ML VIAL IVP SCH (13:29)
[2020-08-22] MEDS: EPOETIN ALFA-EPBX (ESRD) 3,000 UNIT/ML VIAL IVP SCH (13:29)
[2020-08-22] MEDS ORDERED: EPOETIN ALFA-EPBX (ESRD) 10,000 UNIT/ML VIAL IVP SCH (13:44)
[2020-08-22] MEDS ORDERED: Ketorolac Tromethamine 30 MG/ML VIAL IVP SCH (14:15)
[2020-08-22] MEDS: Apixaban 5 MG TAB PO SCH (20:38)
[2020-08-22] MEDS: Atorvastatin Calcium 40 MG TAB PO SCH (20:39)
[2020-08-22] MEDS: Melatonin 3 MG TAB PO PRN (20:39)
[2020-08-23 05:46] LABS: #Basophils 0.1 thou/uL (0.0-0.2); #Eosinphils 0.1 thou/uL (0.0-0.7); #Lymphocytes 1.5 thou/uL (1.20-3.40); #Monocytes 1.7 thou/uL (0.11-0.59); #Neutrophils 14.8 thou/uL (1.40-6.50); %Basophils 0.3 % (0.0-1.0); %Eosinophils 0.3 % (0.0-10.0); %Lymphocytes 8.4 % (21.0-51.0); %Monocytes 9.5 % (0.0-10.0); %Neutrophils 81.5 % (42.0-75.0); Hemoglobin 9.6 g/dL (14.0-18.0); Mean Corpuscular HGB CONC 32.5 g/dL (32.0-36.0); Mean Corpuscular Hemoglobin 29.7 pg (27.0-31.0); Mean Corpuscular Volume 91.6 fL (78.0-98.0); Mean Platelet Volume 8.1 fL (7.4-10.4); Platelet Count 302 thou/uL (130-400); RBC Distribution Width 15.4 % (11.5-14.5); Red Blood Cell (RBC) Count 3.22 mill/uL (4.70-6.10); White Blood Cell (WBC) Count 18.2 thou/uL (4.8-10.8)
[2020-08-23 06:00] LABS: Anion Gap 18 mmol/L (10-20); BUN (Urea Nitrogen) 45 mg/dL (8.4-25.7); Calc. Creatinine Clearance 11 mL/min (70-130); Calcium 9.3 mg/dL (7.8-10.44); Carbon Dioxide 26 mmol/L (22-29); Chloride 95 mmol/L (98-107); Glucose 103 mg/dL (70-105); Potassium 4.1 mmol/L (3.5-5.1); Sodium 135 mmol/L (136-145)
[2020-08-23 06:18] VITALS: BMI 29.7
[2020-08-23] MEDS: HYDROcodone/Acetaminophen 5/325 mg Tablet PO PRN (06:33)
[2020-08-23] MEDS: NIFEdipine XL 60 MG TAB PO SCH ×2 (08:39→20:43)
[2020-08-23] MEDS: Lisinopril 20 MG TAB PO SCH ×2 (08:41→20:44)
[2020-08-23] MEDS: Senokot 8.6 MG TAB PO SCH (08:42)
[2020-08-23] MEDS: hydrALAZINE 25 MG TAB PO SCH ×3 (08:42→20:43)
[2020-08-23] MEDS: Apixaban 5 MG TAB PO SCH ×2 (08:42→20:43)
[2020-08-23] MEDS: Polyethylene Glycol 3350 17 GM Packet PO SCH (08:44)
[2020-08-23] MEDS: Labetalol 100 MG TAB PO SCH ×3 (08:50→20:41)
[2020-08-23] MEDS: Morphine 4 MG/ML VIAL SLOW IVP PRN (14:46)
[2020-08-23] MEDS: Atorvastatin Calcium 40 MG TAB PO SCH (20:42)
[2020-08-23] MEDS ORDERED: Lorazepam 0.5 MG TAB PO SCH (23:45)
[2020-08-24 06:06] LABS: #Eosinphils 0.2 thou/uL (0.0-0.7); #Lymphocytes 1.4 thou/uL (1.20-3.40); #Monocytes 1.3 thou/uL (0.11-0.59); #Neutrophils 11.5 thou/uL (1.40-6.50); %Basophils 0.3 % (0.0-1.0); %Eosinophils 1.3 % (0.0-10.0); %Lymphocytes 9.7 % (21.0-51.0); %Monocytes 8.8 % (0.0-10.0); %Neutrophils 79.9 % (42.0-75.0); Hemoglobin 9.5 g/dL (14.0-18.0); Mean Corpuscular Hemoglobin 29.2 pg (27.0-31.0); Mean Platelet Volume 7.7 fL (7.4-10.4); Platelet Count 337 thou/uL (130-400); RBC Distribution Width 15.2 % (11.5-14.5); Red Blood Cell (RBC) Count 3.26 mill/uL (4.70-6.10); White Blood Cell (WBC) Count 14.4 thou/uL (4.8-10.8)
[2020-08-24] MEDS: Morphine 2 MG/ML VIAL SLOW IVP PRN ×2 (06:06→06:11)
[2020-08-24 06:27] LABS: Anion Gap 19 mmol/L (10-20); BUN (Urea Nitrogen) 65 mg/dL (8.4-25.7); Calc. Creatinine Clearance 9 mL/min (70-130); Calcium 9.3 mg/dL (7.8-10.44); Carbon Dioxide 25 mmol/L (22-29); Chloride 95 mmol/L (98-107); Glucose 112 mg/dL (70-105); Potassium 4.1 mmol/L (3.5-5.1); Sodium 135 mmol/L (136-145)
[2020-08-24] MEDS: NIFEdipine XL 60 MG TAB PO SCH ×2 (09:00→20:08)
[2020-08-24] MEDS: Lisinopril 20 MG TAB PO SCH ×2 (09:00→20:08)
[2020-08-24] MEDS: Labetalol 100 MG TAB PO SCH ×2 (09:00→20:14)
[2020-08-24] MEDS ORDERED: Iopamidol-370 76% 500 ML 1 ML ONE (09:06)
[2020-08-24] MEDS: hydrALAZINE 25 MG TAB PO SCH ×3 (09:39→20:08)
[2020-08-24] MEDS: Apixaban 5 MG TAB PO SCH ×2 (09:39→20:08)
[2020-08-24] MEDS: Senokot 8.6 MG TAB PO SCH (09:40)
[2020-08-24] MEDS: Polyethylene Glycol 3350 17 GM Packet PO SCH (09:40)
[2020-08-24 16:15] LABS: Vancomycin, Random 10.8 ug/mL (See Comment)
[2020-08-24] MEDS: Cefepime 2 GM in Sodium Chloride 0.9% 100 ML IVPB SCH (18:03)
[2020-08-24] MEDS: Atorvastatin Calcium 40 MG TAB PO SCH (20:08)
[2020-08-24] MEDS: Acetaminophen 325 MG TAB PO PRN (20:18)
[2020-08-24] MEDS: EPOETIN ALFA-EPBX (ESRD) 3,000 UNIT/ML VIAL IVP SCH (21:15)
[2020-08-24] MEDS: EPOETIN ALFA-EPBX (ESRD) 2,000 UNIT/ML VIAL IVP SCH (21:15)
[2020-08-24] MEDS: HYDROcodone/Acetaminophen 5/325 mg Tablet PO PRN (21:23)
[2020-08-24] MEDS: Melatonin 3 MG TAB PO PRN (21:23)
[2020-08-25] MEDS: Morphine 2 MG/ML VIAL SLOW IVP PRN ×2 (00:36→08:31)
[2020-08-25] MEDS: HYDROcodone/Acetaminophen 5/325 mg Tablet PO PRN ×2 (05:46→20:57)
[2020-08-25 06:26] LABS: #Eosinphils 0.3 thou/uL (0.0-0.7); #Lymphocytes 1.2 thou/uL (1.20-3.40); #Monocytes 1.6 thou/uL (0.11-0.59); #Neutrophils 10.4 thou/uL (1.40-6.50); %Basophils 0.1 % (0.0-1.0); %Monocytes 11.7 % (0.0-10.0); %Neutrophils 77.3 % (42.0-75.0); Mean Corpuscular HGB CONC 31.6 g/dL (32.0-36.0); Mean Corpuscular Volume 91.7 fL (78.0-98.0); Mean Platelet Volume 7.5 fL (7.4-10.4); Platelet Count 363 thou/uL (130-400); RBC Distribution Width 15.2 % (11.5-14.5); Red Blood Cell (RBC) Count 3.12 mill/uL (4.70-6.10); White Blood Cell (WBC) Count 13.4 thou/uL (4.8-10.8)
[2020-08-25 06:43] LABS: Anion Gap 18 mmol/L (10-20); BUN (Urea Nitrogen) 47 mg/dL (8.4-25.7); Calc. Creatinine Clearance 11 mL/min (70-130); Calcium 9.4 mg/dL (7.8-10.44); Carbon Dioxide 26 mmol/L (22-29); Chloride 95 mmol/L (98-107); Glucose 110 mg/dL (70-105); Potassium 4.2 mmol/L (3.5-5.1); Sodium 135 mmol/L (136-145)
[2020-08-25] MEDS: NIFEdipine XL 60 MG TAB PO SCH (08:30)
[2020-08-25] MEDS: Lisinopril 20 MG TAB PO SCH ×2 (08:34→20:54)
[2020-08-25] MEDS: Senokot 8.6 MG TAB PO SCH (08:34)
[2020-08-25] MEDS: Apixaban 5 MG TAB PO SCH ×2 (08:34→20:56)
[2020-08-25] MEDS: hydrALAZINE 25 MG TAB PO SCH ×3 (08:34→20:56)
[2020-08-25] MEDS: Polyethylene Glycol 3350 17 GM Packet PO SCH (08:34)
[2020-08-25] MEDS: Labetalol 100 MG TAB PO SCH ×2 (12:27→20:56)
[2020-08-25] MEDS: Atorvastatin Calcium 40 MG TAB PO SCH (20:54)
[2020-08-25] MEDS: Melatonin 3 MG TAB PO PRN (20:54)
[2020-08-25] MEDS: NIFEdipine XL 90 MG TAB PO SCH (20:56)
[2020-08-26] MEDS: HYDROcodone/Acetaminophen 5/325 mg Tablet PO PRN (05:19)
[2020-08-26 06:08] LABS: #Eosinphils 0.4 thou/uL (0.0-0.7); #Lymphocytes 1.5 thou/uL (1.20-3.40); #Monocytes 1.4 thou/uL (0.11-0.59); #Neutrophils 8.2 thou/uL (1.40-6.50); %Basophils 0.3 % (0.0-1.0); %Eosinophils 3.8 % (0.0-10.0); %Lymphocytes 12.9 % (21.0-51.0); Hemoglobin 8.7 g/dL (14.0-18.0); Mean Corpuscular Hemoglobin 28.1 pg (27.0-31.0); Mean Corpuscular Volume 90.6 fL (78.0-98.0); Mean Platelet Volume 7.4 fL (7.4-10.4); Platelet Count 349 thou/uL (130-400); RBC Distribution Width 15.2 % (11.5-14.5); White Blood Cell (WBC) Count 11.6 thou/uL (4.8-10.8)
[2020-08-26 06:21] LABS: Anion Gap 18 mmol/L (10-20); BUN (Urea Nitrogen) 59 mg/dL (8.4-25.7); Calc. Creatinine Clearance 10 mL/min (70-130); Calcium 9.4 mg/dL (7.8-10.44); Carbon Dioxide 26 mmol/L (22-29); Chloride 94 mmol/L (98-107); Glucose 116 mg/dL (70-105); Potassium 4.1 mmol/L (3.5-5.1); Sodium 134 mmol/L (136-145)
[2020-08-26] MEDS: Apixaban 5 MG TAB PO SCH (08:20)
[2020-08-26] MEDS: Labetalol 100 MG TAB PO SCH (08:21)
[2020-08-26] MEDS: hydrALAZINE 25 MG TAB PO SCH (08:21)
[2020-08-26] MEDS: Lisinopril 20 MG TAB PO SCH (08:22)
[2020-08-26] MEDS: NIFEdipine XL 90 MG TAB PO SCH (08:22)
[2020-08-26] MEDS ORDERED: Cipro 250 MG TAB PO SCH (09:00)
[2020-08-26 09:12] LABS: Vancomycin, Random 15.5 ug/mL (See Comment)
[2020-08-26] MEDS: EPOETIN ALFA-EPBX (ESRD) 2,000 UNIT/ML VIAL IVP SCH (10:12)
[2020-08-26] MEDS: EPOETIN ALFA-EPBX (ESRD) 3,000 UNIT/ML VIAL IVP SCH (10:12)
[2020-08-26] MEDS: Senokot 8.6 MG TAB PO SCH (11:59)
[2020-08-26] MEDS: Polyethylene Glycol 3350 17 GM Packet PO SCH (11:59)
[2020-08-26 13:47] VITALS: BP 139/69; TEMP 98.3
== END 2020-08-26 13:32 | disposition home or self-care (01) | DRG 871 ==
LOC: ERS 09:03 → T4-B 10:25
PROVIDERS: ADMIT Student in an Organized Health Care Education/Training Program; ATTEND Student in an Organized Health Care Education/Training Program
PROC: 05H933Z Insertion of Infusion Device into Right Brachial Vein, Percutaneous Approach (ICD-10-PCS; principal; 2020-08-24)
PROC: 5A1D70Z Performance of Urinary Filtration, Intermittent, Less than 6 Hours Per Day (ICD-10-PCS; 2020-08-26)
DX: A41.9 Sepsis, unspecified organism (principal); N18.6 End stage renal disease; I12.0 Hypertensive chronic kidney disease with stage 5 chronic kidney disease or end stage renal disease; E11.621 Type 2 diabetes mellitus with foot ulcer; L97.519 Non-pressure chronic ulcer of other part of right foot with unspecified severity; D63.1 Anemia in chronic kidney disease; E11.22 Type 2 diabetes mellitus with diabetic chronic kidney disease; Z20.822 Contact with and (suspected) exposure to COVID-19; Z86.73 Personal history of transient ischemic attack (TIA), and cerebral infarction without residual deficits; Z86.711 Personal history of pulmonary embolism; Z79.01 Long term (current) use of anticoagulants; Z89.412 Acquired absence of left great toe; Z89.411 Acquired absence of right great toe
CPT/HCPCS: 36415; 36416; 71275; 80048; 80053; 80202; 83605; 85007; 85025; 85027; 85610; 85652; 85730; 86140; 87040; 90935; 93005; 93970; 94760; 96365; 96367; 96374; 96375; G0257; J0360; J0692; J1885; J2270; J3010; J3370; J3490; J7050; Q5105; Q9967; U0003; U0005

== ENCOUNTER 2021-02-26 14:20 | Emergency (ER) | payer MEDICARE ==
[2021-02-26] MEDS ORDERED: Ondansetron PF 4 MG/2 ML Vial ONE ×2 (15:09→18:13)
[2021-02-26 15:19] LABS: Analyzer IN Cardio ER; Base Excess 4.6 mEq/L (-2.0 to +3.0); Calcium, Ionized (venous) 1.07 mmol/L (1.16-1.32); Chloride (VBG) 90 mmol/L (98-106); Hemoglobin (Hb) 13.6 g/dL (13.1-17.2); Potassium (VBG) 4.08 mmol/L (3.70-5.30); Sodium 138.1 mmol/L (133-146); pH (venous) 7.37 (7.32-7.43)
[2021-02-26 15:20] LABS: #Eosinphils 0.1 thou/uL (0.0-0.7); #Lymphocytes 0.9 thou/uL (1.20-3.40); #Monocytes 0.6 thou/uL (0.11-0.59); #Neutrophils 6.4 thou/uL (1.40-6.50); %Basophils 0.2 % (0.0-1.0); %Eosinophils 0.9 % (0.0-10.0); %Monocytes 7.3 % (0.0-10.0); %Neutrophils 80.7 % (42.0-75.0); Hemoglobin 13.8 g/dL (14.0-18.0); Mean Corpuscular HGB CONC 31.5 g/dL (32.0-36.0); Mean Corpuscular Volume 92.3 fL (78.0-98.0); Mean Platelet Volume 8.5 fL (7.4-10.4); Platelet Count 240 thou/uL (130-400); RBC Distribution Width 14.2 % (11.5-14.5); Red Blood Cell (RBC) Count 4.74 mill/uL (4.70-6.10); White Blood Cell (WBC) Count 7.9 thou/uL (4.8-10.8)
[2021-02-26 15:22] LABS: Actual Bicarbonate (HCO3v) 31 mEq/L (22-28)
[2021-02-26 15:47] LABS: ALT (SGPT) 8 U/L (8-55); AST (SGOT) 17 U/L (5-34); Albumin 3.8 g/dL (3.5-5.0); Alkaline Phosphatase 71 U/L (40-110); Anion Gap 25 mmol/L (10-20); BUN (Urea Nitrogen) 46 mg/dL (8.4-25.7); Bilirubin, Total 0.3 mg/dL (0.2-1.2); Calc. Creatinine Clearance 0 mL/min (70-130); Calcium 9.3 mg/dL (7.8-10.44); Carbon Dioxide 26 mmol/L (22-29); Chloride 90 mmol/L (98-107); Globulin 5.9 g/dL (2.4-3.5); Glucose 124 mg/dL (70-105); Potassium 3.9 mmol/L (3.5-5.1); Protein, Total 9.7 g/dL (6.0-8.3); Sodium 137 mmol/L (136-145)
[2021-02-26] MEDS ORDERED: Metoclopramide HCl 10 MG/2 ML VIAL ONE (17:18)
[2021-02-26] MEDS ORDERED: Lisinopril 10 MG TAB ONE (17:19)
[2021-02-26] MEDS ORDERED: hydrALAZINE 25 MG TAB ONE (17:19)
[2021-02-26] MEDS ORDERED: Pantoprazole 40 MG VIAL ONE (18:23)
== END 2021-02-26 21:33 | disposition home or self-care (01) ==
LOC: ERS 14:20
DX: R11.2 Nausea with vomiting, unspecified (principal); I12.0 Hypertensive chronic kidney disease with stage 5 chronic kidney disease or end stage renal disease; E11.22 Type 2 diabetes mellitus with diabetic chronic kidney disease; N18.6 End stage renal disease; Z99.2 Dependence on renal dialysis; Z79.01 Long term (current) use of anticoagulants; Z79.82 Long term (current) use of aspirin; Z79.899 Other long term (current) drug therapy
CPT/HCPCS: 36415; 71045; 74176; 80053; 82805; 85025; 93005; 96374; 96375; 96376; C9113; J2405; J2765

== ENCOUNTER 2021-03-10 02:55 | Emergency (ER) | payer MEDICARE ==
[2021-03-10] MEDS ORDERED: Lidocaine Viscous Sol 2% 15 ml UD Cup ONE (03:40)
[2021-03-10] MEDS ORDERED: Milk Of Magnesia 30 ML UDCUP ONE (03:40)
[2021-03-10] MEDS ORDERED: Mag-Al 1200 mg/1200 mg/30 ML UDCUP ONE (03:41)
[2021-03-10 04:27] LABS: #Eosinphils 0.3 thou/uL (0.0-0.7); #Lymphocytes 0.9 thou/uL (1.20-3.40); #Monocytes 0.5 thou/uL (0.11-0.59); #Neutrophils 5.6 thou/uL (1.40-6.50); %Basophils 0.2 % (0.0-1.0); %Eosinophils 3.7 % (0.0-10.0); %Lymphocytes 12.8 % (21.0-51.0); %Neutrophils 76.3 % (42.0-75.0); Hemoglobin 10.4 g/dL (14.0-18.0); Mean Corpuscular HGB CONC 31.7 g/dL (32.0-36.0); Mean Corpuscular Hemoglobin 29.4 pg (27.0-31.0); Mean Corpuscular Volume 92.8 fL (78.0-98.0); Mean Platelet Volume 7.6 fL (7.4-10.4); Platelet Count 310 thou/uL (130-400); RBC Distribution Width 14.1 % (11.5-14.5); Red Blood Cell (RBC) Count 3.54 mill/uL (4.70-6.10); White Blood Cell (WBC) Count 7.3 thou/uL (4.8-10.8)
[2021-03-10 04:50] LABS: ALT (SGPT) Less than 7 U/L (8-55); AST (SGOT) 17 U/L (5-34); Albumin 2.8 g/dL (3.5-5.0); Alkaline Phosphatase 74 U/L (40-110); Anion Gap 16 mmol/L (10-20); BUN (Urea Nitrogen) 41 mg/dL (8.4-25.7); Bilirubin, Total 0.2 mg/dL (0.2-1.2); Calc. Creatinine Clearance 0 mL/min (70-130); Calcium 8.9 mg/dL (7.8-10.44); Carbon Dioxide 28 mmol/L (22-29); Chloride 97 mmol/L (98-107); Globulin 5.6 g/dL (2.4-3.5); Glucose 124 mg/dL (70-105); Potassium 5.2 mmol/L (3.5-5.1); Protein, Total 8.4 g/dL (6.0-8.3); Sodium 136 mmol/L (136-145)
== END 2021-03-10 06:00 | disposition home or self-care (01) ==
LOC: ERS 02:55
DX: R10.12 Left upper quadrant pain (principal); I13.2 Hypertensive heart and chronic kidney disease with heart failure and with stage 5 chronic kidney disease, or end stage renal disease; E11.22 Type 2 diabetes mellitus with diabetic chronic kidney disease; N18.6 End stage renal disease; Z79.82 Long term (current) use of aspirin; Z79.899 Other long term (current) drug therapy; Z99.2 Dependence on renal dialysis
CPT/HCPCS: 36415; 71045; 74176; 80053; 85025; 93005

== ENCOUNTER 2021-03-12 07:20 | Emergency (ER) | payer MEDICARE ==
[2021-03-12 08:14] LABS: #Eosinphils 0.2 thou/uL (0.0-0.7); #Monocytes 0.6 thou/uL (0.11-0.59); #Neutrophils 6.9 thou/uL (1.40-6.50); %Basophils 0.3 % (0.0-1.0); %Eosinophils 2.8 % (0.0-10.0); %Lymphocytes 11.5 % (21.0-51.0); %Neutrophils 78.5 % (42.0-75.0); Hemoglobin 10.1 g/dL (14.0-18.0); Mean Corpuscular HGB CONC 31.6 g/dL (32.0-36.0); Mean Corpuscular Hemoglobin 28.9 pg (27.0-31.0); Mean Corpuscular Volume 91.4 fL (78.0-98.0); Mean Platelet Volume 6.9 fL (7.4-10.4); Platelet Count 374 thou/uL (130-400); RBC Distribution Width 14.1 % (11.5-14.5); Red Blood Cell (RBC) Count 3.48 mill/uL (4.70-6.10); White Blood Cell (WBC) Count 8.8 thou/uL (4.8-10.8)
[2021-03-12 08:38] LABS: ALT (SGPT) Less than 7 U/L (8-55); AST (SGOT) 9 U/L (5-34); Albumin 3.1 g/dL (3.5-5.0); Alkaline Phosphatase 80 U/L (40-110); Anion Gap 15 mmol/L (10-20); BUN (Urea Nitrogen) 62 mg/dL (8.4-25.7); Bilirubin, Total 0.3 mg/dL (0.2-1.2); Calc. Creatinine Clearance 0 mL/min (70-130); Calcium 9.8 mg/dL (7.8-10.44); Carbon Dioxide 28 mmol/L (22-29); Chloride 95 mmol/L (98-107); Globulin 5.5 g/dL (2.4-3.5); Glucose 119 mg/dL (70-105); Potassium 4.5 mmol/L (3.5-5.1); Protein, Total 8.6 g/dL (6.0-8.3); Sodium 133 mmol/L (136-145)
[2021-03-12 10:01] LABS: Bilirubin Negative (Negative); Blood, Urine 2+ (Negative); Clarity Turbid (Clear); Glucose, Urine (Dipstick) 50 mg/dL (Negative); Ketone, Urine Negative (Negative); Leukocyte 500 Leu/uL (Negative); Nitrite Negative (Negative); Protein, Urine (Dipstick) 100 mg/dL (Neg-Trace); Specific Gravity, Urine 1.011 (1.002-1.036); Squamous Epithelial 0-3 HPF (0-3); Urobilinogen Normal mg/dL (Less than 2); WBC/HPF 21-50 HPF (0-3); pH, Urine 8.5 (5.0-9.0)
[2021-03-12 10:12] LABS: Bacteria/HPF Rare-Few HPF (None Seen); Sperm/HPF 1+ HPF (None Seen)
== END 2021-03-12 10:01 | disposition home or self-care (01) ==
LOC: ERS 07:20
DX: R10.9 Unspecified abdominal pain (principal); G89.29 Other chronic pain; E11.9 Type 2 diabetes mellitus without complications; I12.0 Hypertensive chronic kidney disease with stage 5 chronic kidney disease or end stage renal disease; N18.30 Chronic kidney disease, stage 3 unspecified; Z86.73 Personal history of transient ischemic attack (TIA), and cerebral infarction without residual deficits; Z99.2 Dependence on renal dialysis; Z79.82 Long term (current) use of aspirin; Z79.899 Other long term (current) drug therapy
CPT/HCPCS: 36415; 51701; 80053; 81003; 81015; 85025

== ENCOUNTER 2021-03-20 16:55 | Emergency (ER) | payer MEDICARE ==
[2021-03-20 18:58] LABS: #Eosinphils 0.3 thou/uL (0.0-0.7); #Lymphocytes 0.8 thou/uL (1.20-3.40); #Monocytes 0.5 thou/uL (0.11-0.59); #Neutrophils 5.9 thou/uL (1.40-6.50); %Basophils 0.5 % (0.0-1.0); %Eosinophils 3.5 % (0.0-10.0); %Lymphocytes 10.7 % (21.0-51.0); %Monocytes 6.9 % (0.0-10.0); %Neutrophils 78.3 % (42.0-75.0); Hemoglobin 9.4 g/dL (14.0-18.0); Mean Corpuscular HGB CONC 31.8 g/dL (32.0-36.0); Mean Corpuscular Hemoglobin 28.4 pg (27.0-31.0); Mean Corpuscular Volume 89.5 fL (78.0-98.0); Mean Platelet Volume 6.5 fL (7.4-10.4); Platelet Count 352 thou/uL (130-400); RBC Distribution Width 14.6 % (11.5-14.5); White Blood Cell (WBC) Count 7.5 thou/uL (4.8-10.8)
[2021-03-20 19:17] LABS: ALT (SGPT) Less than 7 U/L (8-55); AST (SGOT) 11 U/L (5-34); Albumin 2.8 g/dL (3.5-5.0); Alkaline Phosphatase 90 U/L (40-110); Anion Gap 13 mmol/L (10-20); BUN (Urea Nitrogen) 22 mg/dL (8.4-25.7); Bilirubin, Total 0.2 mg/dL (0.2-1.2); Calc. Creatinine Clearance 0 mL/min (70-130); Calcium 8.4 mg/dL (7.8-10.44); Carbon Dioxide 34 mmol/L (22-29); Chloride 94 mmol/L (98-107); Globulin 5.6 g/dL (2.4-3.5); Glucose 104 mg/dL (70-105); Potassium 3.6 mmol/L (3.5-5.1); Protein, Total 8.4 g/dL (6.0-8.3); Sodium 137 mmol/L (136-145)
[2021-03-21 11:29] LABS: Syphilis Antibody Index 17.84 S/CO (<1.00 Non-Reactive)
[2021-03-21 14:05] LABS: Syphilis Antibody REACTIVE (Nonreactive)
== END 2021-03-20 20:34 | disposition home or self-care (01) ==
LOC: ERS 16:55
DX: R06.00 Dyspnea, unspecified (principal); I12.0 Hypertensive chronic kidney disease with stage 5 chronic kidney disease or end stage renal disease; E11.22 Type 2 diabetes mellitus with diabetic chronic kidney disease; N18.6 End stage renal disease; B36.9 Superficial mycosis, unspecified; Z99.2 Dependence on renal dialysis; Z79.82 Long term (current) use of aspirin; Z79.899 Other long term (current) drug therapy
CPT/HCPCS: 36415; 71045; 80053; 85025; 86593; 86780; 93005; 94760

== ENCOUNTER 2021-04-01 15:39 | Emergency (ER) | payer MEDICARE ==
[2021-04-01 17:20] LABS: #Basophils 0.1 thou/uL (0.0-0.2); #Eosinphils 0.2 thou/uL (0.0-0.7); #Lymphocytes 1.1 thou/uL (1.20-3.40); #Monocytes 0.8 thou/uL (0.11-0.59); #Neutrophils 7.3 thou/uL (1.40-6.50); %Basophils 0.7 % (0.0-1.0); %Eosinophils 2.5 % (0.0-10.0); %Lymphocytes 11.1 % (21.0-51.0); %Monocytes 8.3 % (0.0-10.0); %Neutrophils 77.4 % (42.0-75.0); Hemoglobin 8.7 g/dL (14.0-18.0); Mean Corpuscular HGB CONC 31.2 g/dL (32.0-36.0); Mean Corpuscular Volume 89.8 fL (78.0-98.0); Platelet Count 364 thou/uL (130-400); RBC Distribution Width 16.4 % (11.5-14.5); Red Blood Cell (RBC) Count 3.11 mill/uL (4.70-6.10); White Blood Cell (WBC) Count 9.5 thou/uL (4.8-10.8)
[2021-04-01 17:41] LABS: ALT (SGPT) 34 U/L (8-55); AST (SGOT) 24 U/L (5-34); Albumin 2.7 g/dL (3.5-5.0); Alkaline Phosphatase 213 U/L (40-110); Anion Gap 15 mmol/L (10-20); BUN (Urea Nitrogen) 14 mg/dL (8.4-25.7); Bilirubin, Total 0.5 mg/dL (0.2-1.2); Calc. Creatinine Clearance 0 mL/min (70-130); Calcium 8.5 mg/dL (7.8-10.44); Carbon Dioxide 32 mmol/L (22-29); Chloride 91 mmol/L (98-107); Globulin 5.4 g/dL (2.4-3.5); Glucose 80 mg/dL (70-105); Potassium 3.3 mmol/L (3.5-5.1); Protein, Total 8.1 g/dL (6.0-8.3); Sodium 135 mmol/L (136-145)
== END 2021-04-01 18:46 | disposition home or self-care (01) ==
LOC: ERS 15:39
DX: H10.13 Acute atopic conjunctivitis, bilateral (principal); J01.90 Acute sinusitis, unspecified; I12.0 Hypertensive chronic kidney disease with stage 5 chronic kidney disease or end stage renal disease; N18.6 End stage renal disease
CPT/HCPCS: 36415; 70450; 80053; 85025

== ENCOUNTER 2021-04-03 07:47 | Inpatient (IN) | payer MEDICARE ==
[2021-04-03 09:01] LABS: #Eosinphils 0.3 thou/uL (0.0-0.7); #Lymphocytes 0.9 thou/uL (1.20-3.40); #Monocytes 0.7 thou/uL (0.11-0.59); #Neutrophils 5.6 thou/uL (1.40-6.50); %Basophils 0.4 % (0.0-1.0); %Eosinophils 4.1 % (0.0-10.0); %Lymphocytes 12.4 % (21.0-51.0); %Monocytes 9.3 % (0.0-10.0); %Neutrophils 73.8 % (42.0-75.0); Hemoglobin 9.8 g/dL (14.0-18.0); Mean Corpuscular HGB CONC 30.9 g/dL (32.0-36.0); Mean Corpuscular Hemoglobin 28.1 pg (27.0-31.0); Mean Corpuscular Volume 91.1 fL (78.0-98.0); Mean Platelet Volume 7.4 fL (7.4-10.4); Platelet Count 357 thou/uL (130-400); RBC Distribution Width 16.6 % (11.5-14.5); Red Blood Cell (RBC) Count 3.48 mill/uL (4.70-6.10); White Blood Cell (WBC) Count 7.6 thou/uL (4.8-10.8)
[2021-04-03 09:06] LABS: Prothrombin Time 13.7 sec (12.0-14.7)
[2021-04-03 09:07] LABS: PTT 44.1 sec (22.9-36.1)
[2021-04-03 09:24] LABS: ALT (SGPT) 27 U/L (8-55); AST (SGOT) 27 U/L (5-34); Albumin 2.9 g/dL (3.5-5.0); Alkaline Phosphatase 189 U/L (40-110); Anion Gap 23 mmol/L (10-20); BUN (Urea Nitrogen) 30 mg/dL (8.4-25.7); Bilirubin, Total 0.4 mg/dL (0.2-1.2); Calc. Creatinine Clearance 0 mL/min (70-130); Calcium 8.3 mg/dL (7.8-10.44); Carbon Dioxide 25 mmol/L (22-29); Chloride 91 mmol/L (98-107); Globulin 5.7 g/dL (2.4-3.5); Glucose 79 mg/dL (70-105); Potassium 3.7 mmol/L (3.5-5.1); Protein, Total 8.6 g/dL (6.0-8.3); Sodium 135 mmol/L (136-145)
[2021-04-03 09:34] LABS: CKMB 1.7 ng/mL (0-6.6)
[2021-04-03] MEDS ORDERED: Aspirin Chewable 81 MG TAB ONE (10:42)
[2021-04-03 11:47] LABS: Bilirubin Negative (Negative); Blood, Urine Large (Negative); Glucose, Urine (Dipstick) Negative (Negative); Ketone, Urine Negative (Negative); Leukocyte Small (Negative); Nitrite Positive (Negative); Protein, Urine (Dipstick) 100 mg/dL (Neg-Trace); Specific Gravity, Urine 1.015 (1.005-1.030); Urobilinogen 0.2 mg/dL (Less than 2); pH, Urine 8.5 (5.0-9.0)
[2021-04-03 11:52] LABS: Clarity Cloudy (Clear)
[2021-04-03 12:06] LABS: Bacteria/HPF 1+ HPF (None Seen); RBC/HPF Greater than 50 HPF (0-3); Squamous Epithelial 0-3 HPF (0-3); WBC/HPF 0-3 HPF (0-3)
[2021-04-03 12:58] LABS: Troponin I 0.099 ng/mL (< 0.028)
[2021-04-03] MEDS ORDERED: hydrALAZINE 20 MG/ML VIAL SLOW IVP PRN (13:31)
[2021-04-03 13:42] LABS: Hemoglobin A1c 5.4 % (4.0-6.0)
[2021-04-03] MEDS ORDERED: Dextrose 50% Abboject 50 ML SYRINGE SLOW IVP PRN (13:46)
[2021-04-03] MEDS ORDERED: HumaLOG 300 UNITS/3 ML VIAL SC PRN ×2 (13:46)
[2021-04-03] MEDS ORDERED: Dextrose 5% in Water 1,000 ML IV PRN (13:46)
[2021-04-03 13:47] LABS: Cardiac Risk 6.8 (Less than 4.5)
[2021-04-03] MEDS ORDERED: hydrALAZINE 20 MG/ML VIAL ONE (14:01)
[2021-04-03 14:03] LABS: Thyroid Stimulating Hormone 0.5068 uIU/mL (0.35-4.94)
[2021-04-03 15:08] LABS: SARS-CoV-2 NAA Rapid Test DETECTED (NotDetected)
[2021-04-03 15:45] LABS: Troponin I 0.091 ng/mL (< 0.028)
[2021-04-03 16:01] LABS: HIV (1/2) Antibody/Antigen Reflxed Confirmation (NonReactive); HIV 1/2 INDEX 964.03 S/CO (<1.00)
[2021-04-03] MEDS: Sodium Chloride 0.65% Nasal 44 ML BOT EA NARE PRN (20:16)
[2021-04-03] MEDS: Acetaminophen 325 MG TAB PO PRN (20:20)
[2021-04-03] MEDS: Atorvastatin Calcium 40 MG TAB PO SCH (20:21)
[2021-04-03] MEDS: hydrALAZINE 25 MG TAB PO SCH (20:21)
[2021-04-03] MEDS: Apixaban 5 MG TAB PO SCH (20:21)
[2021-04-03] MEDS: NIFEdipine XL 90 MG TAB PO SCH (20:22)
[2021-04-03] MEDS: Lisinopril 20 MG TAB PO SCH (20:22)
[2021-04-03] MEDS: Labetalol 100 MG TAB PO SCH (20:22)
[2021-04-03] MEDS ORDERED: Lisinopril 20 MG TAB PO SCH (21:00)
[2021-04-03] MEDS: Fluticasone Propionate Nasal Spray 16 gm Bottle NASAL SCH (21:35)
[2021-04-03] MEDS: Melatonin 3 MG TAB PO PRN (22:32)
[2021-04-03] MEDS: Diclofenac 1% 100 GM GEL TP PRN (23:54)
[2021-04-04 05:38] LABS: #Eosinphils 0.2 thou/uL (0.0-0.7); #Monocytes 0.7 thou/uL (0.11-0.59); #Neutrophils 4.4 thou/uL (1.40-6.50); %Basophils 0.4 % (0.0-1.0); %Eosinophils 2.4 % (0.0-10.0); %Lymphocytes 16.2 % (21.0-51.0); %Monocytes 11.7 % (0.0-10.0); %Neutrophils 69.3 % (42.0-75.0); Hemoglobin 9.1 g/dL (14.0-18.0); Mean Corpuscular Hemoglobin 28.1 pg (27.0-31.0); Mean Corpuscular Volume 90.6 fL (78.0-98.0); Platelet Count 344 thou/uL (130-400); RBC Distribution Width 16.6 % (11.5-14.5); Red Blood Cell (RBC) Count 3.24 mill/uL (4.70-6.10); White Blood Cell (WBC) Count 6.3 thou/uL (4.8-10.8)
[2021-04-04 06:02] LABS: ALT (SGPT) 19 U/L (8-55); AST (SGOT) 19 U/L (5-34); Albumin 2.6 g/dL (3.5-5.0); Alkaline Phosphatase 157 U/L (40-110); Anion Gap 22 mmol/L (10-20); BUN (Urea Nitrogen) 37 mg/dL (8.4-25.7); Bilirubin, Total 0.4 mg/dL (0.2-1.2); Calc. Creatinine Clearance 9 mL/min (70-130); Calcium 7.8 mg/dL (7.8-10.44); Carbon Dioxide 25 mmol/L (22-29); Chloride 93 mmol/L (98-107); Globulin 4.9 g/dL (2.4-3.5); Glucose 78 mg/dL (70-105); Potassium 3.4 mmol/L (3.5-5.1); Protein, Total 7.5 g/dL (6.0-8.3); Sodium 137 mmol/L (136-145)
[2021-04-04] MEDS ORDERED: Potassium Chloride 20 MEQ TAB PO SCH (07:00)
[2021-04-04] MEDS: hydrALAZINE 25 MG TAB PO SCH ×3 (09:04→21:35)
[2021-04-04] MEDS: Aspirin 81 mg Enteric Coated Tablet PO SCH (09:04)
[2021-04-04] MEDS: Apixaban 5 MG TAB PO SCH ×2 (09:04→21:35)
[2021-04-04] MEDS: Fluticasone Propionate Nasal Spray 16 gm Bottle NASAL SCH (09:04)
[2021-04-04] MEDS: Labetalol 100 MG TAB PO SCH ×2 (09:05→21:35)
[2021-04-04] MEDS: NIFEdipine XL 90 MG TAB PO SCH ×2 (09:05→21:34)
[2021-04-04] MEDS: Lisinopril 20 MG TAB PO SCH ×2 (09:05→21:35)
[2021-04-04 13:13] LABS: Absolute CD4 312 /uL (359-1519); Lymphocytes/Gated Cell Count 1.2 x10E3/uL (0.7-3.1); Total Lymphocyte 16 % (Not Estab.); WBC Total Count 7.4 x10E3/uL (3.4-10.8)
[2021-04-04] MEDS: Atorvastatin Calcium 40 MG TAB PO SCH (21:36)
[2021-04-04] MEDS: Melatonin 3 MG TAB PO PRN (21:42)
[2021-04-05 06:14] LABS: #Eosinphils 0.4 thou/uL (0.0-0.7); #Monocytes 0.6 thou/uL (0.11-0.59); #Neutrophils 5.6 thou/uL (1.40-6.50); %Lymphocytes 13.2 % (21.0-51.0); %Monocytes 8.4 % (0.0-10.0); %Neutrophils 73.3 % (42.0-75.0); Hemoglobin 8.9 g/dL (14.0-18.0); Mean Corpuscular HGB CONC 32.6 g/dL (32.0-36.0); Mean Corpuscular Volume 88.9 fL (78.0-98.0); Mean Platelet Volume 7.1 fL (7.4-10.4); Platelet Count 338 thou/uL (130-400); RBC Distribution Width 16.5 % (11.5-14.5); Red Blood Cell (RBC) Count 3.07 mill/uL (4.70-6.10); White Blood Cell (WBC) Count 7.6 thou/uL (4.8-10.8)
[2021-04-05 06:40] LABS: ALT (SGPT) 16 U/L (8-55); AST (SGOT) 20 U/L (5-34); Albumin 2.6 g/dL (3.5-5.0); Alkaline Phosphatase 148 U/L (40-110); Anion Gap 16 mmol/L (10-20); BUN (Urea Nitrogen) 21 mg/dL (8.4-25.7); Bilirubin, Total 0.5 mg/dL (0.2-1.2); Calc. Creatinine Clearance 12 mL/min (70-130); Carbon Dioxide 29 mmol/L (22-29); Chloride 95 mmol/L (98-107); Globulin 5.1 g/dL (2.4-3.5); Glucose 77 mg/dL (70-105); Potassium 3.6 mmol/L (3.5-5.1); Protein, Total 7.7 g/dL (6.0-8.3); Sodium 136 mmol/L (136-145)
[2021-04-05] MEDS: Labetalol 100 MG TAB PO SCH ×2 (10:03→20:28)
[2021-04-05] MEDS: NIFEdipine XL 90 MG TAB PO SCH (10:05)
[2021-04-05] MEDS: Aspirin 81 mg Enteric Coated Tablet PO SCH (10:05)
[2021-04-05] MEDS: hydrALAZINE 25 MG TAB PO SCH ×3 (10:05→20:27)
[2021-04-05] MEDS: Acetaminophen 325 MG TAB PO PRN (10:06)
[2021-04-05] MEDS: Apixaban 5 MG TAB PO SCH ×2 (10:06→20:26)
[2021-04-05] MEDS: Lisinopril 20 MG TAB PO SCH ×2 (10:07→20:28)
[2021-04-05] MEDS: Fluticasone Propionate Nasal Spray 16 gm Bottle NASAL SCH (11:00)
[2021-04-05 14:16] LABS: HIV 1 Antibody Multi-Spot Reactive (Non Reactive); HIV 2 Antibody Multi-Spot Non Reactive (Non Reactive); HIV Multi-spot Interp HIV-1 Positive (.)
[2021-04-05 19:37] LABS: LOG10 HIV-1 RNA 3.952 (.)
[2021-04-05] MEDS: Atorvastatin Calcium 40 MG TAB PO SCH (20:27)
[2021-04-05] MEDS: NIFEdipine XL 60 MG TAB PO SCH (20:28)
[2021-04-05] MEDS: Melatonin 3 MG TAB PO PRN (20:44)
[2021-04-05] MEDS ORDERED: NIFEdipine XL 90 MG TAB PO SCH (21:00)
[2021-04-06 06:59] LABS: #Eosinphils 0.5 thou/uL (0.0-0.7); #Monocytes 0.4 thou/uL (0.11-0.59); #Neutrophils 3.4 thou/uL (1.40-6.50); %Basophils 0.5 % (0.0-1.0); %Eosinophils 8.5 % (0.0-10.0); %Lymphocytes 18.8 % (21.0-51.0); %Monocytes 7.8 % (0.0-10.0); %Neutrophils 64.4 % (42.0-75.0); Hemoglobin 8.2 g/dL (14.0-18.0); Mean Corpuscular HGB CONC 30.9 g/dL (32.0-36.0); Mean Corpuscular Hemoglobin 27.6 pg (27.0-31.0); Mean Corpuscular Volume 89.2 fL (78.0-98.0); Mean Platelet Volume 7.2 fL (7.4-10.4); Platelet Count 328 thou/uL (130-400); RBC Distribution Width 16.3 % (11.5-14.5); Red Blood Cell (RBC) Count 2.96 mill/uL (4.70-6.10); White Blood Cell (WBC) Count 5.3 thou/uL (4.8-10.8)
[2021-04-06 07:24] LABS: ALT (SGPT) 13 U/L (8-55); AST (SGOT) 25 U/L (5-34); Albumin 2.6 g/dL (3.5-5.0); Alkaline Phosphatase 133 U/L (40-110); Anion Gap 21 mmol/L (10-20); BUN (Urea Nitrogen) 35 mg/dL (8.4-25.7); Bilirubin, Total 0.5 mg/dL (0.2-1.2); Calc. Creatinine Clearance 9 mL/min (70-130); Carbon Dioxide 24 mmol/L (22-29); Chloride 94 mmol/L (98-107); Glucose 75 mg/dL (70-105); Potassium 3.8 mmol/L (3.5-5.1); Protein, Total 7.6 g/dL (6.0-8.3); Sodium 135 mmol/L (136-145)
[2021-04-06 08:05] LABS: CSF, Glucose 35 mg/dl (40-70); CSF, Protein 155 mg/dL (15-40)
[2021-04-06 08:21] LABS: CSF RBC Count - Manual 0 /cu.mm (None Seen); CSF Source CSF; CSF WBC/NonHematics Count-Man 4 /cu.mm (0-5); Clarity Clear (Clear); Tube # 4
[2021-04-06] MEDS: Fluticasone Propionate Nasal Spray 16 gm Bottle NASAL SCH (09:25)
[2021-04-06] MEDS: Aspirin 81 mg Enteric Coated Tablet PO SCH (09:26)
[2021-04-06] MEDS: NIFEdipine XL 60 MG TAB PO SCH ×2 (09:26→20:25)
[2021-04-06] MEDS: hydrALAZINE 25 MG TAB PO SCH ×3 (09:27→20:24)
[2021-04-06] MEDS: Labetalol 100 MG TAB PO SCH ×2 (09:28→20:25)
[2021-04-06] MEDS: Apixaban 5 MG TAB PO SCH ×2 (09:28→20:25)
[2021-04-06] MEDS: Lisinopril 20 MG TAB PO SCH ×2 (09:28→20:26)
[2021-04-06] MEDS ORDERED: Minoxidil 2.5 MG TAB PO SCH ×2 (12:54→13:00)
[2021-04-06] MEDS: cefTRIAXone\\ROCEPHIN 2 GM in Sodium Chloride 0.9% 100 ML IVPB SCH (13:56)
[2021-04-06] MEDS: Melatonin 3 MG TAB PO PRN (20:25)
[2021-04-06] MEDS: Atorvastatin Calcium 40 MG TAB PO SCH (20:25)
[2021-04-06] MEDS: Raltegravir Potassium 400 MG TAB PO SCH (20:25)
[2021-04-07] MEDS ORDERED: diphenhydrAMINE 50 MG/ML VIAL IVP SCH (01:15)
[2021-04-07] MEDS ORDERED: Aquaphor 30 GM JAR TOP PRN (09:19)
[2021-04-07] MEDS: Raltegravir Potassium 400 MG TAB PO SCH ×2 (09:27→20:29)
[2021-04-07] MEDS: hydrALAZINE 25 MG TAB PO SCH ×3 (09:27→20:30)
[2021-04-07] MEDS: NIFEdipine XL 60 MG TAB PO SCH ×2 (09:27→20:29)
[2021-04-07] MEDS: Labetalol 100 MG TAB PO SCH ×2 (09:28→20:30)
[2021-04-07] MEDS: Lisinopril 20 MG TAB PO SCH ×2 (09:29→20:30)
[2021-04-07] MEDS: Aspirin 81 mg Enteric Coated Tablet PO SCH (09:29)
[2021-04-07] MEDS: Minoxidil 2.5 MG TAB PO SCH (09:29)
[2021-04-07] MEDS: Apixaban 5 MG TAB PO SCH ×2 (09:29→20:31)
[2021-04-07] MEDS ORDERED: guaiFENesin/DM ER PO SCH (09:30)
[2021-04-07] MEDS: Fluticasone Propionate Nasal Spray 16 gm Bottle NASAL SCH (09:31)
[2021-04-07] MEDS: cefTRIAXone\\ROCEPHIN 2 GM in Sodium Chloride 0.9% 100 ML IVPB SCH (11:30)
[2021-04-07 14:56] LABS: Hemoglobin 8.4 g/dL (14.0-18.0); Mean Corpuscular HGB CONC 30.7 g/dL (32.0-36.0); Mean Corpuscular Hemoglobin 27.8 pg (27.0-31.0); Mean Corpuscular Volume 90.4 fL (78.0-98.0); Mean Platelet Volume 7.5 fL (7.4-10.4); Platelet Count 315 thou/uL (130-400); RBC Distribution Width 16.2 % (11.5-14.5); Red Blood Cell (RBC) Count 3.01 mill/uL (4.70-6.10); White Blood Cell (WBC) Count 6.4 thou/uL (4.8-10.8)
[2021-04-07 15:16] LABS: Anisocytosis SLIGHT = 6-15 cells (100X) (0-5/hpf); Band 1 % (5-11); Eosinophils 8 % (0-10); Lymphocytes 20 % (21-51); MDiff Complete? YES; Monocytes 9 % (0-10); Neutrophil 61 % (42-75); Platelet Morphology Comment Appears Adequate; Polychromasia SLIGHT = 2-3 cells (100X) (0-2/hpf)
[2021-04-07 15:30] LABS: ALT (SGPT) 15 U/L (8-55); AST (SGOT) 31 U/L (5-34); Albumin 2.7 g/dL (3.5-5.0); Alkaline Phosphatase 128 U/L (40-110); Anion Gap 18 mmol/L (10-20); BUN (Urea Nitrogen) 28 mg/dL (8.4-25.7); Bilirubin, Total 0.5 mg/dL (0.2-1.2); Calc. Creatinine Clearance 12 mL/min (70-130); Calcium 8.3 mg/dL (7.8-10.44); Carbon Dioxide 27 mmol/L (22-29); Chloride 97 mmol/L (98-107); Globulin 5.3 g/dL (2.4-3.5); Glucose 81 mg/dL (70-105); Potassium 3.8 mmol/L (3.5-5.1); Sodium 138 mmol/L (136-145)
[2021-04-07] MEDS: Acetaminophen 325 MG TAB PO PRN ×2 (16:54→20:31)
[2021-04-07] MEDS: Melatonin 3 MG TAB PO PRN (20:31)
[2021-04-07] MEDS: Atorvastatin Calcium 40 MG TAB PO SCH (20:31)
[2021-04-07] MEDS: guaiFENesin/DM ER PO SCH (20:31)
[2021-04-07] MEDS: Diclofenac 1% 100 GM GEL TP PRN (20:32)
[2021-04-08] MEDS: Raltegravir Potassium 400 MG TAB PO SCH ×2 (09:09→20:39)
[2021-04-08] MEDS: Aspirin 81 mg Enteric Coated Tablet PO SCH (09:09)
[2021-04-08] MEDS: Minoxidil 2.5 MG TAB PO SCH (09:09)
[2021-04-08] MEDS: guaiFENesin/DM ER PO SCH ×2 (09:09→20:39)
[2021-04-08] MEDS: Lisinopril 20 MG TAB PO SCH ×3 (09:10→20:40)
[2021-04-08] MEDS: Apixaban 5 MG TAB PO SCH ×2 (09:10→20:39)
[2021-04-08] MEDS: Acetaminophen 325 MG TAB PO PRN (09:11)
[2021-04-08] MEDS: cefTRIAXone\\ROCEPHIN 2 GM in Sodium Chloride 0.9% 100 ML IVPB SCH (11:41)
[2021-04-08] MEDS: HYDROcodone/Acetaminophen 5/325 mg Tablet PO PRN ×2 (13:50→20:40)
[2021-04-08] MEDS: Labetalol 100 MG TAB PO SCH ×2 (14:19→20:41)
[2021-04-08] MEDS: hydrALAZINE 25 MG TAB PO SCH ×3 (14:19→20:41)
[2021-04-08] MEDS: Fluticasone Propionate Nasal Spray 16 gm Bottle NASAL SCH (14:19)
[2021-04-08] MEDS: NIFEdipine XL 60 MG TAB PO SCH ×2 (14:20→20:40)
[2021-04-08 18:33] LABS: #Eosinphils 0.5 thou/uL (0.0-0.7); #Lymphocytes 1.2 thou/uL (1.20-3.40); #Monocytes 0.4 thou/uL (0.11-0.59); #Neutrophils 6.8 thou/uL (1.40-6.50); %Basophils 0.4 % (0.0-1.0); %Eosinophils 5.6 % (0.0-10.0); %Lymphocytes 13.7 % (21.0-51.0); %Monocytes 4.3 % (0.0-10.0); Hemoglobin 8.8 g/dL (14.0-18.0); Mean Corpuscular Hemoglobin 26.7 pg (27.0-31.0); Mean Corpuscular Volume 88.9 fL (78.0-98.0); Mean Platelet Volume 7.2 fL (7.4-10.4); Platelet Count 432 thou/uL (130-400); RBC Distribution Width 16.3 % (11.5-14.5); White Blood Cell (WBC) Count 8.9 thou/uL (4.8-10.8)
[2021-04-08 18:58] LABS: ALT (SGPT) 17 U/L (8-55); AST (SGOT) 37 U/L (5-34); Albumin 3.3 g/dL (3.5-5.0); Alkaline Phosphatase 133 U/L (40-110); Anion Gap 17 mmol/L (10-20); BUN (Urea Nitrogen) 19 mg/dL (8.4-25.7); Bilirubin, Total 0.5 mg/dL (0.2-1.2); Calc. Creatinine Clearance 19 mL/min (70-130); Calcium 8.8 mg/dL (7.8-10.44); Carbon Dioxide 28 mmol/L (22-29); Chloride 97 mmol/L (98-107); Globulin 6.3 g/dL (2.4-3.5); Glucose 82 mg/dL (70-105); Potassium 3.5 mmol/L (3.5-5.1); Protein, Total 9.6 g/dL (6.0-8.3); Sodium 138 mmol/L (136-145)
[2021-04-08] MEDS: Atorvastatin Calcium 40 MG TAB PO SCH (20:39)
[2021-04-09] MEDS: HYDROcodone/Acetaminophen 5/325 mg Tablet PO PRN ×5 (01:20→19:54)
[2021-04-09 05:55] LABS: #Eosinphils 0.4 thou/uL (0.0-0.7); #Lymphocytes 1.2 thou/uL (1.20-3.40); #Monocytes 0.4 thou/uL (0.11-0.59); #Neutrophils 4.9 thou/uL (1.40-6.50); %Basophils 0.4 % (0.0-1.0); %Eosinophils 6.3 % (0.0-10.0); %Lymphocytes 16.5 % (21.0-51.0); %Monocytes 5.9 % (0.0-10.0); %Neutrophils 70.9 % (42.0-75.0); Hemoglobin 8.5 g/dL (14.0-18.0); Mean Corpuscular HGB CONC 30.9 g/dL (32.0-36.0); Mean Corpuscular Hemoglobin 27.8 pg (27.0-31.0); Mean Platelet Volume 7.3 fL (7.4-10.4); Platelet Count 406 thou/uL (130-400); RBC Distribution Width 16.1 % (11.5-14.5); Red Blood Cell (RBC) Count 3.07 mill/uL (4.70-6.10)
[2021-04-09 06:21] LABS: ALT (SGPT) 14 U/L (8-55); AST (SGOT) 29 U/L (5-34); Alkaline Phosphatase 113 U/L (40-110); Anion Gap 18 mmol/L (10-20); BUN (Urea Nitrogen) 30 mg/dL (8.4-25.7); Bilirubin, Total 0.5 mg/dL (0.2-1.2); Calc. Creatinine Clearance 12 mL/min (70-130); Calcium 8.4 mg/dL (7.8-10.44); Carbon Dioxide 25 mmol/L (22-29); Chloride 97 mmol/L (98-107); Globulin 5.7 g/dL (2.4-3.5); Glucose 82 mg/dL (70-105); Potassium 4.1 mmol/L (3.5-5.1); Protein, Total 8.7 g/dL (6.0-8.3); Sodium 136 mmol/L (136-145)
[2021-04-09] MEDS: Aquaphor 85 GM TUBE TOP PRN ×2 (08:12→17:58)
[2021-04-09] MEDS: hydrALAZINE 25 MG TAB PO SCH ×3 (08:23→21:55)
[2021-04-09] MEDS: NIFEdipine XL 60 MG TAB PO SCH ×2 (08:23→21:56)
[2021-04-09] MEDS: Lisinopril 20 MG TAB PO SCH ×2 (08:24→21:55)
[2021-04-09] MEDS: Labetalol 100 MG TAB PO SCH ×2 (08:24→21:56)
[2021-04-09] MEDS: guaiFENesin/DM ER PO SCH ×2 (08:24→21:57)
[2021-04-09] MEDS: Raltegravir Potassium 400 MG TAB PO SCH ×2 (08:24→21:56)
[2021-04-09] MEDS: Apixaban 5 MG TAB PO SCH ×2 (08:24→21:57)
[2021-04-09] MEDS: Aspirin 81 mg Enteric Coated Tablet PO SCH (08:25)
[2021-04-09] MEDS: Fluticasone Propionate Nasal Spray 16 gm Bottle NASAL SCH (08:26)
[2021-04-09] MEDS: Sodium Chloride 0.65% Nasal 44 ML BOT EA NARE PRN (08:26)
[2021-04-09] MEDS ORDERED: Ondansetron ODT 4 MG TAB PO SCH (08:51)
[2021-04-09] MEDS ORDERED: Lactated Ringer's 500 ML IV SCH (09:00)
[2021-04-09] MEDS: cefTRIAXone\\ROCEPHIN 2 GM in Sodium Chloride 0.9% 100 ML IVPB SCH (10:40)
[2021-04-09] MEDS: Atorvastatin Calcium 40 MG TAB PO SCH (21:55)
[2021-04-09] MEDS ORDERED: Ondansetron PF 4 MG/2 ML Vial IVP SCH (23:45)
[2021-04-10] MEDS: Morphine 4 MG/ML VIAL SLOW IVP PRN ×2 (00:04→13:19)
[2021-04-10 06:55] LABS: #Eosinphils 0.6 thou/uL (0.0-0.7); #Lymphocytes 0.9 thou/uL (1.20-3.40); #Monocytes 0.4 thou/uL (0.11-0.59); #Neutrophils 4.2 thou/uL (1.40-6.50); %Basophils 0.2 % (0.0-1.0); %Eosinophils 9.1 % (0.0-10.0); %Monocytes 7.2 % (0.0-10.0); %Neutrophils 68.5 % (42.0-75.0); Mean Corpuscular HGB CONC 30.6 g/dL (32.0-36.0); Mean Corpuscular Volume 91.6 fL (78.0-98.0); Platelet Count 432 thou/uL (130-400); Red Blood Cell (RBC) Count 3.22 mill/uL (4.70-6.10); White Blood Cell (WBC) Count 6.1 thou/uL (4.8-10.8)
[2021-04-10] MEDS ORDERED: Promethazine HCl 12.5 MG in Sodium Chloride 0.9% 50 ML IVPB SCH ×2 (07:00→09:30)
[2021-04-10 07:06] LABS: ALT (SGPT) 15 U/L (8-55); AST (SGOT) 28 U/L (5-34); Alkaline Phosphatase 106 U/L (40-110); Anion Gap 20 mmol/L (10-20); BUN (Urea Nitrogen) 44 mg/dL (8.4-25.7); Bilirubin, Total 0.5 mg/dL (0.2-1.2); Calc. Creatinine Clearance 9 mL/min (70-130); Calcium 8.5 mg/dL (7.8-10.44); Carbon Dioxide 27 mmol/L (22-29); Chloride 95 mmol/L (98-107); Globulin 5.7 g/dL (2.4-3.5); Glucose 87 mg/dL (70-105); Potassium 4.5 mmol/L (3.5-5.1); Protein, Total 8.7 g/dL (6.0-8.3); Sodium 137 mmol/L (136-145)
[2021-04-10] MEDS: Labetalol 100 MG TAB PO SCH ×2 (09:51→20:51)
[2021-04-10] MEDS: hydrALAZINE 25 MG TAB PO SCH ×3 (09:51→20:51)
[2021-04-10] MEDS: Apixaban 5 MG TAB PO SCH ×2 (09:51→20:50)
[2021-04-10] MEDS: Aspirin 81 mg Enteric Coated Tablet PO SCH (09:51)
[2021-04-10] MEDS: NIFEdipine XL 60 MG TAB PO SCH ×2 (09:51→20:52)
[2021-04-10] MEDS: Lisinopril 20 MG TAB PO SCH ×2 (09:51→20:51)
[2021-04-10] MEDS: Fluticasone Propionate Nasal Spray 16 gm Bottle NASAL SCH (09:52)
[2021-04-10] MEDS: Raltegravir Potassium 400 MG TAB PO SCH ×2 (10:18→20:52)
[2021-04-10] MEDS: HYDROcodone/Acetaminophen 5/325 mg Tablet PO PRN (10:18)
[2021-04-10] MEDS: guaiFENesin/DM ER PO SCH ×2 (10:18→20:50)
[2021-04-10] MEDS: cefTRIAXone\\ROCEPHIN 2 GM in Sodium Chloride 0.9% 100 ML IVPB SCH (13:20)
[2021-04-10] MEDS: Atorvastatin Calcium 40 MG TAB PO SCH (20:50)
[2021-04-11] MEDS: HYDROcodone/Acetaminophen 5/325 mg Tablet PO PRN ×3 (01:05→16:02)
[2021-04-11] MEDS: Morphine 4 MG/ML VIAL SLOW IVP PRN (01:05)
[2021-04-11] MEDS ORDERED: Ondansetron PF 4 MG/2 ML Vial IVP SCH (08:45)
[2021-04-11] MEDS: Aspirin 81 mg Enteric Coated Tablet PO SCH (10:42)
[2021-04-11] MEDS: NIFEdipine XL 60 MG TAB PO SCH ×2 (10:42→21:42)
[2021-04-11] MEDS: Labetalol 100 MG TAB PO SCH ×2 (10:43→21:42)
[2021-04-11] MEDS: Apixaban 5 MG TAB PO SCH ×2 (10:43→21:43)
[2021-04-11] MEDS: hydrALAZINE 25 MG TAB PO SCH ×3 (10:44→21:43)
[2021-04-11] MEDS: Lisinopril 20 MG TAB PO SCH ×2 (11:51→21:48)
[2021-04-11] MEDS: Fluticasone Propionate Nasal Spray 16 gm Bottle NASAL SCH (11:51)
[2021-04-11] MEDS: guaiFENesin/DM ER PO SCH ×2 (12:06→21:43)
[2021-04-11] MEDS: cefTRIAXone\\ROCEPHIN 2 GM in Sodium Chloride 0.9% 100 ML IVPB SCH (12:06)
[2021-04-11] MEDS: Raltegravir Potassium 400 MG TAB PO SCH ×2 (12:11→22:52)
[2021-04-11 14:12] LABS: #Eosinphils 0.5 thou/uL (0.0-0.7); #Monocytes 0.5 thou/uL (0.11-0.59); %Basophils 0.2 % (0.0-1.0); %Eosinophils 7.3 % (0.0-10.0); %Lymphocytes 14.5 % (21.0-51.0); %Monocytes 7.5 % (0.0-10.0); %Neutrophils 70.5 % (42.0-75.0); Hemoglobin 8.7 g/dL (14.0-18.0); Mean Corpuscular HGB CONC 31.4 g/dL (32.0-36.0); Mean Corpuscular Hemoglobin 28.1 pg (27.0-31.0); Mean Corpuscular Volume 89.4 fL (78.0-98.0); Platelet Count 473 thou/uL (130-400); RBC Distribution Width 15.6 % (11.5-14.5); White Blood Cell (WBC) Count 7.1 thou/uL (4.8-10.8)
[2021-04-11 14:24] LABS: ALT (SGPT) 15 U/L (8-55); AST (SGOT) 33 U/L (5-34); Alkaline Phosphatase 106 U/L (40-110); Anion Gap 20 mmol/L (10-20); BUN (Urea Nitrogen) 32 mg/dL (8.4-25.7); Bilirubin, Total 0.4 mg/dL (0.2-1.2); Calc. Creatinine Clearance 13 mL/min (70-130); Calcium 8.6 mg/dL (7.8-10.44); Carbon Dioxide 27 mmol/L (22-29); Chloride 96 mmol/L (98-107); Globulin 5.9 g/dL (2.4-3.5); Glucose 70 mg/dL (70-105); Potassium 4.5 mmol/L (3.5-5.1); Protein, Total 8.9 g/dL (6.0-8.3); Sodium 138 mmol/L (136-145)
[2021-04-11] MEDS: Aquaphor 85 GM TUBE TOP PRN (16:33)
[2021-04-11] MEDS ORDERED: Fentanyl 100 MCG/2 ML VIAL SLOW IVP PRN (19:49)
[2021-04-11] MEDS ORDERED: Fentanyl 100 MCG/2 ML VIAL SLOW IVP SCH (20:00)
[2021-04-11] MEDS: Atorvastatin Calcium 40 MG TAB PO SCH (21:42)
[2021-04-11] MEDS: Silver Sulfadiazine 50 GM TUBE TOP SCH (21:48)
[2021-04-11] MEDS: Melatonin 3 MG TAB PO PRN (22:52)
[2021-04-12 06:55] LABS: #Eosinphils 0.5 thou/uL (0.0-0.7); #Lymphocytes 1.2 thou/uL (1.20-3.40); #Monocytes 0.7 thou/uL (0.11-0.59); #Neutrophils 4.7 thou/uL (1.40-6.50); %Basophils 0.6 % (0.0-1.0); %Eosinophils 7.6 % (0.0-10.0); %Lymphocytes 16.6 % (21.0-51.0); %Monocytes 9.2 % (0.0-10.0); Hemoglobin 8.7 g/dL (14.0-18.0); Mean Corpuscular HGB CONC 29.6 g/dL (32.0-36.0); Mean Corpuscular Hemoglobin 28.6 pg (27.0-31.0); Mean Corpuscular Volume 96.5 fL (78.0-98.0); Mean Platelet Volume 7.3 fL (7.4-10.4); Platelet Count 483 thou/uL (130-400); RBC Distribution Width 15.8 % (11.5-14.5); Red Blood Cell (RBC) Count 3.05 mill/uL (4.70-6.10); White Blood Cell (WBC) Count 7.2 thou/uL (4.8-10.8)
[2021-04-12 07:12] LABS: ALT (SGPT) 14 U/L (8-55); AST (SGOT) 29 U/L (5-34); Albumin 2.9 g/dL (3.5-5.0); Alkaline Phosphatase 105 U/L (40-110); Anion Gap 22 mmol/L (10-20); BUN (Urea Nitrogen) 40 mg/dL (8.4-25.7); Bilirubin, Total 0.5 mg/dL (0.2-1.2); Calc. Creatinine Clearance 10 mL/min (70-130); Calcium 8.3 mg/dL (7.8-10.44); Carbon Dioxide 25 mmol/L (22-29); Chloride 97 mmol/L (98-107); Globulin 5.2 g/dL (2.4-3.5); Glucose 61 mg/dL (70-105); Potassium 4.8 mmol/L (3.5-5.1); Protein, Total 8.1 g/dL (6.0-8.3); Sodium 138 mmol/L (136-145)
[2021-04-12 08:34] LABS: Hypochromia SLIGHT = 6-15 cells (100X) (0-5/hpf); MDiff Complete? YES; Platelet Morphology Comment Appears Increased; Polychromasia SLIGHT = 2-3 cells (100X) (0-2/hpf)
[2021-04-12] MEDS: Labetalol 100 MG TAB PO SCH ×2 (09:07→21:02)
[2021-04-12] MEDS: guaiFENesin/DM ER PO SCH ×2 (09:07→21:03)
[2021-04-12] MEDS: Lisinopril 20 MG TAB PO SCH (09:07)
[2021-04-12] MEDS: hydrALAZINE 25 MG TAB PO SCH ×3 (09:07→21:04)
[2021-04-12] MEDS: NIFEdipine XL 60 MG TAB PO SCH ×2 (09:08→21:03)
[2021-04-12] MEDS: Raltegravir Potassium 400 MG TAB PO SCH ×2 (09:08→21:04)
[2021-04-12] MEDS: Aspirin 81 mg Enteric Coated Tablet PO SCH (09:08)
[2021-04-12] MEDS: Apixaban 5 MG TAB PO SCH ×2 (09:08→21:03)
[2021-04-12] MEDS: Silver Sulfadiazine 50 GM TUBE TOP SCH (09:10)
[2021-04-12] MEDS: HYDROcodone/Acetaminophen 5/325 mg Tablet PO PRN (09:22)
[2021-04-12] MEDS: Fluticasone Propionate Nasal Spray 16 gm Bottle NASAL SCH (09:23)
[2021-04-12] MEDS: cefTRIAXone\\ROCEPHIN 2 GM in Sodium Chloride 0.9% 100 ML IVPB SCH (11:20)
[2021-04-12 12:49] VITALS: BMI 26.7
[2021-04-12] MEDS: Atorvastatin Calcium 40 MG TAB PO SCH (21:02)
[2021-04-12] MEDS: Acetaminophen 325 MG TAB PO PRN (21:07)
[2021-04-12] MEDS: Melatonin 3 MG TAB PO PRN (21:07)
[2021-04-13] MEDS: HYDROcodone/Acetaminophen 5/325 mg Tablet PO PRN (02:00)
[2021-04-13 08:35] LABS: #Eosinphils 0.5 thou/uL (0.0-0.7); #Lymphocytes 1.2 thou/uL (1.20-3.40); #Monocytes 0.7 thou/uL (0.11-0.59); #Neutrophils 5.1 thou/uL (1.40-6.50); %Basophils 0.3 % (0.0-1.0); %Lymphocytes 16.3 % (21.0-51.0); %Neutrophils 67.4 % (42.0-75.0); Hemoglobin 9.2 g/dL (14.0-18.0); Mean Corpuscular HGB CONC 31.6 g/dL (32.0-36.0); Mean Corpuscular Hemoglobin 28.1 pg (27.0-31.0); Mean Corpuscular Volume 88.8 fL (78.0-98.0); Mean Platelet Volume 7.2 fL (7.4-10.4); Platelet Count 494 thou/uL (130-400); RBC Distribution Width 15.6 % (11.5-14.5); Red Blood Cell (RBC) Count 3.27 mill/uL (4.70-6.10); White Blood Cell (WBC) Count 7.5 thou/uL (4.8-10.8)
[2021-04-13 08:55] LABS: ALT (SGPT) 16 U/L (8-55); AST (SGOT) 31 U/L (5-34); Albumin 3.1 g/dL (3.5-5.0); Alkaline Phosphatase 104 U/L (40-110); Anion Gap 19 mmol/L (10-20); BUN (Urea Nitrogen) 28 mg/dL (8.4-25.7); Bilirubin, Total 0.4 mg/dL (0.2-1.2); Calc. Creatinine Clearance 14 mL/min (70-130); Calcium 9.2 mg/dL (7.8-10.44); Carbon Dioxide 26 mmol/L (22-29); Chloride 95 mmol/L (98-107); Globulin 6.1 g/dL (2.4-3.5); Glucose 60 mg/dL (70-105); Potassium 4.6 mmol/L (3.5-5.1); Protein, Total 9.2 g/dL (6.0-8.3); Sodium 135 mmol/L (136-145)
[2021-04-13] MEDS ORDERED: Lisinopril 20 MG TAB PO SCH (09:00)
[2021-04-13] MEDS: Apixaban 5 MG TAB PO SCH (10:44)
[2021-04-13] MEDS: NIFEdipine XL 60 MG TAB PO SCH (10:44)
[2021-04-13] MEDS: Aspirin 81 mg Enteric Coated Tablet PO SCH (10:45)
[2021-04-13] MEDS: guaiFENesin/DM ER PO SCH (10:46)
[2021-04-13] MEDS: cefTRIAXone\\ROCEPHIN 2 GM in Sodium Chloride 0.9% 100 ML IVPB SCH (10:47)
[2021-04-13] MEDS: Fluticasone Propionate Nasal Spray 16 gm Bottle NASAL SCH (10:50)
[2021-04-13] MEDS: hydrALAZINE 25 MG TAB PO SCH (11:16)
[2021-04-13] MEDS: Labetalol 100 MG TAB PO SCH (11:17)
[2021-04-13 12:30] VITALS: BP 123/67; TEMP 97.1
[2021-04-13 13:20] LABS: Actual Bicarbonate (HCO3a) 27.8 mEq/L (22-28); Base Excess (BEa) 2.8 mEq/L (-2.0 to +3.0); CO2 Tension 44.7 mmHg (35.0-45.0); Calcium, Ionized (arterial) 1.12 mmol/L (1.12-1.30); Carboxyhemoglobin (COHb) 1.6 gm% (0.0-3.0); Hemoglobin (Hb) 9.6 g/dL (14.0-18.0); O2 Tension (PaO2), arterial 83.9 mmHg (80.0-100.0); pH, Arterial 7.41 (7.35-7.45)
[2021-04-13 13:21] LABS: ALV-art Gradient 9.955 mmHg (0-20); Puncture Site RRA
[2021-04-13] MEDS: Raltegravir Potassium 400 MG TAB PO SCH (14:17)
== END 2021-04-13 16:04 | DRG 974 ==
LOC: ERS 07:47 → ERHOLD 11:12 → 2SW 16:16 → OBSVTOIN 04-05 10:41 → T4-B 04-11 15:01
PROVIDERS: ADMIT Family Medicine; ATTEND Family Medicine
PROC: 8E0ZXY6 Isolation (ICD-10-PCS; principal; 2021-04-05)
PROC: 009U3ZX Drainage of Spinal Canal, Percutaneous Approach, Diagnostic (ICD-10-PCS; 2021-04-05)
PROC: 5A1D70Z Performance of Urinary Filtration, Intermittent, Less than 6 Hours Per Day (ICD-10-PCS; 2021-04-13)
DX: B20 Human immunodeficiency virus [HIV] disease (principal); U07.1 COVID-19; N18.6 End stage renal disease; I13.2 Hypertensive heart and chronic kidney disease with heart failure and with stage 5 chronic kidney disease, or end stage renal disease; I50.42 Chronic combined systolic (congestive) and diastolic (congestive) heart failure; A51.49 Other secondary syphilitic conditions; A52.3 Neurosyphilis, unspecified; R04.2 Hemoptysis; I16.0 Hypertensive urgency; H49.20 Sixth [abducent] nerve palsy, unspecified eye; E11.21 Type 2 diabetes mellitus with diabetic nephropathy; E11.22 Type 2 diabetes mellitus with diabetic chronic kidney disease; R21 Rash and other nonspecific skin eruption; D63.1 Anemia in chronic kidney disease; R79.89 Other specified abnormal findings of blood chemistry; E88.09 Other disorders of plasma-protein metabolism, not elsewhere classified; Z79.899 Other long term (current) drug therapy; Z79.82 Long term (current) use of aspirin; Z99.2 Dependence on renal dialysis; Z89.412 Acquired absence of left great toe; Z89.411 Acquired absence of right great toe; I69.322 Dysarthria following cerebral infarction; Z86.718 Personal history of other venous thrombosis and embolism; Z86.711 Personal history of pulmonary embolism; Z79.01 Long term (current) use of anticoagulants
CPT/HCPCS: 0240U; 36415; 36416; 36600; 51701; 62270; 70450; 70544; 70551; 71045; 80053; 80061; 81003; 81015; 82553; 82805; 82945; 83036; 83880; 84157; 84443; 84484; 85025; 85048; 85610; 85730; 86361; 86592; 86701; 86702; 87086; 87324; 87389; 87449; 87536; 87899; 89051; 90935; 93005; 93010; 96374; G0257; G0378; J0360; J0696; J1200; J2270; J2405; J2550; J3010; J3490; J7120; Q0162

== ENCOUNTER 2021-07-12 12:43 | Inpatient (IN) | payer MEDICARE ==
[2021-07-12 13:17] LABS: #Basophils 0.1 thou/uL (0.0-0.2); #Eosinphils 0.6 thou/uL (0.0-0.7); #Monocytes 0.6 thou/uL (0.11-0.59); #Neutrophils 3.5 thou/uL (1.40-6.50); %Eosinophils 8.2 % (0.0-10.0); %Lymphocytes 29.4 % (21.0-51.0); %Monocytes 9.4 % (0.0-10.0); Hemoglobin 13.4 g/dL (14.0-18.0); Mean Corpuscular HGB CONC 31.9 g/dL (32.0-36.0); Mean Corpuscular Hemoglobin 30.4 pg (27.0-31.0); Mean Corpuscular Volume 95.2 fL (78.0-98.0); Mean Platelet Volume 7.6 fL (7.4-10.4); Platelet Count 252 thou/uL (130-400); RBC Distribution Width 15.2 % (11.5-14.5); White Blood Cell (WBC) Count 6.8 thou/uL (4.8-10.8)
[2021-07-12 13:34] LABS: INR-International Normal Ratio 1.2; Prothrombin Time 15.8 sec (12.0-14.7)
[2021-07-12 13:35] LABS: PTT 44.1 sec (22.9-36.1)
[2021-07-12 13:37] LABS: ALT (SGPT) 14 U/L (8-55); AST (SGOT) 17 U/L (5-34); Alkaline Phosphatase 54 U/L (40-110); Anion Gap 18 mmol/L (10-20); BUN (Urea Nitrogen) 78 mg/dL (8.4-25.7); Bilirubin, Total 0.4 mg/dL (0.2-1.2); Calc. Creatinine Clearance 0 mL/min (70-130); Calcium 9.3 mg/dL (7.8-10.44); Carbon Dioxide 30 mmol/L (22-29); Chloride 92 mmol/L (98-107); Glucose 93 mg/dL (70-105); Potassium 5.6 mmol/L (3.5-5.1); Sodium 134 mmol/L (136-145)
[2021-07-13] MEDS ORDERED: Ondansetron PF 4 MG/2 ML Vial IVP PRN (04:19)
[2021-07-13] MEDS ORDERED: Acetaminophen 650 MG Suppository PR PRN (04:19)
[2021-07-13] MEDS ORDERED: Acetaminophen 325 MG TAB PO PRN (04:19)
[2021-07-13] MEDS ORDERED: Ondansetron ODT 4 MG TAB PO PRN (04:19)
[2021-07-13 04:35] LABS: #Eosinphils 0.5 thou/uL (0.0-0.7); #Lymphocytes 1.6 thou/uL (1.20-3.40); #Monocytes 0.6 thou/uL (0.11-0.59); #Neutrophils 2.5 thou/uL (1.40-6.50); %Basophils 0.7 % (0.0-1.0); %Eosinophils 9.3 % (0.0-10.0); %Lymphocytes 31.4 % (21.0-51.0); %Neutrophils 47.6 % (42.0-75.0); Hemoglobin 12.3 g/dL (14.0-18.0); Mean Corpuscular HGB CONC 33.3 g/dL (32.0-36.0); Mean Corpuscular Hemoglobin 31.7 pg (27.0-31.0); Mean Platelet Volume 7.8 fL (7.4-10.4); Platelet Count 205 thou/uL (130-400); RBC Distribution Width 15.2 % (11.5-14.5); Red Blood Cell (RBC) Count 3.87 mill/uL (4.70-6.10); White Blood Cell (WBC) Count 5.2 thou/uL (4.8-10.8)
[2021-07-13 04:50] LABS: Anion Gap 14 mmol/L (10-20); BUN (Urea Nitrogen) 41 mg/dL (8.4-25.7); Calc. Creatinine Clearance 15 mL/min (70-130); Calcium 8.7 mg/dL (7.8-10.44); Carbon Dioxide 29 mmol/L (22-29); Chloride 96 mmol/L (98-107); Glucose 120 mg/dL (70-105); Potassium 4.4 mmol/L (3.5-5.1); Sodium 135 mmol/L (136-145)
[2021-07-13 05:17] VITALS: BMI 32.6
[2021-07-13 11:25] LABS: Troponin I 0.033 ng/mL (< 0.028)
[2021-07-14 08:51] LABS: Hep B Surf Ag Non-Reactive S/CO (NonReactive)
[2021-07-14 10:36] LABS: HBSAB Concentration 9.99 mIU/mL; Hep B Surf AB EQUIVOCAL (NonReactive)
[2021-07-14 14:57] VITALS: TEMP 98.6
[2021-07-14 16:12] VITALS: BP 148/78
== END 2021-07-14 16:40 | DRG 314 ==
LOC: ERS 12:43 → 2NO 15:57 → OBSVTOIN 07-13 10:17
PROVIDERS: ADMIT Hospitalist; ATTEND Hospitalist
PROC: 5A1D70Z Performance of Urinary Filtration, Intermittent, Less than 6 Hours Per Day (ICD-10-PCS; principal; 2021-07-13)
DX: I95.9 Hypotension, unspecified (principal); N18.6 End stage renal disease; E87.3 Alkalosis; Z20.822 Contact with and (suspected) exposure to COVID-19; I12.0 Hypertensive chronic kidney disease with stage 5 chronic kidney disease or end stage renal disease; Z21 Asymptomatic human immunodeficiency virus [HIV] infection status; E87.5 Hyperkalemia; I44.0 Atrioventricular block, first degree; D63.1 Anemia in chronic kidney disease; R55 Syncope and collapse; Z86.73 Personal history of transient ischemic attack (TIA), and cerebral infarction without residual deficits; Z79.01 Long term (current) use of anticoagulants; Z79.899 Other long term (current) drug therapy; Z99.2 Dependence on renal dialysis; Z89.411 Acquired absence of right great toe
CPT/HCPCS: 36415; 80048; 80053; 83605; 84484; 85025; 85610; 85730; 86706; 86850; 86900; 86901; 87040; 87340; 93005; 93010; 93306

== ENCOUNTER 2021-11-28 14:08 | Emergency (ER) | payer MEDICARE, MEDICAID ==
[2021-11-28] MEDS ORDERED: HYDROcodone/Acetaminophen 5/325 mg Tablet ONE (16:51)
== END 2021-11-28 17:30 | disposition home or self-care (01) ==
LOC: ERS 14:08
DX: S46.011A Strain of muscle(s) and tendon(s) of the rotator cuff of right shoulder, initial encounter (principal); I12.0 Hypertensive chronic kidney disease with stage 5 chronic kidney disease or end stage renal disease; E11.22 Type 2 diabetes mellitus with diabetic chronic kidney disease; N18.6 End stage renal disease; Z99.2 Dependence on renal dialysis; Z79.899 Other long term (current) drug therapy; X50.0XXA Overexertion from strenuous movement or load, initial encounter

== ENCOUNTER 2021-11-28 23:28 | Emergency (ER) | payer MEDICARE, MEDICAID ==
[2021-11-29] MEDS ORDERED: Ketorolac Tromethamine 30 MG/ML VIAL ONE (00:42)
== END 2021-11-29 01:11 | disposition home or self-care (01) ==
LOC: ERS 23:28
DX: M25.511 Pain in right shoulder (principal); I12.0 Hypertensive chronic kidney disease with stage 5 chronic kidney disease or end stage renal disease; E11.22 Type 2 diabetes mellitus with diabetic chronic kidney disease; N18.6 End stage renal disease; Z99.2 Dependence on renal dialysis; Z86.73 Personal history of transient ischemic attack (TIA), and cerebral infarction without residual deficits

== ENCOUNTER 2022-01-24 09:19 | Inpatient (IN) | payer MEDICARE, MEDICAID ==
[2022-01-24 10:53] LABS: #Eosinphils 0.1 thou/uL (0.0-0.7); #Lymphocytes 0.9 thou/uL (1.20-3.40); #Monocytes 0.3 thou/uL (0.11-0.59); #Neutrophils 5.6 thou/uL (1.40-6.50); %Basophils 0.3 % (0.0-1.0); %Eosinophils 1.3 % (0.0-10.0); %Lymphocytes 13.5 % (21.0-51.0); %Monocytes 4.1 % (0.0-10.0); %Neutrophils 80.8 % (42.0-75.0); Hemoglobin 11.8 g/dL (14.0-18.0); Mean Corpuscular HGB CONC 32.1 g/dL (32.0-36.0); Mean Corpuscular Hemoglobin 30.3 pg (27.0-31.0); Mean Corpuscular Volume 94.3 fl (78.0-98.0); Mean Platelet Volume 7.4 fL (7.4-10.4); Platelet Count 249 10x3/uL (130-400); RBC Distribution Width 13.3 % (11.5-14.5); Red Blood Cell (RBC) Count 3.89 mill/uL (4.70-6.10)
[2022-01-24 11:15] LABS: ALT (SGPT) Less than 7 U/L (8-55); AST (SGOT) 9 U/L (5-34); Albumin 3.7 g/dL (3.5-5.0); Alcohol Less than 10 mg/dL (Less than 10); Alkaline Phosphatase 94 U/L (40-110); Anion Gap 22 mmol/L (10-20); BUN (Urea Nitrogen) 43 mg/dL (8.4-25.7); Bilirubin, Total 0.6 mg/dL (0.2-1.2); CK (CPK) 172 U/L (30-200); Calc. Creatinine Clearance 0 mL/min (70-130); Calcium 7.7 mg/dL (7.8-10.44); Carbon Dioxide 26 mmol/L (22-29); Chloride 95 mmol/L (98-107); Estimated GFR 3; Globulin 3.7 g/dL (2.4-3.5); Glucose 124 mg/dL (70-105); Potassium 3.5 mmol/L (3.5-5.1); Protein, Total 7.4 g/dL (6.0-8.3); Sodium 139 mmol/L (136-145)
[2022-01-24] MEDS ORDERED: Lorazepam 2 MG/ML VIAL ONE ×2 (12:04→13:33)
[2022-01-24] MEDS ORDERED: levETIRAcetam 500 MG/5 ML VIAL ONE ×4 (12:04→13:36)
[2022-01-24] MEDS ORDERED: Midazolam HCl 5 mg/ml Vial ONE (12:09)
[2022-01-24 13:43] LABS: Bacteria/HPF None Seen HPF (None Seen); Bilirubin Negative (Negative); Blood, Urine 1+ (Negative); Clarity Clear (Clear); Glucose, Urine (Dipstick) 100 mg/dL (Negative); Ketone, Urine Negative (Negative); Leukocyte Negative Leu/uL (Negative); Nitrite Negative (Negative); Protein, Urine (Dipstick) 100 mg/dL (Neg-Trace); Squamous Epithelial 0-3 HPF (0-3); Urobilinogen Normal mg/dL (Less than 2); WBC/HPF 0-3 HPF (0-3); pH, Urine 7.5 (5.0-9.0)
[2022-01-24 13:46] LABS: Amphetamine Not Detected (NotDetected); Barbiturates Screen Not Detected (NotDetected); Benzodiazepine Screen Not Detected (NotDetected); Cocaine Metabolite Screen Detected (NotDetected); Methadone Not Detected (NotDetected); Methamphetamine Not Detected (NotDetected); Opiate Screen Not Detected (NotDetected); Oxycodone Screen Not Detected (NotDetected); Phencyclidine (PCP) Not Detected (NotDetected); THC/Cannabinoid Screen Not Detected (NotDetected); Tricyclic Screen Not Detected (NotDetected)
[2022-01-24] MEDS ORDERED: hydrALAZINE 20 MG/ML VIAL ONE (14:05)
[2022-01-24] MEDS ORDERED: Ondansetron PF 4 MG/2 ML Vial IVP PRN (14:44)
[2022-01-24] MEDS ORDERED: hydrALAZINE 20 MG/ML VIAL SLOW IVP PRN ×2 (14:47→23:44)
[2022-01-24 16:31] LABS: Magnesium 2.4 mg/dL (1.6-2.6); Phosphorus 4.3 mg/dL (2.3-4.7)
[2022-01-24 16:56] VITALS: BMI 31.8
[2022-01-24 16:56] LABS: Cardiac Risk 5.9 (Less than 4.5)
[2022-01-24] MEDS ORDERED: Dextrose 50% Abboject 50 ML SYRINGE SLOW IVP PRN (18:48)
[2022-01-24] MEDS ORDERED: HumaLOG 300 UNITS/3 ML VIAL SC PRN ×2 (18:48)
[2022-01-24] MEDS ORDERED: Dextrose 5% in Water 1,000 ML IV PRN (18:48)
[2022-01-24] MEDS ORDERED: Labetalol HCl 100 MG/20 ML VIAL SLOW IVP PRN ×3 (18:52→23:44)
[2022-01-24] MEDS: Pantoprazole 40 MG VIAL IVP SCH (19:57)
[2022-01-24 20:36] LABS: HBSAg Index 0.36 S/CO (0-0.99); Hep B Surf Ag Non-Reactive S/CO (NonReactive)
[2022-01-25 03:17] LABS: SARS-CoV-2 NAA Rapid Test Not Detected (NotDetected)
[2022-01-25 04:17] LABS: #Eosinphils 0.1 thou/uL (0.0-0.7); #Lymphocytes 1.6 thou/uL (1.20-3.40); #Monocytes 0.6 thou/uL (0.11-0.59); %Basophils 0.3 % (0.0-1.0); %Eosinophils 1.5 % (0.0-10.0); %Lymphocytes 19.1 % (21.0-51.0); %Monocytes 7.4 % (0.0-10.0); %Neutrophils 71.7 % (42.0-75.0); Hemoglobin 11.8 g/dL (14.0-18.0); Mean Corpuscular HGB CONC 34.1 g/dL (32.0-36.0); Mean Corpuscular Hemoglobin 32.4 pg (27.0-31.0); Mean Platelet Volume 7.5 fL (7.4-10.4); Platelet Count 236 10x3/uL (130-400); RBC Distribution Width 13.6 % (11.5-14.5); Red Blood Cell (RBC) Count 3.66 mill/uL (4.70-6.10); White Blood Cell (WBC) Count 8.4 10x3/uL (4.8-10.8)
[2022-01-25 04:32] LABS: Phosphorus 3.6 mg/dL (2.3-4.7)
[2022-01-25 04:33] LABS: ALT (SGPT) Less than 7 U/L (8-55); AST (SGOT) 11 U/L (5-34); Albumin 3.7 g/dL (3.5-5.0); Alkaline Phosphatase 96 U/L (40-110); Anion Gap 16 mmol/L (10-20); BUN (Urea Nitrogen) 21 mg/dL (8.4-25.7); Calc. Creatinine Clearance 11 mL/min (70-130); Calcium 8.4 mg/dL (7.8-10.44); Carbon Dioxide 27 mmol/L (22-29); Chloride 97 mmol/L (98-107); Estimated GFR 5; Globulin 3.7 g/dL (2.4-3.5); Glucose 88 mg/dL (70-105); Magnesium 2.1 mg/dL (1.6-2.6); Potassium 3.1 mmol/L (3.5-5.1); Protein, Total 7.4 g/dL (6.0-8.3); Sodium 137 mmol/L (136-145)
[2022-01-25] MEDS ORDERED: levETIRAcetam 500 MG/5 ML VIAL SLOW IVP SCH (09:00)
[2022-01-25] MEDS: Pantoprazole 40 MG VIAL IVP SCH (10:06)
[2022-01-25] MEDS ORDERED: hydrALAZINE 25 MG TAB PO SCH (10:15)
[2022-01-25] MEDS ORDERED: NIFEdipine XL 60 MG TAB PO SCH ×2 (12:15→21:00)
[2022-01-25] MEDS ORDERED: Labetalol HCl 100 MG/20 ML VIAL SLOW IVP PRN (13:38)
[2022-01-25] MEDS: hydrALAZINE 25 MG TAB PO SCH ×2 (14:05→20:38)
[2022-01-25] MEDS: Heparin 5,000 UNITS/ML VIAL SC SCH ×2 (14:06→20:38)
[2022-01-25] MEDS: NIFEdipine XL 90 MG TAB PO SCH (20:37)
[2022-01-25] MEDS: Atorvastatin Calcium 40 MG TAB PO SCH (20:38)
[2022-01-26] MEDS: Aspirin 81 mg Enteric Coated Tablet PO SCH (07:46)
[2022-01-26] MEDS: levETIRAcetam 500 MG TAB PO SCH (07:46)
[2022-01-26] MEDS: hydrALAZINE 25 MG TAB PO SCH ×3 (07:46→21:39)
[2022-01-26] MEDS: Folic Acid/Vit B Comp W-C PO SCH (07:47)
[2022-01-26] MEDS: Heparin 5,000 UNITS/ML VIAL SC SCH ×3 (07:47→21:35)
[2022-01-26] MEDS: Pantoprazole 40 MG VIAL IVP SCH (07:47)
[2022-01-26] MEDS: NIFEdipine XL 90 MG TAB PO SCH ×2 (07:47→21:34)
[2022-01-26 07:52] LABS: #Eosinphils 0.2 thou/uL (0.0-0.7); #Lymphocytes 1.4 thou/uL (1.20-3.40); #Monocytes 0.5 thou/uL (0.11-0.59); #Neutrophils 4.1 thou/uL (1.40-6.50); %Basophils 0.5 % (0.0-1.0); %Eosinophils 3.3 % (0.0-10.0); %Lymphocytes 22.2 % (21.0-51.0); %Monocytes 8.7 % (0.0-10.0); %Neutrophils 65.4 % (42.0-75.0); Hemoglobin 12.1 g/dL (14.0-18.0); Mean Corpuscular HGB CONC 33.3 g/dL (32.0-36.0); Mean Platelet Volume 7.6 fL (7.4-10.4); Platelet Count 219 10x3/uL (130-400); RBC Distribution Width 13.4 % (11.5-14.5); Red Blood Cell (RBC) Count 3.78 mill/uL (4.70-6.10); White Blood Cell (WBC) Count 6.3 10x3/uL (4.8-10.8)
[2022-01-26 10:23] LABS: Albumin 3.7 g/dL (3.5-5.0)
[2022-01-26 10:25] LABS: Calcium 8.4 mg/dL (7.8-10.44); Chloride 95 mmol/L (98-107); Potassium 3.2 mmol/L (3.5-5.1); Sodium 136 mmol/L (136-145)
[2022-01-26 10:26] LABS: Globulin 3.9 g/dL (2.4-3.5); Glucose 97 mg/dL (70-105); Protein, Total 7.6 g/dL (6.0-8.3)
[2022-01-26 10:28] LABS: Anion Gap 17 mmol/L (10-20); Bilirubin, Total 0.7 mg/dL (0.2-1.2); Carbon Dioxide 27 mmol/L (22-29)
[2022-01-26 10:29] LABS: Alkaline Phosphatase 89 U/L (40-110); Calc. Creatinine Clearance 8 mL/min (70-130); Estimated GFR 4
[2022-01-26 10:30] LABS: BUN (Urea Nitrogen) 28 mg/dL (8.4-25.7)
[2022-01-26 10:31] LABS: AST (SGOT) 10 U/L (5-34)
[2022-01-26 10:32] LABS: ALT (SGPT) Less than 7 U/L (8-55)
[2022-01-26] MEDS ORDERED: Heparin 10,000 UNITS/ 10 ML VIAL ONE (12:14)
[2022-01-26 15:13] LABS: Absolute CD4 615 /uL (359-1519); Lymphocytes/Gated Cell Count 1.5 x10E3/uL (0.7-3.1); Total Lymphocyte 19 % (Not Estab.)
[2022-01-26] MEDS: Atorvastatin Calcium 40 MG TAB PO SCH (21:34)
[2022-01-27 05:16] LABS: #Eosinphils 0.3 thou/uL (0.0-0.7); #Lymphocytes 1.9 thou/uL (1.20-3.40); #Monocytes 0.6 thou/uL (0.11-0.59); #Neutrophils 3.7 thou/uL (1.40-6.50); %Basophils 0.2 % (0.0-1.0); %Eosinophils 4.4 % (0.0-10.0); %Monocytes 9.6 % (0.0-10.0); %Neutrophils 56.8 % (42.0-75.0); Hemoglobin 11.8 g/dL (14.0-18.0); Mean Corpuscular HGB CONC 32.4 g/dL (32.0-36.0); Mean Corpuscular Hemoglobin 30.9 pg (27.0-31.0); Mean Corpuscular Volume 95.3 fl (78.0-98.0); Mean Platelet Volume 7.8 fL (7.4-10.4); Platelet Count 236 10x3/uL (130-400); RBC Distribution Width 13.3 % (11.5-14.5); Red Blood Cell (RBC) Count 3.82 mill/uL (4.70-6.10); White Blood Cell (WBC) Count 6.5 10x3/uL (4.8-10.8)
[2022-01-27 05:40] LABS: ALT (SGPT) Less than 7 U/L (8-55); AST (SGOT) 7 U/L (5-34); Albumin 3.7 g/dL (3.5-5.0); Alkaline Phosphatase 88 U/L (40-110); Anion Gap 13 mmol/L (10-20); BUN (Urea Nitrogen) 16 mg/dL (8.4-25.7); Bilirubin, Total 0.6 mg/dL (0.2-1.2); Calc. Creatinine Clearance 13 mL/min (70-130); Calcium 8.5 mg/dL (7.8-10.44); Carbon Dioxide 30 mmol/L (22-29); Chloride 96 mmol/L (98-107); Estimated GFR 6; Glucose 105 mg/dL (70-105); Potassium 3.3 mmol/L (3.5-5.1); Protein, Total 7.7 g/dL (6.0-8.3); Sodium 136 mmol/L (136-145)
[2022-01-27] MEDS ORDERED: Potassium Chloride 20 MEQ TAB PO SCH (08:00)
[2022-01-27] MEDS: hydrALAZINE 25 MG TAB PO SCH ×3 (08:14→19:53)
[2022-01-27] MEDS: levETIRAcetam 500 MG TAB PO SCH (08:14)
[2022-01-27] MEDS: Pantoprazole 40 MG VIAL IVP SCH (08:14)
[2022-01-27] MEDS: Folic Acid/Vit B Comp W-C PO SCH (08:14)
[2022-01-27] MEDS: NIFEdipine XL 90 MG TAB PO SCH ×2 (08:14→19:54)
[2022-01-27] MEDS: Aspirin 81 mg Enteric Coated Tablet PO SCH (08:15)
[2022-01-27] MEDS: Heparin 5,000 UNITS/ML VIAL SC SCH ×3 (08:15→19:54)
[2022-01-27] MEDS: Ferric Citrate [Auryxia] 210 MG Tablet PO SCH ×3 (08:15→16:21)
[2022-01-27] MEDS ORDERED: Darunavir/Cobicistat [Prezcobix 800 Mg-150 Mg Tablet PO SCH (16:15)
[2022-01-27] MEDS: Darunavir/Cobicistat [Prezcobix 800 Mg-150 Mg Tablet PO SCH (16:18)
[2022-01-27 18:37] LABS: HIV-1 Quantitative, RNA PCR <20 copies/mL (.)
[2022-01-27] MEDS ORDERED: Acetaminophen 325 MG TAB PO PRN (19:54)
[2022-01-27] MEDS: Atorvastatin Calcium 40 MG TAB PO SCH (19:54)
[2022-01-28 05:27] LABS: #Basophils 0.1 thou/uL (0.0-0.2); #Eosinphils 0.3 thou/uL (0.0-0.7); #Lymphocytes 1.8 thou/uL (1.20-3.40); #Monocytes 0.6 thou/uL (0.11-0.59); #Neutrophils 3.3 thou/uL (1.40-6.50); %Basophils 0.8 % (0.0-1.0); %Eosinophils 4.8 % (0.0-10.0); %Lymphocytes 29.4 % (21.0-51.0); %Monocytes 10.2 % (0.0-10.0); %Neutrophils 54.7 % (42.0-75.0); Hemoglobin 11.5 g/dL (14.0-18.0); Mean Corpuscular HGB CONC 32.5 g/dL (32.0-36.0); Mean Corpuscular Hemoglobin 30.9 pg (27.0-31.0); Mean Corpuscular Volume 95.1 fl (78.0-98.0); Mean Platelet Volume 7.5 fL (7.4-10.4); Platelet Count 232 10x3/uL (130-400); RBC Distribution Width 13.3 % (11.5-14.5); Red Blood Cell (RBC) Count 3.73 mill/uL (4.70-6.10)
[2022-01-28 05:46] LABS: ALT (SGPT) Less than 7 U/L (8-55); AST (SGOT) 10 U/L (5-34); Albumin 3.7 g/dL (3.5-5.0); Alkaline Phosphatase 91 U/L (40-110); Anion Gap 14 mmol/L (10-20); BUN (Urea Nitrogen) 24 mg/dL (8.4-25.7); Bilirubin, Total 0.7 mg/dL (0.2-1.2); Calc. Creatinine Clearance 10 mL/min (70-130); Calcium 8.6 mg/dL (7.8-10.44); Carbon Dioxide 29 mmol/L (22-29); Chloride 95 mmol/L (98-107); Estimated GFR 5; Globulin 4.1 g/dL (2.4-3.5); Glucose 101 mg/dL (70-105); Potassium 3.9 mmol/L (3.5-5.1); Protein, Total 7.8 g/dL (6.0-8.3); Sodium 134 mmol/L (136-145)
[2022-01-28] MEDS: Ferric Citrate [Auryxia] 210 MG Tablet PO SCH ×4 (08:25→17:38)
[2022-01-28] MEDS: hydrALAZINE 25 MG TAB PO SCH ×3 (09:44→21:32)
[2022-01-28] MEDS: Folic Acid/Vit B Comp W-C PO SCH (09:45)
[2022-01-28] MEDS: levETIRAcetam 500 MG TAB PO SCH (09:45)
[2022-01-28] MEDS: Aspirin 81 mg Enteric Coated Tablet PO SCH (09:45)
[2022-01-28] MEDS: Heparin 5,000 UNITS/ML VIAL SC SCH ×3 (09:45→21:32)
[2022-01-28] MEDS: NIFEdipine XL 90 MG TAB PO SCH ×2 (09:45→21:32)
[2022-01-28] MEDS: Pantoprazole 40 MG VIAL IVP SCH (09:46)
[2022-01-28] MEDS: Darunavir/Cobicistat [Prezcobix 800 Mg-150 Mg Tablet PO SCH (09:46)
[2022-01-28] MEDS: Atorvastatin Calcium 40 MG TAB PO SCH (21:32)
[2022-01-29 06:03] LABS: #Eosinphils 0.4 thou/uL (0.0-0.7); #Lymphocytes 1.9 thou/uL (1.20-3.40); #Monocytes 0.6 thou/uL (0.11-0.59); #Neutrophils 3.1 thou/uL (1.40-6.50); %Basophils 0.1 % (0.0-1.0); %Lymphocytes 31.9 % (21.0-51.0); %Monocytes 9.8 % (0.0-10.0); %Neutrophils 52.3 % (42.0-75.0); Hemoglobin 10.7 g/dL (14.0-18.0); Mean Corpuscular HGB CONC 31.7 g/dL (32.0-36.0); Mean Corpuscular Hemoglobin 30.5 pg (27.0-31.0); Mean Corpuscular Volume 96.4 fl (78.0-98.0); Mean Platelet Volume 7.5 fL (7.4-10.4); Platelet Count 267 10x3/uL (130-400); RBC Distribution Width 13.2 % (11.5-14.5); Red Blood Cell (RBC) Count 3.51 mill/uL (4.70-6.10); White Blood Cell (WBC) Count 5.9 10x3/uL (4.8-10.8)
[2022-01-29 06:27] LABS: ALT (SGPT) Less than 7 U/L (8-55); AST (SGOT) 8 U/L (5-34); Albumin 3.6 g/dL (3.5-5.0); Alkaline Phosphatase 91 U/L (40-110); Anion Gap 15 mmol/L (10-20); BUN (Urea Nitrogen) 33 mg/dL (8.4-25.7); Bilirubin, Total 0.6 mg/dL (0.2-1.2); Calc. Creatinine Clearance 9 mL/min (70-130); Calcium 8.7 mg/dL (7.8-10.44); Carbon Dioxide 27 mmol/L (22-29); Chloride 94 mmol/L (98-107); Estimated GFR 4; Globulin 3.7 g/dL (2.4-3.5); Glucose 89 mg/dL (70-105); Potassium 4.2 mmol/L (3.5-5.1); Protein, Total 7.3 g/dL (6.0-8.3); Sodium 132 mmol/L (136-145)
[2022-01-29] MEDS ORDERED: Heparin 10,000 UNITS/ 10 ML VIAL ONE (08:41)
[2022-01-29] MEDS: Ferric Citrate [Auryxia] 210 MG Tablet PO SCH ×3 (09:23→16:54)
[2022-01-29] MEDS: Darunavir/Cobicistat [Prezcobix 800 Mg-150 Mg Tablet PO SCH (09:25)
[2022-01-29] MEDS: levETIRAcetam 500 MG TAB PO SCH (09:26)
[2022-01-29] MEDS: Pantoprazole 40 MG VIAL IVP SCH (09:26)
[2022-01-29] MEDS: Aspirin 81 mg Enteric Coated Tablet PO SCH (09:26)
[2022-01-29] MEDS: Folic Acid/Vit B Comp W-C PO SCH (09:26)
[2022-01-29] MEDS: NIFEdipine XL 90 MG TAB PO SCH (09:27)
[2022-01-29] MEDS: Heparin 5,000 UNITS/ML VIAL SC SCH ×2 (09:27→15:42)
[2022-01-29] MEDS: hydrALAZINE 25 MG TAB PO SCH ×2 (09:27→15:43)
[2022-01-29 15:38] VITALS: TEMP 97.6
[2022-01-29 15:43] VITALS: BP 136/86
[2022-01-30] MEDS ORDERED: Ergocalciferol 1.25 MG(50,000 UNITS) CAP PO SCH (09:00)
== END 2022-01-29 20:00 | DRG 917 ==
LOC: ERS 09:19 → IMCU/EMU 13:42 → NEURO 01-26 17:22
PROVIDERS: ADMIT Family Medicine; ATTEND Family Medicine
PROC: 5A1D70Z Performance of Urinary Filtration, Intermittent, Less than 6 Hours Per Day (ICD-10-PCS; principal; 2022-01-24)
DX: T40.5X1A Poisoning by cocaine, accidental (unintentional), initial encounter (principal); Z20.822 Contact with and (suspected) exposure to COVID-19; N18.6 End stage renal disease; I50.32 Chronic diastolic (congestive) heart failure; I13.2 Hypertensive heart and chronic kidney disease with heart failure and with stage 5 chronic kidney disease, or end stage renal disease; I16.1 Hypertensive emergency; G40.509 Epileptic seizures related to external causes, not intractable, without status epilepticus; Z21 Asymptomatic human immunodeficiency virus [HIV] infection status; E11.22 Type 2 diabetes mellitus with diabetic chronic kidney disease; E78.5 Hyperlipidemia, unspecified; S01.552A Open bite of oral cavity, initial encounter; F14.10 Cocaine abuse, uncomplicated; D63.1 Anemia in chronic kidney disease; I49.3 Ventricular premature depolarization; E87.6 Hypokalemia; Z99.2 Dependence on renal dialysis; Z86.73 Personal history of transient ischemic attack (TIA), and cerebral infarction without residual deficits; Z79.899 Other long term (current) drug therapy; Z79.82 Long term (current) use of aspirin; Z89.412 Acquired absence of left great toe; Z89.411 Acquired absence of right great toe; Z71.51 Drug abuse counseling and surveillance of drug abuser; Z91.199 Patient's noncompliance with other medical treatment and regimen due to unspecified reason
CPT/HCPCS: 36415; 36416; 70450; 70551; 80053; 80061; 80306; 80307; 81003; 81015; 82550; 83036; 83735; 84100; 84146; 85025; 86361; 86593; 86780; 87340; 87536; 90935; 93005; 95712; 95819; 95957; C9113; G0257; J0360; J1644; J1815; J1953; J2060; J2250; U0002